=== PATIENT | female | born 1950 | race Caucasian/White ===

== ENCOUNTER 2016-05-07 14:15 | Outpatient (RCR) | payer MEDICARE, OTHER | END 2016-08-05 | disposition home or self-care (01) | LOC: ONC 14:15 | PROVIDERS: ATTEND Internal Medicine Hematology & Oncology | DX: D05.12 Intraductal carcinoma in situ of left breast (principal); C82.91 Follicular lymphoma, unspecified, lymph nodes of head, face, and neck; Z85.41 Personal history of malignant neoplasm of cervix uteri; E11.65 Type 2 diabetes mellitus with hyperglycemia; E78.5 Hyperlipidemia, unspecified; Z90.79 Acquired absence of other genital organ(s); Z79.899 Other long term (current) drug therapy; Z79.82 Long term (current) use of aspirin; Z92.3 Personal history of irradiation | CPT/HCPCS: 99213 ==

== ENCOUNTER 2017-05-02 14:53 | Outpatient (RCR) | payer MEDICARE, OTHER | END 2017-07-31 | disposition home or self-care (01) | LOC: ONC 14:53 | PROVIDERS: ATTEND Internal Medicine Hematology & Oncology | DX: D05.12 Intraductal carcinoma in situ of left breast (principal); C82.91 Follicular lymphoma, unspecified, lymph nodes of head, face, and neck; Z85.41 Personal history of malignant neoplasm of cervix uteri; E11.65 Type 2 diabetes mellitus with hyperglycemia; E78.5 Hyperlipidemia, unspecified; Z90.79 Acquired absence of other genital organ(s); Z79.899 Other long term (current) drug therapy; Z79.82 Long term (current) use of aspirin; Z92.3 Personal history of irradiation | CPT/HCPCS: 99213 ==

== ENCOUNTER → 2017-05-24 | Outpatient (CLI) | payer MEDICARE, OTHER | LOC: RAD 15:48 | PROVIDERS: ATTEND Internal Medicine Hematology & Oncology | DX: Z12.31 Encounter for screening mammogram for malignant neoplasm of breast (principal); Z86.000 Personal history of in-situ neoplasm of breast | CPT/HCPCS: 77067 ==

== ENCOUNTER 2018-05-26 10:35 | Outpatient (RCR) | payer MEDICARE, OTHER | END 2018-08-24 | disposition home or self-care (01) | LOC: ONC 10:35 | PROVIDERS: ATTEND Internal Medicine Hematology & Oncology | DX: D05.12 Intraductal carcinoma in situ of left breast (principal); C82.10 Follicular lymphoma grade II, unspecified site; Z85.41 Personal history of malignant neoplasm of cervix uteri; E11.9 Type 2 diabetes mellitus without complications; I10 Essential (primary) hypertension; E66.9 Obesity, unspecified; Z68.38 Body mass index [BMI] 38.0-38.9, adult; Z90.79 Acquired absence of other genital organ(s); Z79.84 Long term (current) use of oral hypoglycemic drugs; Z79.899 Other long term (current) drug therapy; Z92.3 Personal history of irradiation | CPT/HCPCS: 99213 ==

== ENCOUNTER → 2018-05-29 | Outpatient (CLI) | payer MEDICARE, OTHER ==
--- NOTE | 2018-05-29 21:33 | Diagnostic Imaging Report ---
EXAM: Digital mammogram, bilateral screening with 3-D tomosynthesis and CAD. FINDINGS: This study was compared to the prior exams of 05/24/2017, 05/20/2016 and 05/12/2015. The patient has undergone a lumpectomy for carcinoma in 2011. At this time, there are no complaints. FINDINGS: The postsurgical changes involving the left breast seen previously are again evident and no different. There is no sign of recurrent malignancy in this area. There are scattered fibroglandular densities in both breasts which could obscure a lesion. Overall, there does not appear to have been any significant change. There is no primary or secondary sign of malignancy noted. IMPRESSION: There is no evidence for malignancy. ACR BI-RADS Category 1: Negative. Result letter will be mailed to the patient. Note: At least 10% of breast cancer is not imaged by mammography. Dictated by: Dictated on workstation # [id number]
== END ==
LOC: RAD 07:25
PROVIDERS: ATTEND Nurse Practitioner
DX: Z12.31 Encounter for screening mammogram for malignant neoplasm of breast (principal); Z85.3 Personal history of malignant neoplasm of breast
CPT/HCPCS: 77067

== ENCOUNTER 2019-05-31 10:36 | Outpatient (RCR) | payer MEDICARE, OTHER ==
[2019-05-31 10:51] LABS: BASOPHILS % (AUTO) 0 % (0-10); EOSINOPHILS % (AUTO) 0 % (0-10); HEMATOCRIT 39 % (35-52); HEMOGLOBIN 12.9 G/DL (11.5-16.0); LYMPHOCYTES # (AUTO) 1.8 X 10^3 (1.0-4.0); LYMPHOCYTES % (AUTO) 26 % (12-44); MEAN CORPUSCULAR HEMOGLOBIN 29 PG (25-34); MEAN CORPUSCULAR HGB CONC 33 G/DL (32-36); MEAN CORPUSCULAR VOLUME 89 FL (80-99); MEAN PLATELET VOLUME 11.1 FL (7.4-10.4); MONOCYTES # (AUTO) 0.5 X 10^3 (0.0-1.0); MONOCYTES % (AUTO) 7 % (0-12); NEUTROPHILS # (AUTO) 4.6 X 10^3 (1.8-7.8); NEUTROPHILS % (AUTO) 67 % (42-75); PLATELET COUNT 282 10^3/uL (130-400); RED CELL DISTRIBUTION WIDTH 12.5 % (10.0-14.5)
[2019-05-31 11:10] LABS: ALANINE AMINOTRANSFERASE 12 U/L (0-55); ALBUMIN 4.4 GM/DL (3.2-4.5); ALKALINE PHOSPHATASE 97 U/L (40-136); BUN/CREATININE RATIO 19; CALCIUM 9.8 MG/DL (8.5-10.1); CARBON DIOXIDE 24 MMOL/L (21-32); CHLORIDE 101 MMOL/L (98-107); CREATININE SERUM 0.86 MG/DL (0.60-1.30); GFR ESTIMATED > 60; GLUCOSE 190 MG/DL (70-105); POTASSIUM 3.6 MMOL/L (3.6-5.0); SODIUM 140 MMOL/L (135-145); TOTAL PROTEIN 8.2 GM/DL (6.4-8.2)
[2019-05-31 12:00] LABS: BILIRUBIN,TOTAL < 0.5 MG/DL (0.1-1.0)
== END 2019-06-17 | disposition home or self-care (01) ==
LOC: ONC 10:36
PROVIDERS: ATTEND Internal Medicine Hematology & Oncology
DX: D05.12 Intraductal carcinoma in situ of left breast (principal); C82.10 Follicular lymphoma grade II, unspecified site; Z85.41 Personal history of malignant neoplasm of cervix uteri; E11.9 Type 2 diabetes mellitus without complications; I10 Essential (primary) hypertension; E66.9 Obesity, unspecified; Z68.38 Body mass index [BMI] 38.0-38.9, adult; Z90.79 Acquired absence of other genital organ(s); Z79.84 Long term (current) use of oral hypoglycemic drugs; Z79.899 Other long term (current) drug therapy; Z92.3 Personal history of irradiation
CPT/HCPCS: 80053; 83615; 85025; 99213

== ENCOUNTER → 2019-06-08 | Outpatient (CLI) | payer MEDICARE, OTHER ==
--- NOTE | 2019-06-08 11:41 | Diagnostic Imaging Report ---
INDICATION: Routine screening. Comparison is made with prior mammograms from 05/29/2018 and 05/24/2017. 2-D and 3-D bilateral screening mammography was performed. The current study was also evaluated with a Computer Aided Detection (CAD) system. 3-D tomosynthesis was also performed and reviewed. FINDINGS: Scattered fibroglandular densities are identified bilaterally. Postsurgical changes of lumpectomy in the upper left breast appear stable. No definite recurrence is seen. There are benign parenchymal and vascular calcifications bilaterally. The axillae are unremarkable. IMPRESSION: No mammographic features suspicious for malignancy are identified. ACR BI-RADS Category 2: Benign findings. Result letter will be mailed to the patient. Note: At least 10% of breast cancer is not imaged by mammography. Dictated by: Dictated on workstation # [id number]
== END ==
LOC: RAD 08:05
PROVIDERS: ATTEND Internal Medicine Hematology & Oncology
DX: Z12.31 Encounter for screening mammogram for malignant neoplasm of breast (principal); D05.12 Intraductal carcinoma in situ of left breast
CPT/HCPCS: 77067

== ENCOUNTER → 2020-06-03 | Outpatient (CLI) | payer MEDICARE, OTHER ==
[2020-06-03 09:46] LABS: BASOPHILS % (AUTO) 1 % (0-10); EOSINOPHILS % (AUTO) 1 % (0-10); HEMATOCRIT 38 % (35-52); HEMOGLOBIN 12.4 g/dL (11.5-16.0); LYMPHOCYTES # (AUTO) 1.8 10^3/uL (1.0-4.0); LYMPHOCYTES % (AUTO) 35 % (12-44); MEAN CORPUSCULAR HEMOGLOBIN 30 pg (25-34); MEAN CORPUSCULAR HGB CONC 33 g/dL (32-36); MEAN CORPUSCULAR VOLUME 90 fL (80-99); MEAN PLATELET VOLUME 10.6 fL (9.0-12.2); MONOCYTES # (AUTO) 0.4 10^3/uL (0.0-1.0); MONOCYTES % (AUTO) 8 % (0-12); NEUTROPHILS % (AUTO) 57 % (42-75); PLATELET COUNT 252 10^3/uL (130-400); WHITE BLOOD COUNT 5.2 10^3/uL (4.3-11.0)
[2020-06-03 10:08] LABS: ALANINE AMINOTRANSFERASE 21 U/L (0-55); ALBUMIN 3.9 GM/DL (3.2-4.5); ALKALINE PHOSPHATASE 93 U/L (40-136); BILIRUBIN,TOTAL 0.5 MG/DL (0.1-1.0); BUN/CREATININE RATIO 20; CALCIUM 9.2 MG/DL (8.5-10.1); CARBON DIOXIDE 24 MMOL/L (21-32); CHLORIDE 104 MMOL/L (98-107); CREATININE SERUM 0.81 MG/DL (0.60-1.30); GFR ESTIMATED > 60; GLUCOSE 181 MG/DL (70-105); POTASSIUM 3.6 MMOL/L (3.6-5.0); SODIUM 140 MMOL/L (135-145); TOTAL PROTEIN 7.5 GM/DL (6.4-8.2)
== END ==
LOC: EDSTATUS 06-18 16:05 → ONC 09:12
PROVIDERS: ATTEND Internal Medicine Hematology & Oncology
DX: D05.12 Intraductal carcinoma in situ of left breast (principal); Z85.72 Personal history of non-Hodgkin lymphomas; Z85.830 Personal history of malignant neoplasm of bone
CPT/HCPCS: 80053; 83615; 85025; G0463; 99213

== ENCOUNTER → 2020-06-10 | Outpatient (CLI) | payer MEDICARE, OTHER ==
--- NOTE | 2020-06-10 13:03 | Diagnostic Imaging Report ---
INDICATION: Routine screening. COMPARISON: 06/08/2019 and 05/29/2018. TECHNIQUE: 2D and 3D bilateral screening mammography was performed with CAD. FINDINGS: Scattered fibroglandular densities are identified bilaterally. Post-lumpectomy changes in the upper posterior left breast are again noted. There are benign calcifications. No new mass or malignant appearing microcalcifications are seen. The axillae are unremarkable. IMPRESSION: No mammographic features suspicious for malignancy are identified. ACR BI-RADS Category 2: Benign findings. Result letter will be mailed to the patient. Note: At least 10% of breast cancer is not imaged by mammography. Dictated by: Dictated on workstation # [id number]
== END ==
LOC: RAD 10:00
PROVIDERS: ATTEND Internal Medicine Hematology & Oncology
DX: Z12.31 Encounter for screening mammogram for malignant neoplasm of breast (principal); D05.12 Intraductal carcinoma in situ of left breast; Z98.890 Other specified postprocedural states
CPT/HCPCS: 77063; 77067

== ENCOUNTER → 2021-06-02 | Outpatient (CLI) | payer MEDICARE, OTHER ==
[2021-06-02 10:02] LABS: BASOPHILS # (AUTO) 0.1 10^3/uL (0.0-0.1); BASOPHILS % (AUTO) 1 % (0-10); EOSINOPHILS % (AUTO) 1 % (0-10); HEMATOCRIT 40 % (35-52); HEMOGLOBIN 13.5 g/dL (11.5-16.0); LYMPHOCYTES # (AUTO) 2.1 10^3/uL (1.0-4.0); LYMPHOCYTES % (AUTO) 35 % (12-44); MEAN CORPUSCULAR HEMOGLOBIN 30 pg (25-34); MEAN CORPUSCULAR HGB CONC 34 g/dL (32-36); MEAN CORPUSCULAR VOLUME 89 fL (80-99); MEAN PLATELET VOLUME 11.4 fL (9.0-12.2); MONOCYTES # (AUTO) 0.4 10^3/uL (0.0-1.0); MONOCYTES % (AUTO) 7 % (0-12); NEUTROPHILS # (AUTO) 3.3 10^3/uL (1.8-7.8); NEUTROPHILS % (AUTO) 56 % (42-75); PLATELET COUNT 222 10^3/uL (130-400); WHITE BLOOD COUNT 5.9 10^3/uL (4.3-11.0)
[2021-06-02 10:22] LABS: BILIRUBIN,TOTAL 0.6 MG/DL (0.1-1.0); CALCIUM 9.9 MG/DL (8.5-10.1); CREATININE SERUM 1.12 MG/DL (0.60-1.30); POTASSIUM 3.7 MMOL/L (3.6-5.0)
== END ==
LOC: ONC 09:52
PROVIDERS: ATTEND Internal Medicine Hematology & Oncology
DX: D05.12 Intraductal carcinoma in situ of left breast (principal); C82.90 Follicular lymphoma, unspecified, unspecified site; I10 Essential (primary) hypertension; E66.9 Obesity, unspecified; Z90.12 Acquired absence of left breast and nipple; Z92.3 Personal history of irradiation; Z85.41 Personal history of malignant neoplasm of cervix uteri; Z92.21 Personal history of antineoplastic chemotherapy
CPT/HCPCS: 80053; 83615; 85025; G0463; 99213

== ENCOUNTER → 2021-06-08 | Outpatient (CLI) | payer MEDICARE ==
--- NOTE | 2021-06-08 12:50 | Diagnostic Imaging Report ---
INDICATION: Left breast carcinoma. COMPARISON: 06/10/2020 and 06/08/2019. TECHNIQUE: 2D and 3D bilateral diagnostic mammography was performed with CAD. FINDINGS: Scattered fibroglandular densities are identified bilaterally. Lumpectomy changes in the upper left breast at posterior depth appear stable. No new mass is identified. No malignant-appearing microcalcifications are seen. There are benign calcifications bilaterally. The axillae are unremarkable. IMPRESSION: No mammographic features suspicious for malignancy are identified. ACR BI-RADS Category 2: Benign findings. Result letter will be mailed to the patient. Note: At least 10% of breast cancer is not imaged by mammography. Dictated by: Dictated on workstation # [id number]
== END ==
LOC: RAD 12:45
PROVIDERS: ATTEND Nurse Practitioner Adult Health
DX: D05.12 Intraductal carcinoma in situ of left breast (principal)
CPT/HCPCS: 77066; G0279; 77062

== ENCOUNTER 2021-10-11 12:09 | Inpatient (IN) | payer MEDICARE ==
[~2021-10-11] VITALS: Ht 167.7 cm; Wt 96.7 kg
[2021-10-11] VITALS (9 sets, daily range): BP systolic 120–188; BP diastolic 61–122
[2021-10-11 12:27] LABS: BASOPHILS % (AUTO) 1 % (0-10); EOSINOPHILS % (AUTO) 0 % (0-10); HEMATOCRIT 41 % (35-52); HEMOGLOBIN 13.7 g/dL (11.5-16.0); LYMPHOCYTES # (AUTO) 1.8 10^3/uL (1.0-4.0); LYMPHOCYTES % (AUTO) 21 % (12-44); MEAN CORPUSCULAR HEMOGLOBIN 30 pg (25-34); MEAN CORPUSCULAR HGB CONC 34 g/dL (32-36); MEAN CORPUSCULAR VOLUME 89 fL (80-99); MEAN PLATELET VOLUME 11.3 fL (9.0-12.2); MONOCYTES # (AUTO) 0.4 10^3/uL (0.0-1.0); MONOCYTES % (AUTO) 5 % (0-12); NEUTROPHILS # (AUTO) 6.1 10^3/uL (1.8-7.8); NEUTROPHILS % (AUTO) 73 % (42-75); PLATELET COUNT 213 10^3/uL (130-400); WHITE BLOOD COUNT 8.4 10^3/uL (4.3-11.0)
[2021-10-11] MEDS ORDERED: ONDANSETRON 4 MG/2 ML (SDV) Z0FRAN IVP ONE (12:30)
[2021-10-11 12:38] LABS: ALBUMIN 4.3 GM/DL (3.2-4.5); CHLORIDE 99 MMOL/L (98-107); POTASSIUM 3.4 MMOL/L (3.6-5.0); SODIUM 139 MMOL/L (135-145)
[2021-10-11 12:39] LABS: CALCIUM 9.6 MG/DL (8.5-10.1)
[2021-10-11 12:40] LABS: FIBRIN DEGRADATION PRODUCTS 0.78 UG/ML (0.00-0.49); GLUCOSE 368 MG/DL (70-105); INR 0.9 (0.8-1.4); PROTHROMBIN TIME PATIENT 12.6 SEC (12.2-14.7); TOTAL PROTEIN 8.4 GM/DL (6.4-8.2)
[2021-10-11 12:41] LABS: CARBON DIOXIDE 23 MMOL/L (21-32)
[2021-10-11 12:42] LABS: BILIRUBIN,TOTAL 0.6 MG/DL (0.1-1.0)
[2021-10-11 12:44] LABS: ALKALINE PHOSPHATASE 122 U/L (40-136); CREATININE SERUM 0.94 MG/DL (0.60-1.30); GFR ESTIMATED 65
[2021-10-11 12:45] LABS: BUN/CREATININE RATIO 12
[2021-10-11] MEDS ORDERED: CATHETER FLUSH 10 ML SYR IV PRN (12:45)
[2021-10-11] MEDS ORDERED: IOHEXOL 350 MG/ML 100 ML (OMNIPAQUE 350) VIAL IV ONE (12:45)
[2021-10-11] MEDS ORDERED: HOLD METFORMIN - RECEIVED CONTRAST 20 ML VIAL IV SCH (12:45)
[2021-10-11] MEDS ORDERED: NS 100 ML (IVPB) BAG IV ONE (12:45)
--- NOTE | 2021-10-11 12:45 | Diagnostic Imaging Report ---
PROCEDURE: CT head wo r/o stroke. TECHNIQUE: Multiple contiguous axial images were obtained through the brain without the use of intravenous contrast. Auto Exposure Controls were utilized during the CT exam to meet ALARA standards for radiation dose reduction. INDICATION: Left-sided weakness. FINDINGS: Noncontrasted head CT performed. I have no priors for comparison. There is moderate cerebrocortical atrophy. There is substantial periventricular white matter disease, relatively symmetric and while nonspecific, most often associated with the sequelae of chronic small vessel disease. There was no sulcal effacement. No cortical edema. There is a lacunar infarct in the right thalamus, favored to be old. There is no hemorrhage. No findings of elevation of the intracerebral pressures. There are ossifications along the falx and dura, chronic and incidental. No abnormal extra-axial fluid collection. There are intracranial carotid atherosclerotic vascular calcifications. No suspicious asymmetric intraluminal arterial hyperdensities are found. There is no loss of the normal insular ribbon. IMPRESSION: No hemorrhage or edema. Likely old lacunar infarct. Right thalamus atrophy, ventriculomegaly, and likely chronic symmetrical periventricular white matter small vessel disease with no acute-appearing abnormality apparent. Dictated by: Dictated on workstation # [id number]
[2021-10-11 12:47] LABS: ALANINE AMINOTRANSFERASE 25 U/L (0-55)
--- NOTE | 2021-10-11 12:49 | Diagnostic Imaging Report ---
PROCEDURE: CT cervical spine without contrast. TECHNIQUE: Multiple contiguous axial images were obtained through the cervical spine without the use of intravenous contrast. Sagittal and coronal reformations were then performed. Auto Exposure Controls were utilized during the CT exam to meet ALARA standards for radiation dose reduction. INDICATION: Fall and left-sided weakness. FINDINGS: There is straightening of the normal cervical lordotic curvature. There is minimal anterolisthesis of C4 on C5. Multilevel degenerative disc disease is noted with variable disc space narrowing and marginal spurring. There is multilevel facet arthropathy. No fractures are identified. Prevertebral tissues are within normal limits. Odontoid is intact. There does appear to be a probable large mass arising from the left lobe of the thyroid. IMPRESSION: 1. Cervical spondylosis. No acute bony abnormality is detected. 2. Left lobe thyroid mass. Dedicated thyroid ultrasound on a nonemergent basis could be performed for better characterization. Dictated by: Dictated on workstation # [id number]
[2021-10-11 12:54] LABS: BILIRUBIN,URINE NEGATIVE (NEGATIVE); CLARITY,URINE CLEAR; COLOR,URINE YELLOW; GLUCOSE, URINE (UA) 3+ (NEGATIVE); KETONES,URINE TRACE (NEGATIVE); LEUKOCYTE ESTERASE ,URINE NEGATIVE (NEGATIVE); NITRITE,URINE NEGATIVE (NEGATIVE); PROTEIN,URINE 1+ (NEGATIVE)
--- NOTE | 2021-10-11 12:57 | Diagnostic Imaging Report ---
INDICATION: Altered mental status FINDINGS: No priors The heart size is within normal limits. There is however prominence of the central vascularity. There is thickening of the central airways and perihilar bronchial cuffing. No haider edema or focal consolidating pneumonia. No pleural fluid. IMPRESSION: There is some perihilar vascular prominence as well as thickening of the central airways suggestive of bronchitis. No focal pneumonia or pleural pathology. Dictated by: Dictated on workstation # [id number]
[2021-10-11 13:00] LABS: BACTERIA,URINE NEGATIVE /HPF
--- NOTE | 2021-10-11 13:09 | Diagnostic Imaging Report ---
PROCEDURE: CT angiography of the head and CT angiography of the neck with and without contrast. TECHNIQUE: Contiguous noncontrast images were obtained from the skull base through the vertex. After intravenous contrast administration, helical CT angiography of the neck was performed. Source data was reformatted into 3D MIP projections. Delayed post contrast acquisition was also obtained. Auto Exposure Controls were utilized during the CT exam to meet ALARA standards for radiation dose reduction. INDICATION: Altered mental status. COMPARISON: Exam correlated with head CT of earlier this same date. No prior angiographic studies. FINDINGS: Delayed post contrast-enhanced head CT revealed no abnormal parenchymal or meningeal enhancement. There is enhancement of the major dural venous sinuses. CT ANGIO NECK: Aortic arch and branching pattern of the great vessels is normal. There are bilateral mixed solid and cystic thyroid masses with some peripheral coarse calcifications, likely adenomatous disease but nonemergent outpatient dedicated thyroid ultrasound recommended at some point. The right vertebral artery is dominant and widely patent. The left vertebral is small but not pathologic. This is a congenital finding, as evidenced by the small left-sided cervical transverse foramen. No acute vertebral arterial pathology is found. There are mild calcified plaques at the carotid bifurcations extending into the proximal ICAs without significant stenosis, this is greater left than right. No carotid intimal injury or dissection. No hemodynamically significant stenosis. No pseudoaneurysm. CT ANGIO HEAD: The dominant intrathecal right vertebral artery is widely patent through the basilar. Small-caliber left vertebral terminates as the PICA as a variant. The basilar is patent. 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 Intracranial ICAs showed no hemodynamically significant degree of stenosis. The A1 segments, the ACOM, and the ulr-er-ogouoc anterior cerebral arteries are normal. The bilateral middle cerebral arterial segments and their primary branches are patent. No asymmetric cortical perfusion and opacification of vascularity. No thrombus. No aneurysm. IMPRESSION: 1. No hemodynamically significant cervical or intracranial arterial stenosis. No large vessel occlusion, thrombus, dissection, or acute arterial pathology. 2. Likely goiterous thyroid but nonemergent outpatient sonographic correlation recommended. 3. Chronic atrophy, white matter disease, and an old-appearing right thalamic lacunar infarct. Dictated by: Dictated on workstation # [id number]
[2021-10-11 14:31] LABS: AMPHETAMINE SCREEN, URINE NEGATIVE (NEGATIVE); BARBITURATE SCREEN URINE NEGATIVE (NEGATIVE); BENZODIAZEPINES SCREEN URINE NEGATIVE (NEGATIVE); CANNABINOID SCREEN, URINE NEGATIVE (NEGATIVE); COCAINE SCREEN URINE NEGATIVE (NEGATIVE); METHADONE STAT NEGATIVE (NEGATIVE); OPIATE SCREEN URINE NEGATIVE (NEGATIVE); OXYCODONE STAT NEGATIVE (NEGATIVE); PROPOXYPHENE STAT NEGATIVE (NEGATIVE); TRICYCLIC ANTIDEPRESSANTS SCRE NEGATIVE (NEGATIVE)
[2021-10-11 14:45] LABS: FREE T4 (FREE THYROXINE) 1.05 NG/DL (0.70-1.48)
[2021-10-11] MEDS ORDERED: SCOPOLAMINE 1.5 MG (TRANSDERM-SCOP) PATCH TD ONE (16:00)
[2021-10-11] MEDS: niCARdipine IV 50 MG in NS (IVPB) 230 ML IV SCH ×3 (16:00→21:14)
--- NOTE | 2021-10-11 16:15 | ED Neurological Problem ---
General Chief Complaint: Neurological Problems Stated Complaint: AMS/POSS STROKE Nursing Triage Note: PT TO ROOM 03 [facility]IA [facility] WITH C/O CONFUSION AND WEAKNESS. PER EMS, STATED THAT PT WAS "FINE WHEN SHE WENT TO BED LAST NIGHT". Source: patient Exam Limitations: no limitations History of Present Illness Date Seen by Provider: Oct 11, 2021 Time Seen by Provider: 12:10 Initial Comments This is 70-year-old woman presents to the emergency room via EMS with primary complaint of altered mental status and general weakness. Her significant other notes that her last known well time was somewhere between 0530 and 0700. She seemed to be normal this morning when she woke up. However, when her significant other (Kwaku Conroy, ) came back into the house around 0700, he noted that she was not verbally as responsive as she had been earlier. When she got up to walk, he noted that she was unsteady on her feet. These symptoms seem to worsen to the extent he wanted to bring her to the emergency room. She was not able to make it to the car and slumped down to the ground. Kwaku thought she could not see well around this time. There was no trauma associated with this. By the time she arrives to the hospital she is not answering questions and appears nonverbal. At 1 point there was report of right-sided weakness but this was not observed by ER staff nor the significant other. In fact, in CT scan she was noted to reach up with purposeful movement and scratch her nose with her right hand. Stroke activation was paged and patient was taken promptly to CT. EMS noted she was significantly hypertensive with systolic blood pressures as high as the 220s. Patient does have a known history of hypertension and it is unknown when she last took her medications. The significant other has no suspicion of overdose, although he does note she takes numerous herbal supplements of which he disapproves. Patient was also vomiting prior to arrival. A meaningful NIH stroke score was not obtained as patient was not following instructions during attempt to perform the NIH tests. Patient's power of employment attorney is her niece, Laura Romo, . Allergies and Home Medications Allergies Coded Allergies: No Known Drug Allergies (Verified , 05/02/07) Patient Home Medication List Home Medication List Reviewed: Yes Review of Systems Review of Systems Constitutional: see HPI, weakness Eyes: See HPI Ears, Nose, Mouth, Throat: no symptoms reported Respiratory: no symptoms reported Cardiovascular: see HPI Gastrointestinal: see HPI Genitourinary: no symptoms reported : No Musculoskeletal: no symptoms reported Skin: no symptoms reported Psychiatric/Neurological: No Symptoms Reported Endocrine: No Symptoms Reported Past Fzjfmew-Kgrqdb-Dczkro Hx Patient Social History Smoking Status: Unknown if Ever Smoked Smokeless Tobacco Frequency: Unknown if Ever Used Use of E-Cig and/or Vaping dev: Unable to obtain Use of E-Cig and/or Vaping Parveen: Unknown if Ever Used Substance use?: Unable to obtain Alcohol Use?: Unable to obtain Pt feels they are or have been: Unable to obtain Past Medical History Surgeries: Yes Breast (For treatment of breast cancer) Cardiac: Yes Hypertension Neurological: No : No Reproductive Disorders: No Genitourinary: No Gastrointestinal: No Musculoskeletal: No Endocrine: Yes Diabetes, Non-Insulin dep HEENT: No Cancer: Yes Breast, Lymphoma Did You Recieve Any Treatments: Yes What Type of Treatment Did You: Surgical Intervention Psychosocial: No Physical Exam Vital Signs Vital Signs - First Documented 10/11/21 12:09 Temp 36.5 Pulse 105 Resp 16 B/P (MAP) 231/107 (148) Pulse Ox 94 O2 Delivery Nasal Cannula O2 Flow Rate 2.00 Capillary Refill : Less Than 3 Seconds Height, Weight, BMI Height: '" Weight: lbs. oz. kg; 29.00 BMI Method: General Appearance: WD/WN, no apparent distress HEENT: PERRL/EOMI, normal ENT inspection Neck: normal inspection Respiratory: lungs clear, normal breath sounds, no respiratory distress Cardiovascular: regular rate, rhythm, no edema, no murmur Gastrointestinal: non tender, soft; No distended Extremities: normal inspection, no pedal edema Neurologic/Psychiatric: other (Basically unresponsive to voice and not following commands. Moves all 4 extremities equally and demonstrates purposeful movement with actions such as scratching her nose or pulling up the covers.) Crainal Nerves: PERRL Motor/Sensory: no motor deficit Skin: normal color, warm/dry Progress/Results/Core Measures Results/Orders Lab Results Laboratory Tests Test 10/11/21 12:18 10/11/21 12:45 Range/Units White Blood Count 8.4 4.3-11.0 10^3/uL Red Blood Count 4.56 3.80-5.11 10^6/uL Hemoglobin 13.7 11.5-16.0 g/dL Hematocrit 41 35-52 % Mean Corpuscular Volume 89 80-99 fL Mean Corpuscular Hemoglobin 30 25-34 pg Mean Corpuscular Hemoglobin Concent 34 32-36 g/dL Red Cell Distribution Width 12.0 10.0-14.5 % Platelet Count 213 130-400 10^3/uL Mean Platelet Volume 11.3 9.0-12.2 fL Immature Granulocyte % (Auto) 0 % Neutrophils (%) (Auto) 73 42-75 % Lymphocytes (%) (Auto) 21 12-44 % Monocytes (%) (Auto) 5 0-12 % Eosinophils (%) (Auto) 0 0-10 % Basophils (%) (Auto) 1 0-10 % Neutrophils # (Auto) 6.1 1.8-7.8 10^3/uL Lymphocytes # (Auto) 1.8 1.0-4.0 10^3/uL Monocytes # (Auto) 0.4 0.0-1.0 10^3/uL Eosinophils # (Auto) 0.0 0.0-0.3 10^3/uL Basophils # (Auto) 0.0 0.0-0.1 10^3/uL Immature Granulocyte # (Auto) 0.0 0.0-0.1 10^3/uL Neutrophils % (Manual) 68 % Lymphocytes % (Manual) 24 % Monocytes % (Manual) 5 % Basophils % (Manual) 1 % Band Neutrophils 2 % Blood Morphology Comment NORMAL Prothrombin Time 12.6 12.2-14.7 SEC INR Comment 0.9 0.8-1.4 Activated Partial Thromboplast Time 24 24-35 SEC D-Dimer 0.78 H 0.00-0.49 UG/ML Sodium Level 139 135-145 MMOL/L Potassium Level 3.4 L 3.6-5.0 MMOL/L Chloride Level 99 98-107 MMOL/L Carbon Dioxide Level 23 21-32 MMOL/L Anion Gap 17 H 5-14 MMOL/L Blood Urea Nitrogen 11 7-18 MG/DL Creatinine 0.94 0.60-1.30 MG/DL Estimat Glomerular Filtration Rate 65 BUN/Creatinine Ratio 12 Glucose Level 368 H 70-105 MG/DL Calcium Level 9.6 8.5-10.1 MG/DL Corrected Calcium 9.4 8.5-10.1 MG/DL Total Bilirubin 0.6 0.1-1.0 MG/DL Aspartate Amino Transf (AST/SGOT) 18 5-34 U/L Alanine Aminotransferase (ALT/SGPT) 25 0-55 U/L Alkaline Phosphatase 122 40-136 U/L Troponin I < 0.028 <0.028 NG/ML C-Reactive Protein High Sensitivity 0.36 0.00-0.50 MG/DL Total Protein 8.4 H 6.4-8.2 GM/DL Albumin 4.3 3.2-4.5 GM/DL Procalcitonin 0.05 <0.10 NG/ML Thyroid Stimulating Hormone (TSH) 0.01 L 0.35-4.94 UIU/ML Free Thyroxine 1.05 0.70-1.48 NG/DL Serum Alcohol < 10 <10 MG/DL Urine Color YELLOW Urine Clarity CLEAR Urine pH 7.0 5-9 Urine Specific [place] 1.010 L 1.016-1.022 Urine Protein 1+ H NEGATIVE Urine Glucose (UA) 3+ H NEGATIVE Urine Ketones TRACE H NEGATIVE Urine Nitrite NEGATIVE NEGATIVE Urine Bilirubin NEGATIVE NEGATIVE Urine Urobilinogen 0.2 < = 1.0 MG/DL Urine Leukocyte Esterase NEGATIVE NEGATIVE Urine RBC (Auto) 1+ H NEGATIVE Urine RBC 5-10 H /HPF Urine WBC NONE /HPF Urine Crystals NONE /LPF Urine Bacteria NEGATIVE /HPF Urine Casts NONE /LPF Urine Mucus NEGATIVE /LPF Urine Culture Indicated NO Urine Opiates Screen NEGATIVE NEGATIVE Urine Oxycodone Screen NEGATIVE NEGATIVE Urine Methadone Screen NEGATIVE NEGATIVE Urine Propoxyphene Screen NEGATIVE NEGATIVE Urine Barbiturates Screen NEGATIVE NEGATIVE Ur Tricyclic Antidepressants Screen NEGATIVE NEGATIVE Urine Phencyclidine Screen NEGATIVE NEGATIVE Urine Amphetamines Screen NEGATIVE NEGATIVE Urine Methamphetamines Screen NEGATIVE NEGATIVE Urine Benzodiazepines Screen NEGATIVE NEGATIVE Urine Cocaine Screen NEGATIVE NEGATIVE Urine Cannabinoids Screen NEGATIVE NEGATIVE My Orders Orders - OLEGARIO VILLASENOR MD Ondansetron Injection (Zofran Injectio (10/11/21 12:30) Cbc With Automated Diff (10/11/21 12:18) Protime With Inr (10/11/21 12:18) Partial Thromboplastin Time (10/11/21 12:18) Comprehensive Metabolic Panel (10/11/21 12:18) Fibrin Degradation Products (10/11/21 12:18) Troponin I [place] (10/11/21 12:18) Ua Culture If Indicated (10/11/21 12:18) Chest 1 View, Ap/Pa Only (10/11/21 12:18) Catheter(Urinary) Insert & Ass 03,15 (10/11/21 12:18) Ekg Tracing (10/11/21 12:18) Nothing By Mouth (10/11/21 Lunch) Accucheck Stat ONCE (10/11/21 12:18) Ed Iv/Invasive Line Start (10/11/21 12:18) Ed Iv/Invasive Line Start (10/11/21 12:18) Vital Signs Stroke Patient Q15M (10/11/21 12:18) Ct Head Wo-R/O Stroke (10/11/21 12:18) O2 (10/11/21 12:18) Intake & Output 06,14,22 (10/11/21 12:18) Monitor-Rhythm Ecg Trace Only (10/11/21 12:18) Dysphagia Screening Tool Q10MX1 (10/11/21 12:18) Post Thrombolytic Adminstratio (10/11/21 12:18) Lipid Panel (10/12/21 06:00) Ct Cervical Spine Wo (10/11/21 12:21) Ct Angio Head/Neck (10/11/21 12:29) Iohexol Injection (Omnipaque 350 Mg/Ml 1 (10/11/21 12:45) Received Contrast (Hold Metformin- Contr (10/11/21 12:45) Ns (Ivpb) (Sodium Chloride 0.9% Ivpb Bag (10/11/21 12:45) Sodium Chloride Flush (Catheter Flush Sy (10/11/21 12:45) Free T4 (Free Thyroxine) (10/11/21 14:02) Thyroid Stimulating Hormone (10/11/21 14:02) Alcohol (10/11/21 14:12) Drug Screen Stat (Urine) (10/11/21 14:12) Ns (Ivpb) (Sodium C... W/Nicardipine Iv (10/11/21 14:15) Medications Given in ED Current Medications Medications Dose Ordered Sig/Anthony Route Start Time Stop Time Status Last Admin Dose Admin Iohexol 100 ml ONCE ONCE IV 10/11/21 12:45 10/11/21 12:46 DC 10/11/21 12:42 75 ML Ondansetron HCl 8 mg ONCE ONCE IVP 10/11/21 12:30 10/11/21 12:31 DC 10/11/21 12:30 8 MG Sodium Chloride 10 ml NEEDED PRN IV 10/11/21 12:45 10/11/21 12:42 10 ML Sodium Chloride 100 ml ONCE ONCE IV 10/11/21 12:45 10/11/21 12:46 DC 10/11/21 12:42 100 ML Vital Signs/I&O 10/11/21 12:09 Temp 36.5 Pulse 105 Resp 16 B/P (MAP) 231/107 (148) Pulse Ox 94 O2 Delivery Nasal Cannula O2 Flow Rate 2.00 Blood Pressure Mean: 135 Progress Progress Note #1: Time: 16:13 Progress Note Stroke activation was paged and patient was taken promptly to CT. No acute findings were seen on CT or CT angiogram of the head and neck. Patient remained hypertensive and she was eventually started on a Cardene drip at the recommendation of Dr. Harry, stroke neurologist at [facility]. Case was reviewed with her at 13:40. Based on presentation, it seems unlikely this is an acute ischemic stroke event. There is potential for hypertensive encephalopathy. For this reason she recommended a very gentle reduction in blood pressure to a target of 180 systolic for the time being. Case was reviewed with Dr. Jacobs who recommended testing for influenza and COVID as the vomiting may be related to infectious illness. These tests were added and are pending at this time. [facility]. Progress Note #2: Time: 17:19 Progress Note Patient was admitted with a working diagnosis of hypertensive encephalopathy as a cause for her altered mental status. I was discussing the case with the patient's family when we noticed she was starting to heave. A dose of Zofran 4 mg was administered and it was noted at that time that she felt warm and had increasing tachycardia. Her temperature was measured at 102.1 at that time. She was previously afebrile and there were no indications of infectious etiology in her work-up. Flu and COVID results were reviewed and were negative. In light of the new development of fever and tachycardia, investigation for possible meningitis was deemed necessary. I discussed the situation with Dr. Jacobs who agreed. Arrangements were being made to obtain a lumbar puncture and start Rocephin 2 g IV. Orders had already been written for admission and while I was making these arrangements the patient was taken to the ICU. I communicated new orders including the septic work-up with blood cultures and lactic acid, pain management with fentanyl, the Rocephin dose, and need for LP to the ICU nurse. I arranged for the LP to be obtained by the nurse bit grinder on-call. eICU is being updated as well. CRP and procalcitonin were also added to the labs. Initial ECG Impression Date: Oct 11, 2021 Initial ECG Impression Time: 12:46 Initial ECG Rate: 101 Initial ECG Rhythm: S.Tach Comment Sinus tachycardia with no STEMI. Borderline ST changes are nondiagnostic. No abnormal intervals or axis deviation. Diagnostic Imaging Diagonstic Imaging: Xray Plain Films/CT/US/NM/MRI: chest Comments NAME: TOR GOODMAN MED REC#: [id number] PT STATUS: REG ER : 1950 PHYSICIAN: OLEGARIO VILLASENOR MD ADMIT DATE: 10/11/21/ER Signed Date of Exam:10/11/21 CHEST 1 VIEW, AP/PA ONLY INDICATION: Altered mental status FINDINGS: No priors The heart size is within normal limits. There is however prominence of the central vascularity. There is thickening of the central airways and perihilar bronchial cuffing. No haider edema or focal consolidating pneumonia. No pleural fluid. IMPRESSION: There is some perihilar vascular prominence as well as thickening of the central airways suggestive of bronchitis. No focal pneumonia or pleural pathology. Dictated by: Dictated on workstation # [id number] Dict: 10/11/21 1247 Trans: 10/11/21 1427 [facility] [id number] Interpreted by: JUAN MIGUEL VALADEZ Electronically signed by: JUAN MIGUEL VALADEZ 10/11/211426 Reviewed: Reviewed by Me Diagonstic Imaging: CT Plain Films/CT/US/NM/MRI: head Comments CT head viewed by me and report reviewed. See report below: NAME: TOR GOODMAN MED REC#: [id number] PT STATUS: REG ER : 1950 PHYSICIAN: OLEGARIO VILLASENOR MD ADMIT DATE: 10/11/21/ER Signed Date of Exam:10/11/21 CT HEAD WO-R/O STROKE PROCEDURE: CT head wo r/o stroke. TECHNIQUE: Multiple contiguous axial images were obtained through the brain without the use of intravenous contrast. Auto Exposure Controls were utilized during the CT exam to meet ALARA standards for radiation dose reduction. INDICATION: Left-sided weakness. FINDINGS: Noncontrasted head CT performed. I have no priors for comparison. There is moderate cerebrocortical atrophy. There is substantial periventricular white matter disease, relatively symmetric and while nonspecific, most often associated with the sequelae of chronic small vessel disease. There was no sulcal effacement. No cortical edema. There is a lacunar infarct in the right thalamus, favored to be old. There is no hemorrhage. No findings of elevation of the intracerebral pressures. There are ossifications along the falx and dura, chronic and incidental. No abnormal extra-axial fluid collection. There are intracranial carotid atherosclerotic vascular calcifications. No suspicious asymmetric intraluminal arterial hyperdensities are found. There is no loss of the normal insular ribbon. IMPRESSION: No hemorrhage or edema. Likely old lacunar infarct. Right thalamus atrophy, ventriculomegaly, and likely chronic symmetrical periventricular white matter small vessel disease with no acute-appearing abnormality apparent. Dictated by: Dictated on workstation # [id number] Dict: 10/11/21 1232 Trans: 10/11/21 1428 [facility] [id number] Interpreted by: JUAN MIGUEL VALADEZ Electronically signed by: JUAN MIGUEL VALADEZ 10/11/21 1428 Diagonstic Imaging: CT Plain Films/CT/US/NM/MRI: other (Angiogram head and neck) Comments NAME: TOR GOODMAN [facility] REC#: [id number] PT STATUS: REG ER : 1950 PHYSICIAN: OLEGARIO VILLASENOR MD ADMIT DATE: 10/11/21/ER Signed Date of Exam:10/11/21 CT ANGIO HEAD/NECK PROCEDURE: CT angiography of the head and CT angiography of the neck with and without contrast. TECHNIQUE: Contiguous noncontrast images were obtained from the skull base through the vertex. After intravenous contrast administration, helical CT angiography of the neck was performed. Source data was reformatted into 3D MIP projections. Delayed post contrast acquisition was also obtained. Auto Exposure Controls were utilized during the CT exam to meet ALARA standards for radiation dose reduction. INDICATION: Altered mental status. COMPARISON: Exam correlated with head CT of earlier this same date. No prior angiographic studies. FINDINGS: Delayed post contrast-enhanced head CT revealed no abnormal parenchymal or meningeal enhancement. There is enhancement of the major dural venous sinuses. CT ANGIO NECK: Aortic arch and branching pattern of the great vessels is normal. There are bilateral mixed solid and cystic thyroid masses with some peripheral coarse calcifications, likely adenomatous disease but nonemergent outpatient dedicated thyroid ultrasound recommended at some point. The right vertebral artery is dominant and widely patent. The left vertebral is small but not pathologic. This is a congenital finding, as evidenced by the small left-sided cervical transverse foramen. No acute vertebral arterial pathology is found. There are mild calcified plaques at the carotid bifurcations extending into the proximal ICAs without significant stenosis, this is greater left than right. No carotid intimal injury or dissection. No hemodynamically significant stenosis. No pseudoaneurysm. CT ANGIO HEAD: The dominant intrathecal right vertebral artery is widely patent through the basilar. Small-caliber left vertebral terminates as the PICA as a variant. The basilar is patent. The bilateral [employer] segments are widely patent. Intracranial ICAs showed no hemodynamically significant degree of stenosis. The A1 segments, the ACOM, and the [id number]-[id number] anterior cerebral arteries are normal. The bilateral middle cerebral arterial segments and their primary branches are patent. No asymmetric cortical perfusion and opacification of vascularity. No thrombus. No aneurysm. IMPRESSION: 1. No hemodynamically significant cervical or intracranial arterial stenosis. No large vessel occlusion, thrombus, dissection, or acute arterial pathology. 2. Likely goiterous thyroid but nonemergent outpatient sonographic correlation recommended. 3. Chronic atrophy, white matter disease, and an old-appearing right thalamic lacunar infarct. Dictated by: Dictated on workstation # [id number] Dict: 10/11/21 1243 Trans: 10/11/21 1428 AS6 [id number] Interpreted by: JUAN MIGUEL VALADEZ Electronically signed by: JUAN MIGUEL VALADEZ 10/11/21 1428 Reviewed: Reviewed by Nv Diagonstic Imaging: CT Plain Films/CT/US/NM/MRI: c-spine Comments CT C-spine viewed by me and report reviewed. See report below: NAME: TOR GOODMAN [facility] REC#: [id number] PT STATUS: REG ER : 1950 PHYSICIAN: OLEGARIO VILLASENOR MD ADMIT DATE: 10/11/21/ER Signed Date of Exam:10/11/21 CT CERVICAL SPINE WO PROCEDURE: CT cervical spine without contrast. TECHNIQUE: Multiple contiguous axial images were obtained through the cervical spine without the use of intravenous contrast. Sagittal and coronal reformations were then performed. Auto Exposure Controls were utilized during the CT exam to meet ALARA standards for radiation dose reduction. INDICATION: Fall and left-sided weakness. FINDINGS: There is straightening of the normal cervical lordotic curvature. There is minimal anterolisthesis of C4 on C5. Multilevel degenerative disc disease is noted with variable disc space narrowing and marginal spurring. There is multilevel facet arthropathy. No fractures are identified. Prevertebral tissues are within normal limits. Odontoid is intact. There does appear to be a probable large mass arising from the left lobe of the thyroid. IMPRESSION: 1. Cervical spondylosis. No acute bony abnormality is detected. 2. Left lobe thyroid mass. Dedicated thyroid ultrasound on a nonemergent basis could be performed for better characterization. Dictated by: Dictated on workstation # [id number] Dict: 10/11/21 1233 Trans: 10/11/21 1527 AS6 [id number] Interpreted by: VANCE ART MD Electronically signed by: VANCE ART MD 10/11/21 1527 Departure Communication (Admissions) Time/Spoke to Admitting Phy: 15:11 Dr. Jacobs Impression Primary Impression: Altered mental status Qualified Codes: R41.82 - Altered mental status, unspecified Additional Impressions: Nausea and vomiting Qualified Codes: R11.2 - Nausea with vomiting, unspecified Hypertensive emergency Fever Qualified Codes: R50.9 - Fever, unspecified Thyroid mass Disposition: ADMITTED INPATIENT Condition: Stable Admissions Decision to Admit Reason: Admit from ER (General) Decision to Admit/Date: Oct 11, 2021 Time/Decision to Admit Time: 14:50 Departure-Patient Inst. Referrals: [facility] (PCP) Primary Care Physician GRETCHEN RASHID (Family) Primary Care Physician Copy Copies To 1: TOR BENJAMIN JOSHUA T MD Oct 11, 2021 16:15
[2021-10-11] MEDS ORDERED: LACTATED RINGERS 1,000 ML IV ONE (16:30)
[2021-10-11] MEDS ORDERED: ONDANSETRON 4 MG/2 ML (SDV) Z0FRAN ONE (16:37)
[2021-10-11] MEDS ORDERED: ACETAMINOPHEN 650 MG SUPP (TYLENOL) PR ONE (16:45)
--- NOTE | 2021-10-11 16:45 | Tele-ICU Consult ---
Progress Note 70 y/o brought to ED for AMS. Question of CVA, but negative head CT and low liklihood so no TNK administered. Found to be in hypertensive crises with systolic in 220 range and cardene drip started Admitted to ICU for BP control and neuro checks Laboratory Tests 10/11/21 12:18 Labs Labs Laboratory Tests 10/11/21 12:18: White Blood Count 8.4, Red Blood Count 4.56, Hemoglobin 13.7, Hematocrit 41, Mean Corpuscular Volume 89, Mean Corpuscular Hemoglobin 30, Mean Corpuscular Hemoglobin Concent 34, Red Cell Distribution Width 12.0, Platelet Count 213, Mean Platelet Volume 11.3, Immature Granulocyte % (Auto) 0, Neutrophils (%) (Auto) 73, Lymphocytes (%) (Auto) 21, Monocytes (%) (Auto) 5, Eosinophils (%) (Auto) 0, Basophils (%) (Auto) 1, Neutrophils # (Auto) 6.1, Lymphocytes # (Auto) 1.8, Monocytes # (Auto) 0.4, Eosinophils # (Auto) 0.0, Basophils # (Auto) 0.0, Immature Granulocyte # (Auto) 0.0, Prothrombin Time 12.6, INR Comment 0.9, Activated Partial Thromboplast Time 24, D-Dimer 0.78H, Sodium Level 139, Potassium Level 3.4L, Chloride Level 99, Carbon Dioxide Level 23, Anion Gap 17H, Blood Urea Nitrogen 11, Creatinine 0.94, Estimat Glomerular Filtration Rate 65, BUN/Creatinine Ratio 12, Glucose Level 368H, Calcium Level 9.6, Corrected Calcium 9.4, Total Bilirubin 0.6, Aspartate Amino Transf (AST/SGOT) 18, Alanine Aminotransferase (ALT/SGPT) 25, Alkaline Phosphatase 122, Troponin I < 0.028, Total Protein 8.4H, Albumin 4.3, Thyroid Stimulating Hormone (TSH) 0.01L, Free Thyroxine 1.05, Serum Alcohol < 10 10/11/21 12:45: Urine Color YELLOW, Urine Clarity CLEAR, Urine pH 7.0, Urine Specific [place] 1.010L, Urine Protein 1+H, Urine Glucose (UA) 3+H, Urine Ketones TRACEH, Urine Nitrite NEGATIVE, Urine Bilirubin NEGATIVE, Urine Urobilinogen 0.2, Urine Leukocyte Esterase NEGATIVE, Urine RBC (Auto) 1+H, Urine RBC 5-10H, Urine WBC NONE, Urine Crystals NONE, Urine Bacteria NEGATIVE, Urine Casts NONE, Urine Mucus NEGATIVE, Urine Culture Indicated NO, Urine Opiates Screen NEGATIVE, Urine Oxycodone Screen NEGATIVE, Urine Methadone Screen NEGATIVE, Urine Propoxyphene Screen NEGATIVE, Urine Barbiturates Screen NEGATIVE, Ur Tricyclic Antidepressants Screen NEGATIVE, Urine Phencyclidine Screen NEGATIVE, Urine Amphetamines Screen NEGATIVE, Urine Methamphetamines Screen NEGATIVE, Urine Benzodiazepines Screen NEGATIVE, Urine Cocaine Screen NEGATIVE, Urine Cannabinoids Screen NEGATIVE 10/11/21 15:40: Influenza Type A (RT-PCR) Not Detected, Influenza Type B (RT-PCR) Not Detected, SARS-CoV-2 RNA (RT-PCR) Not Detected Focused Exam Height, Weight, BMI Height: '" Weight: lbs. oz. kg; 29.00 BMI Method: DANNIE HELLER MD Oct 11, 2021 16:45
[2021-10-11] MEDS ORDERED: cefTRIAXone 2,000 MG in NS (IVPB) 50 ML IV ONE (17:00)
[2021-10-11] MEDS ORDERED: fentaNYL INJ 100 MCG/2 ML AMP IVP ONE (17:15)
[2021-10-11 17:29] LABS: BAND NEUTROPHILS 2 %; BASOPHILS % (MANUAL) 1 %; LYMPHOCYTES % (MANUAL) 24 %; MONOCYTES % (MANUAL) 5 %; NEUTROPHILS % (MANUAL) 68 %; RBC MORPH NORMAL
[2021-10-11] MEDS ORDERED: METOCLOPRAMIDE INJ 10 MG/2 ML (REGLAN) IVP ONE (17:45)
[2021-10-11] MEDS ORDERED: PROPOFOL DRIP (ICU) 100 ML IV ONE ×2 (18:28→20:38)
[2021-10-11] MEDS: PROPOFOL DRIP (ICU) 100 ML IV SCH ×2 (18:32→20:40)
--- NOTE | 2021-10-11 18:42 | Anesthesia-Procedure Note ---
Procedures/Interventions Procedure Start/Stop/Diagnosis Date of Procedure: Oct 11, 2021 Start Time: 18:15 Referring Physician: Carmelina Preprocedural Diagnosis: altered mental status/ febrile Brief History Called by ER physician to perform lumbar puncture. Chart reviewed. On arrival, patient unresponsive to verbal stimulus, also not purposeful in any way. Not following commands, or withdrawing from pain. Nursing staff reports patient has been intermittently vomiting, and they have her in lateral position. Currently she is spontaneous breathing, with supplemental oxygen via NC. Family outside room, lumbar puncture explained and prior consent obtained from Dr. Cosme. Lumbar puncture performed without event. During procedure patient actively heaving at times, suctioned by nursing staff. EICU notified of my concern that patient doesn't seem to be able to protect airway reflexes and decision to intubate was made. Patient's POA on phone with family member, and situation explained. She wishes to proceed with intubation. Intubation completed with ease. Patient stable and report given to nursing staff. CSF specimen labeled and delivered to lab by [employer] Sorter, Steff. Stop Time: 18:30 Intubation Reason Intubation/Diagnosis: impaired airway reflexes/AMS/vomiting RSI: Yes 100% pre-Ox, [id number]: Yes Intubation Method: orotracheal (7.5) Videoscope used: Yes (glidescope 3) Grade View: 1 Medications: Propofol (70mg after intubation. ), Succinylcholine (60mg) Mask Ventilation: positive Positive End Tide CO2: Yes Breath Sounds after Intubation: bilateral-equal ETT Securred @ (cm): 21 Intubated with ease: Yes Intubation Complications: no complications Post Intubation Xray-done: Yes Lumbar Puncture Discussed Risk,Benefits: Yes (with family ) Patient Consents: Yes Position: Lying (left lateral), L4-5 Sterile Technique: Yes (betadine swabs x 3 ) Opening Pressure: 15 Fluid Color: clear Spinal Needle Used: Other (22 pencan 3.5in x 1 attempt ) Procedure Notes No response from patient with skin localization (Lido 1% PF 2mL) 2mL of CSF x 4 vials, sent to lab. BRIAN ABDI CRNA Oct 11, 2021 18:42
[2021-10-11 18:52] LABS: CSF GLUCOSE 165 MG/DL (50-80)
[2021-10-11 18:58] LABS: CSF TOTAL PROTEIN 58 MG/DL (15-40)
[2021-10-11 19:02] LABS: APPEARANCE,CSF CLEAR; COLOR,CSF COLORLESS
[2021-10-11 19:04] LABS: CSF TUBE NUMBER 4
[2021-10-11 19:07] LABS: RED BLOOD CELL,CSF 4.44 CELLS (0-0); WHITE BLOOD CELL,CSF 2.25 CELLS (0-5)
--- NOTE | 2021-10-11 19:08 | Diagnostic Imaging Report ---
EXAMINATION: Chest radiograph, portable AP view. DATE: 10/11/2021 6:56 PM INDICATION: 70-year-old female, tube and line placement. COMPARISON: October 11, 2021 at 1232 hours. FINDINGS: There is an endotracheal tube which is approximately 0.4 cm above the tracy. The nasogastric tube tip is at the level of the very proximal stomach. Consider advancement. Heart size and mediastinal contours are grossly unchanged. There is no identified pneumothorax. There is no large pleural effusion. There is no identified focal airspace consolidation. IMPRESSION: 1. Support lines and tubes as above. 2. No identified acute cardiopulmonary normality. Dictated by: Dictated on workstation # [id number]
[2021-10-11] MEDS ORDERED: fentaNYL DRIP PRE-MIX 250 ML IV ONE (19:52)
[2021-10-11] MEDS: fentaNYL DRIP PRE-MIX 250 ML IV SCH (19:58)
--- NOTE | 2021-10-11 20:57 | Tele-ICU Progress Note ---
Progress Note Restraints ordered for pulling of lines and tubes. Focused Exam Lactate Level 10/11/21 17:35: Lactic Acid Level 2.25*H 10/11/21 19:46: Lactic Acid Level 2.40*H Height, Weight, BMI Height: '" Weight: lbs. oz. kg; 34.09 BMI Method: Lactic Acid Level Laboratory Tests Test 10/11/21 17:35 10/11/21 19:46 Lactic Acid Level 2.25 MMOL/L (0.50-2.00) *H 2.40 MMOL/L (0.50-2.00) *H DESTINEY JIMENEZ MD Oct 11, 2021 20:57
[2021-10-11] MEDS ORDERED: ONDANSETRON 4 MG/2 ML (SDV) Z0FRAN IV PRN (21:15)
[2021-10-11] MEDS: LACTATED RINGERS 1,000 ML IV SCH (21:26)
[2021-10-11] MEDS: FAMOTIDINE 20MG/2ML IV (PEPCID) IVP SCH (21:26)
[2021-10-11 21:33] LABS: ABG BASE EXCESS 2.3 MMOL/L (-2.5-2.5); ABG PCO2 37 MMHG (35-45); ABG PH 7.46 (7.37-7.43); ABG PO2 243 MMHG (79-93); ABG TCO2 26.7 MMOL/L (21.0-31.0)
[2021-10-11 21:35] LABS: ALLENS TEST POSITIVE; INSPIRED O2 80; PATIENT TEMP 38.4; VENTILATOR YES
[2021-10-11] MEDS: inSUlin ASPART (NovoLOG) 1 UNIT/0.01 ML (CHARGE PER UNIT) SC SCH (23:45)
[2021-10-12] VITALS (30 sets, daily range): BP systolic 130–217; BP diastolic 67–108
[2021-10-12] MEDS ORDERED: ACETAMINOPHEN 325 MG TABLET PO ONE (00:30)
--- NOTE | 2021-10-12 00:32 | Tele-ICU Progress Note ---
Progress Note Tylenol ordered for Fever. Blood cultures done earlier. Focused Exam Lactate Level 10/11/21 17:35: Lactic Acid Level 2.25*H 10/11/21 19:46: Lactic Acid Level 2.40*H 10/11/21 21:49: Lactic Acid Level 1.89 Height, Weight, BMI Height: '" Weight: lbs. oz. kg; 34.09 BMI Method: Lactic Acid Level Laboratory Tests Test 10/11/21 21:49 Lactic Acid Level 1.89 MMOL/L (0.50-2.00) DESTINEY JIMENEZ MD Oct 12, 2021 00:32
[2021-10-12] MEDS: PROPOFOL DRIP (ICU) 100 ML IV SCH ×4 (01:03→20:37)
[2021-10-12] MEDS: LACTATED RINGERS 1,000 ML IV SCH ×4 (03:57→20:37)
[2021-10-12] MEDS: inSUlin ASPART (NovoLOG) 1 UNIT/0.01 ML (CHARGE PER UNIT) SC SCH ×4 (05:42→23:30)
[2021-10-12 06:07] LABS: ABG BASE EXCESS 3.3 MMOL/L (-2.5-2.5); ABG OXYGEN SATURATION 98 % (94-100); ABG PCO2 39 MMHG (35-45); ABG PH 7.45 (7.37-7.43); ABG PO2 85 MMHG (79-93); ABG TCO2 28.3 MMOL/L (21.0-31.0)
[2021-10-12 06:09] LABS: ALLENS TEST YES-POS; PATIENT TEMP 37; VENTILATOR YES
[2021-10-12 06:10] LABS: INSPIRED O2 30%
[2021-10-12 06:19] LABS: BASOPHILS # (AUTO) 0.1 10^3/uL (0.0-0.1); BASOPHILS % (AUTO) 0 % (0-10); EOSINOPHILS % (AUTO) 0 % (0-10); HEMATOCRIT 39 % (35-52); HEMOGLOBIN 13.4 g/dL (11.5-16.0); LYMPHOCYTES # (AUTO) 2.5 10^3/uL (1.0-4.0); LYMPHOCYTES % (AUTO) 21 % (12-44); MEAN CORPUSCULAR HEMOGLOBIN 31 pg (25-34); MEAN CORPUSCULAR HGB CONC 34 g/dL (32-36); MEAN CORPUSCULAR VOLUME 90 fL (80-99); MEAN PLATELET VOLUME 11.6 fL (9.0-12.2); MONOCYTES # (AUTO) 1.4 10^3/uL (0.0-1.0); MONOCYTES % (AUTO) 12 % (0-12); NEUTROPHILS # (AUTO) 8.1 10^3/uL (1.8-7.8); NEUTROPHILS % (AUTO) 67 % (42-75); PLATELET COUNT 206 10^3/uL (130-400)
[2021-10-12 06:28] LABS: PHOSPHORUS 3.4 MG/DL (2.3-4.7)
[2021-10-12 06:44] LABS: CREATININE SERUM 1.11 MG/DL (0.60-1.30); MAGNESIUM 1.8 MG/DL (1.6-2.4); POTASSIUM 3.5 MMOL/L (3.6-5.0)
[2021-10-12] MEDS: MAGNESIUM 1 GM/100 ML IVPB 100 ML IV SCH (06:46)
[2021-10-12] MEDS: KCL 20 MEQ TAB (K-DUR) PO SCH (06:46)
[2021-10-12] MEDS: POTASSIUM CL 10MEQ/50ML IVPB 50 ML IV SCH ×3 (06:46→08:07)
[2021-10-12] MEDS: FAMOTIDINE 20MG/2ML IV (PEPCID) IVP SCH ×2 (08:07→20:37)
[2021-10-12] MEDS ORDERED: SUCCINYLCHOLINE INJ 100 MG/5 ML SYR/VIAL INJ ONE (09:27)
--- NOTE | 2021-10-12 09:34 | Tele-ICU Progress Note ---
Subjective Date Seen by a Provider: Oct 12, 2021 Time Seen by a Provider: 09:33 Subjective/Events-last exam (Tele-ICU Physician , Progress Note ) Available chart/ vitals / labs / Images reviewed Video assessment done using teleICU camera, rest of exam as per RN Discussed with RN , EXAM PER RN Events overnight : Afebrile FiO2 - 25 I/O = Drips: Pressors: , hemodynamically stable Sedation gtt: propofol fentananyl ( RASS -2 ) VENT SETTINGS and ABG reviewed candidate for SBT today REVIEWED Cardiovascular Stability / Sedation Score / FI02/PEEP / ABG / CXR Consultants: Hospital course: (10/11) 70F admitted for HTN urgency with encephalopathy. CVA workup negative. S/P Lumbar puncture and was Intubated to protect her airway at around (18:30 A/P Acute resp failure - intubated for airway protection - will decrease sedation , hope to extubate if mental status appropriate [facility] 10/11 neg -suspected HTN crisis - s/p LP HTN crisis - BP controlled ( of cardene gtt - follow DM _ISS Lines : periph (Central Line Necessity Reviewed) Roberto: + OG: Nutrition: npo- START TF TODAY if not extubated Analgesia: Anxiety/ delirium VTE Prophylaxis: SCD , consider lovenox if not extubated Stress Ulcer Prophylaxis: h2bl Plans in collaboration with bedside consultants and IM MDs. Discussed with RN to reach out if any questions or concerns A total of minutes of critical care time was devoted to this patient today, required to treat and/or prevent further deterioration of critical care condition ( as above) . Sepsis Event Evaluation Height, Weight, BMI Height: '" Weight: lbs. oz. kg; 34.09 BMI Method: Focused Exam Lactate Level 10/11/21 17:35: Lactic Acid Level 2.25*H 10/11/21 19:46: Lactic Acid Level 2.40*H 10/11/21 21:49: Lactic Acid Level 1.89 Exam Exam Patient acknowledged, consented, and participated in this virtual visit which was conducted using real time audio/video Vital Signs Date Time Temp Pulse Resp B/P (MAP) Pulse Ox O2 Delivery O2 Flow Rate FiO2 10/12/21 09:00 91 20 142/73 (96) 99 Mechanical Ventilator 30.00 10/12/21 08:07 97 Mechanical Ventilator 25 10/12/21 08:00 37.3 10/12/21 08:00 90 20 130/69 (89) 100 Mechanical Ventilator 30.00 10/12/21 07:58 91 10/12/21 07:28 93 20 97 30 10/12/21 07:00 90 19 151/73 (99) 100 Mechanical Ventilator 30.00 10/12/21 06:00 90 20 131/68 (89) 100 Mechanical Ventilator 30.00 10/12/21 05:41 92 147/81 10/12/21 05:00 90 20 139/79 (99) 100 Mechanical Ventilator 30.00 10/12/21 04:30 Mechanical Ventilator 30.00 10/12/21 04:00 92 19 135/75 (95) 100 Mechanical Ventilator 40.00 10/12/21 04:00 Mechanical Ventilator 30 10/12/21 03:48 30 10/12/21 03:41 92 20 100 40 10/12/21 03:17 37.2 Mechanical Ventilator 40.00 10/12/21 03:00 98 27 141/76 (97) 100 Mechanical Ventilator 40.00 10/12/21 02:00 96 20 135/76 (95) 100 Mechanical Ventilator 40.00 10/12/21 01:35 37.2 10/12/21 01:03 38.3 10/12/21 01:03 98 155/81 10/12/21 01:00 101 16 147/96 (113) 100 Mechanical Ventilator 40.00 10/12/21 01:00 102 10/12/21 00:10 38.1 Mechanical Ventilator 40.00 10/12/21 00:09 Mechanical Ventilator 40 10/12/21 00:00 98 20 141/74 (96) 99 Mechanical Ventilator 40.00 10/11/21 23:14 Mechanical Ventilator 40.00 10/11/21 23:00 98 19 155/81 (105) 100 Mechanical Ventilator 50.00 10/11/21 22:58 98 20 100 50 10/11/21 22:26 37.6 Mechanical Ventilator 50.00 10/11/21 22:00 98 19 175/89 (117) 100 Mechanical Ventilator 80.00 10/11/21 21:15 161/83 10/11/21 21:14 161/83 10/11/21 21:09 38.4 10/11/21 21:00 101 20 161/83 (109) 100 Mechanical Ventilator 80.00 10/11/21 20:40 120 166/122 10/11/21 20:00 Mechanical Ventilator 80 10/11/21 20:00 38.8 10/11/21 20:00 112 22 188/96 (126) 100 Mechanical Ventilator 80.00 10/11/21 19:02 120 22 100 80 10/11/21 19:00 118 10/11/21 19:00 Mechanical Ventilator 80.00 10/11/21 19:00 115 20 188/101 (130) 100 Mechanical Ventilator 80.00 10/11/21 18:32 126 119/43 10/11/21 18:27 126 22 100 80 10/11/21 18:15 37.7 10/11/21 18:15 37.7 10/11/21 18:00 122 16 131/61 (84) 96 Room Air 2.00 10/11/21 17:45 38.7 10/11/21 17:30 38.6 10/11/21 17:22 129 26 120/63 (82) 97 Room Air 2.00 10/11/21 17:12 127 10/11/21 16:59 Room Air 10/11/21 16:45 122 17 215/96 94 Nasal Cannula 2.00 10/11/21 16:00 215/96 10/11/21 12:09 36.5 105 16 231/107 (148) 94 Nasal Cannula 2.00 I & O 10/12/21 07:00 Intake Total 1300 ml Output Total 2250 ml Balance -950 ml Height & Weight Height: '" Weight: lbs. oz. kg; 34.09 BMI Method: General Appearance: No Apparent Distress Capillary Refill: Less Than 3 Seconds Gastrointestinal: non tender, soft; No distended Results Lab Laboratory Tests 10/11/21 12:18 10/12/21 05:28 Assessment/Plan Assessment/Plan DESIRAE ROSEN MD Oct 12, 2021 09:34
[2021-10-12] MEDS ORDERED: LISI1TAB48 PO (10:33)
[2021-10-12] MEDS ORDERED: METF-399 PO (10:33)
[2021-10-12] MEDS: fentaNYL DRIP PRE-MIX 250 ML IV SCH (12:17)
--- NOTE | 2021-10-12 15:17 | History & Physical ---
HPI History of Present Illness: 70 yo F that presented to ER with confusion and altered mental status. Unable to get HPI from patient as she is intubated. Spoke with ESTELLE of patient and he said that she was complaining of dizziness and shortness of breath around 4PM and then he said that she needed to go to the ER. She was able to get to the car but was not feeling well and he called EMS. He denied any complaints from her about chest or abdominal pain. Spoke with Viral of patient and she states that the patient has been taking her medications but that she also goes to an herbal store and takes alot of supplements. Source: family, RN/MD Exam Limitations: clinical condition Date seen by provider: Oct 12, 2021 Time Seen by Provider: 11:30 Attending Physician Last Jacobs MD [facility] [place] Consult Date of Admission Oct 11, 2021 at 15:11 Home Medications Home Medications Reviewed patient Home Medication Reconciliation performed by pharmacy medication reconciliations hydraulic controls technician and/or nursing. Patients Allergies have been reviewed. Allergies Coded Allergies: No Known Drug Allergies (Verified , 05/02/07) [id number] Hx Patient Social History Smoking Status: Unknown if Ever Smoked Alcohol Use?: Unable to obtain Have you traveled recently?: No Past Medical History HTN NIDDM Review of Systems ([facility]) Constitutional: other (Unable to asscess due to intubation and sedation) Reviewed Test Results Reviewed Test Results Lab Laboratory Tests Test 10/11/21 15:40 10/11/21 17:35 10/11/21 18:15 10/11/21 18:37 Range/Units Influenza Type A (RT-PCR) Not Detected Not Detecte Influenza Type B (RT-PCR) Not Detected Not Detecte SARS-CoV-2 RNA (RT-PCR) Not Detected Not Detecte Lactic Acid Level 2.25 *H 0.50-2.00 MMOL/L CSF Tube Number 4 CSF Appearance CLEAR CSF Color COLORLESS CSF WBC 2.25 0-5 CELLS CSF RBC 4.44 H 0-0 CELLS CSF Lymphocytes % CSF Mononuclear WBCs % CSF Polynuclear WBCs % CSF Glucose 165 H 50-80 MG/DL CSF Total Protein 58 H 15-40 MG/DL Glucometer 283 H 70-110 MG/DL Test 10/11/21 19:46 10/11/21 21:24 10/11/21 21:49 10/11/21 23:40 Range/Units Lactic Acid Level 2.40 *H 1.89 0.50-2.00 MMOL/L Blood Gas Puncture Site LEFT RADIAL Blood Gas Patient Temperature 38.4 Arterial Blood pH 7.46 H 7.37-7.43 Arterial Blood Partial Pressure CO2 37 35-45 MMHG Arterial Blood Partial Pressure O2 243 H 79-93 MMHG Arterial Blood HCO3 26 23-27 MMOL/L Arterial Blood Total CO2 26.7 21.0-31.0 MMOL/L Arterial Blood Oxygen Saturation 94-100 % Arterial Blood Base Excess 2.3 -2.5-2.5 MMOL/L Karl Test POSITIVE Blood Gas Ventilator Setting YES Blood Gas Inspired Oxygen 80 Glucometer 345 H 70-110 MG/DL Test 10/12/21 05:28 10/12/21 05:35 10/12/21 05:50 10/12/21 06:00 Range/Units White Blood Count 12.0 H 4.3-11.0 10^3/uL Red Blood Count 4.40 3.80-5.11 10^6/uL Hemoglobin 13.4 11.5-16.0 g/dL Hematocrit 39 35-52 % Mean Corpuscular Volume 90 80-99 fL Mean Corpuscular Hemoglobin 31 25-34 pg Mean Corpuscular Hemoglobin Concent 34 32-36 g/dL Red Cell Distribution Width 12.5 10.0-14.5 % Platelet Count 206 130-400 10^3/uL Mean Platelet Volume 11.6 9.0-12.2 fL Immature Granulocyte % (Auto) 0 % Neutrophils (%) (Auto) 67 42-75 % Lymphocytes (%) (Auto) 21 12-44 % Monocytes (%) (Auto) 12 0-12 % Eosinophils (%) (Auto) 0 0-10 % Basophils (%) (Auto) 0 0-10 % Neutrophils # (Auto) 8.1 H 1.8-7.8 10^3/uL Lymphocytes # (Auto) 2.5 1.0-4.0 10^3/uL Monocytes # (Auto) 1.4 H 0.0-1.0 10^3/uL Eosinophils # (Auto) 0.0 0.0-0.3 10^3/uL Basophils # (Auto) 0.1 0.0-0.1 10^3/uL Immature Granulocyte # (Auto) 0.0 0.0-0.1 10^3/uL Sodium Level 142 135-145 MMOL/L Potassium Level 3.5 L 3.6-5.0 MMOL/L Chloride Level 100 98-107 MMOL/L Carbon Dioxide Level 23 21-32 MMOL/L Anion Gap 19 H 5-14 MMOL/L Blood Urea Nitrogen 16 7-18 MG/DL Creatinine 1.11 0.60-1.30 MG/DL Estimat Glomerular Filtration Rate 53 BUN/Creatinine Ratio 14 Glucose Level 241 H 70-105 MG/DL Calcium Level 9.0 8.5-10.1 MG/DL Magnesium Level 1.8 1.6-2.4 MG/DL Glucometer 254 H 70-110 MG/DL Phosphorus Level 3.4 2.3-4.7 MG/DL Triglycerides Level 208 H <150 MG/DL Cholesterol Level 286 H < 200 MG/DL LDL Cholesterol Direct 196 H 1-129 MG/DL VLDL Cholesterol 42 H 5-40 MG/DL HDL Cholesterol 60 40-60 MG/DL Blood Gas Puncture Site RT RADIAL Blood Gas Patient Temperature 37 Arterial Blood pH 7.45 H 7.37-7.43 Arterial Blood Partial Pressure CO2 39 35-45 MMHG Arterial Blood Partial Pressure O2 85 79-93 MMHG Arterial Blood HCO3 27 23-27 MMOL/L Arterial Blood Total CO2 28.3 21.0-31.0 MMOL/L Arterial Blood Oxygen Saturation 98 94-100 % Arterial Blood Base Excess 3.3 H -2.5-2.5 MMOL/L Karl Test YES-POS Blood Gas Ventilator Setting YES Blood Gas Inspired Oxygen 30% Test 10/12/21 11:38 Range/Units Glucometer 199 H 70-110 MG/DL Physical Exam-(CHC) Physical Exam Vital Signs VS - Last 72 Hours, by Label 10/11/21 10/11/21 10/11/21 10/11/21 12:09 16:00 16:45 16:59 Temp 36.5 Pulse 105 122 Resp 16 17 B/P (MAP) 231/107 (148) 215/96 215/96 Pulse Ox 94 94 O2 Delivery Nasal Cannula Nasal Cannula Room Air O2 Flow Rate 2.00 2.00 10/11/21 10/11/21 10/11/21 10/11/21 17:12 17:22 17:30 17:45 Temp 38.6 38.7 Pulse 127 129 Resp 26 B/P (MAP) 120/63 (82) Pulse Ox 97 O2 Delivery Room Air O2 Flow Rate 2.00 10/11/21 10/11/21 10/11/21 10/11/21 18:00 18:15 18:15 18:27 Temp 37.7 37.7 Pulse 122 126 Resp B/P (MAP) 131/61 (84) Pulse Ox 96 100 O2 Delivery Room Air O2 Flow Rate 2.00 FiO2 80 10/11/21 10/11/21 10/11/21 10/11/21 18:32 19:00 19:00 19:00 Pulse 126 115 118 Resp 20 B/P (MAP) 119/43 188/101 (130) Pulse Ox 100 O2 Delivery Mechanical Ventilator Mechanical Ventilator O2 Flow Rate 80.00 80.00 10/11/21 10/11/21 10/11/21 10/11/21 19:02 20:00 20:00 20:00 Temp 38.8 Pulse 120 112 Resp B/P (MAP) 188/96 (126) Pulse Ox 100 100 O2 Delivery Mechanical Ventilator Mechanical Ventilator O2 Flow Rate 80.00 FiO2 80 80 10/11/21 10/11/21 10/11/21 10/11/21 20:40 21:00 21:09 21:14 Temp 38.4 Pulse 120 101 Resp 20 B/P (MAP) 166/122 161/83 (109) 161/83 Pulse Ox 100 O2 Delivery Mechanical Ventilator O2 Flow Rate 80.00 10/11/21 10/11/21 10/11/21 10/11/21 21:15 22:00 22:26 22:58 Temp 37.6 Pulse 98 98 Resp 20 B/P (MAP) 161/83 175/89 (117) Pulse Ox 100 100 O2 Delivery Mechanical Ventilator Mechanical Ventilator O2 Flow Rate 80.00 50.00 FiO2 50 10/11/21 10/11/21 10/12/21 10/12/21 23:00 23:14 00:00 00:09 Pulse 98 98 Resp 19 20 B/P (MAP) 155/81 (105) 141/74 (96) Pulse Ox 100 99 O2 Delivery Mechanical Ventilator Mechanical Ventilator Mechanical Ventilator Mechanical Ventilator O2 Flow Rate 50.00 40.00 40.00 FiO2 40 10/12/21 10/12/21 10/12/21 10/12/21 00:10 01:00 01:00 01:03 Temp 38.1 Pulse 102 101 98 Resp 16 B/P (MAP) 147/96 (113) 155/81 Pulse Ox 100 O2 Delivery Mechanical Ventilator Mechanical Ventilator O2 Flow Rate 40.00 40.00 10/12/21 10/12/21 10/12/21 10/12/21 01:03 01:35 02:00 03:00 Temp 38.3 37.2 Pulse 96 98 Resp 20 27 B/P (MAP) 135/76 (95) 141/76 (97) Pulse Ox 100 100 O2 Delivery Mechanical Ventilator Mechanical Ventilator O2 Flow Rate 40.00 40.00 10/12/21 10/12/21 10/12/21 10/12/21 03:17 03:41 03:48 04:00 Temp 37.2 Pulse 92 Resp 20 B/P (MAP) Pulse Ox 100 O2 Delivery Mechanical Ventilator Mechanical Ventilator O2 Flow Rate 40.00 FiO2 40 30 30 10/12/21 10/12/21 10/12/21 10/12/21 04:00 04:30 05:00 05:41 Pulse 92 90 92 Resp 19 20 B/P (MAP) 135/75 (95) 139/79 (99) 147/81 Pulse Ox 100 100 O2 Delivery Mechanical Ventilator Mechanical Ventilator Mechanical Ventilator O2 Flow Rate 40.00 30.00 30.00 10/12/21 10/12/21 10/12/21 10/12/21 06:00 07:00 07:28 07:58 Pulse 90 90 93 91 Resp 20 19 20 B/P (MAP) 131/68 (89) 151/73 (99) Pulse Ox 100 100 97 O2 Delivery Mechanical Ventilator Mechanical Ventilator O2 Flow Rate 30.00 30.00 FiO2 30 10/12/21 10/12/21 10/12/21 10/12/21 08:00 08:00 08:07 09:00 Temp 37.3 Pulse 90 91 Resp 20 20 B/P (MAP) 130/69 (89) 142/73 (96) Pulse Ox 100 97 99 O2 Delivery Mechanical Ventilator Mechanical Ventilator Mechanical Ventilator O2 Flow Rate 30.00 30.00 FiO2 25 10/12/21 10/12/21 10/12/21 10/12/21 10:00 10:50 10:52 10:57 Pulse 90 91 90 Resp 19 20 B/P (MAP) 161/80 (107) 161/80 Pulse Ox 99 99 O2 Delivery Mechanical Ventilator Mechanical Ventilator O2 Flow Rate 30.00 21.00 FiO2 10/12/21 10/12/21 10/12/21 10/12/21 11:00 11:13 12:00 12:00 Temp 37.7 Pulse 90 91 Resp 19 19 B/P (MAP) 169/79 (109) 177/83 (114) Pulse Ox 96 97 95 O2 Delivery Mechanical Ventilator Mechanical Ventilator Mechanical Ventilator O2 Flow Rate 21.00 21.00 FiO2 10/12/21 10/12/21 10/12/21 10/12/21 12:56 13:00 14:00 14:15 Pulse 93 92 86 105 Resp 28 20 20 B/P (MAP) 172/81 (111) 180/81 (114) Pulse Ox 95 95 95 O2 Delivery Mechanical Ventilator Mechanical Ventilator O2 Flow Rate 21.00 21.00 FiO2 21 10/12/21 10/12/21 10/12/21 10/12/21 15:00 15:20 16:00 16:20 Temp 37.8 Pulse 87 90 Resp 25 16 B/P (MAP) 206/90 (128) 170/83 (112) Pulse Ox 94 94 95 O2 Delivery Mechanical Ventilator Mechanical Ventilator Mechanical Ventilator O2 Flow Rate 21.00 21.00 FiO2 10/12/21 10/12/21 10/12/21 10/12/21 17:00 17:23 18:00 18:20 Temp 38.3 38.2 Pulse 112 104 Resp 26 19 B/P (MAP) 193/88 (123) 179/82 (114) Pulse Ox 93 93 O2 Delivery Mechanical Ventilator Mechanical Ventilator O2 Flow Rate 21.00 21.00 10/12/21 10/12/21 10/12/21 18:34 20:11 20:37 Temp 36.4 Pulse 104 104 Resp 25 B/P (MAP) 177/95 Pulse Ox 94 FiO2 21 Capillary Refill : Less Than 3 Seconds General Appearance: other (Patient intubated and sedated) Respiratory: lungs clear, normal breath sounds, no respiratory distress Cardiovascular: normal peripheral pulses, regular rate, rhythm, no murmur Gastrointestinal: normal bowel sounds, soft Extremities: no pedal edema, no calf tenderness, normal capillary refill Skin: normal color, warm/dry Assessment/Plan Assessment/Plan Admission Status: Inpatient Order (span 2 midnights) Reason for Inpatient Admission: Patient intubated and requiring critical care (1) Altered mental status Status: Acute Assessment & Plan: - Patient had 1 episode of fever, no source of infection found, Normal LP, CT normal: no acute findings, consider MRI if patient does not start to wake up when blood pressure is controlled Qualifiers: Qualified Codes: R41.82 - Altered mental status, unspecified (2) Hypertensive emergency Status: Acute Assessment & Plan: - Cardene drip, permissive HTN and will titrate blood pressure down slowly (3) Fever Status: Acute Assessment & Plan: - No source of infection Qualifiers: Qualified Codes: R50.9 - Fever, unspecified (4) Lactic acidosis Status: Acute (5) Low TSH level Status: Acute Assessment & Plan: - T3 pending, normal T4 (6) Hypokalemia Status: Acute Assessment & Plan: - ICU protocol, replace and repeat CMP (7) DVT prophylaxis Status: Acute Assessment & Plan: - Lovenox (8) Discharge planning issues Assessment & Plan: 10/12: Spoke with QUINN Das today at 1400, she was discussing the possiblility of transfer to hospital with neurology. Discussed that at this point they would not likely be doing anything different that we can not do here, she was agreeable to work on getting patient extubated and continuing to titrate blood pressure. Will update QUINN in the AM. ERNEE EAST MD Oct 12, 2021 15:17
[2021-10-12] MEDS ORDERED: lisINopril 40 MG (PRINIVIL) TABLET PO ONE (17:00)
[2021-10-12] MEDS ORDERED: lisINopril 20 MG (PRINIVIL) TABLET PO NR (17:00)
[2021-10-12] MEDS ORDERED: ACETAMINOPHEN 325 MG TABLET PO NR (17:15)
[2021-10-12] MEDS ORDERED: ACETAMINOPHEN 325 MG TABLET ONE (17:18)
[2021-10-13] VITALS (30 sets, daily range): BP systolic 118–181; BP diastolic 64–95
[2021-10-13] MEDS: LACTATED RINGERS 1,000 ML IV SCH ×3 (01:54→17:14)
[2021-10-13 04:18] LABS: ABG BASE EXCESS 1.9 MMOL/L (-2.5-2.5); ABG OXYGEN SATURATION 92 % (94-100); ABG PCO2 41 MMHG (35-45); ABG PH 7.42 (7.37-7.43); ABG PO2 60 MMHG (79-93); ABG TCO2 27.3 MMOL/L (21.0-31.0)
[2021-10-13 04:19] LABS: ALLENS TEST POSITIVE; INSPIRED O2 21; PATIENT TEMP 36.9; VENTILATOR YES
[2021-10-13 04:59] LABS: BASOPHILS % (AUTO) 0 % (0-10); EOSINOPHILS % (AUTO) 0 % (0-10); HEMATOCRIT 35 % (35-52); HEMOGLOBIN 11.7 g/dL (11.5-16.0); LYMPHOCYTES % (AUTO) 26 % (12-44); MEAN CORPUSCULAR HEMOGLOBIN 30 pg (25-34); MEAN CORPUSCULAR HGB CONC 33 g/dL (32-36); MEAN CORPUSCULAR VOLUME 90 fL (80-99); MEAN PLATELET VOLUME 11.3 fL (9.0-12.2); MONOCYTES # (AUTO) 1.1 10^3/uL (0.0-1.0); MONOCYTES % (AUTO) 9 % (0-12); NEUTROPHILS # (AUTO) 7.5 10^3/uL (1.8-7.8); NEUTROPHILS % (AUTO) 64 % (42-75); PLATELET COUNT 163 10^3/uL (130-400); WHITE BLOOD COUNT 11.6 10^3/uL (4.3-11.0)
[2021-10-13 05:02] LABS: POTASSIUM 3.1 MMOL/L (3.6-5.0)
[2021-10-13 05:03] LABS: CALCIUM 8.7 MG/DL (8.5-10.1)
[2021-10-13 05:08] LABS: CREATININE SERUM 0.86 MG/DL (0.60-1.30); PHOSPHORUS 3.9 MG/DL (2.3-4.7)
[2021-10-13 05:10] LABS: MAGNESIUM 1.5 MG/DL (1.6-2.4)
[2021-10-13] MEDS: POTASSIUM CL 10MEQ/50ML IVPB 50 ML IV SCH ×5 (05:30→07:52)
[2021-10-13] MEDS: MAGNESIUM 1 GM/100 ML IVPB 100 ML IV SCH ×3 (05:30→05:41)
[2021-10-13] MEDS: KCL 20 MEQ TAB (K-DUR) PO SCH (05:30)
[2021-10-13] MEDS: inSUlin ASPART (NovoLOG) 1 UNIT/0.01 ML (CHARGE PER UNIT) SC SCH ×3 (05:40→18:35)
[2021-10-13] MEDS: niCARdipine IV 50 MG in NS (IVPB) 230 ML IV SCH (05:54)
[2021-10-13] MEDS: PROPOFOL DRIP (ICU) 100 ML IV SCH (06:49)
[2021-10-13] MEDS: lisINopril 20 MG (PRINIVIL) TABLET PO SCH (07:52)
[2021-10-13] MEDS: FAMOTIDINE 20MG/2ML IV (PEPCID) IVP SCH ×2 (07:52→20:57)
[2021-10-13] MEDS ORDERED: lisINopril 40 MG (PRINIVIL) TABLET PO SCH (09:00)
[2021-10-13] MEDS ORDERED: ACETAMINOPHEN 500 MG TAB (TYLENOL) PO ONE (09:45)
[2021-10-13] MEDS: DexMEDEtomidine 250 ML DRIP 250 ML IV SCH (10:15)
--- NOTE | 2021-10-13 10:22 | Tele-ICU Progress Note ---
Subjective Date Seen by a Provider: Oct 13, 2021 Time Seen by a Provider: 10:21 Subjective/Events-last exam (Tele-ICU Physician , Progress Note ) Available chart/ vitals / labs / Images reviewed Video assessment done using teleICU camera, rest of exam as per RN Discussed with RN , EXAM PER RN Events overnight : re sedated again Afebrile FiO2 - 25 I/O = Drips: Pressors: , hemodynamically stable Sedation gtt: propofol fentananyl ( RASS -2 ) VENT SETTINGS and ABG reviewed candidate for SBT today REVIEWED Cardiovascular Stability / Sedation Score / FI02/PEEP / ABG / CXR Consultants: Hospital course: (10/11) 70F admitted for HTN urgency with encephalopathy. CVA workup negative. S/P Lumbar puncture and was Intubated to protect her airway at around (18:30 A/P Acute resp failure - intubated for airway protection - will decrease sedation again , hope to extubate today if mental status appropriate [facility] - [place] 10/11 neg -suspected HTN crisis - s/p LP HTN crisis - BP controlled ( of cardene gtt - started on home meds - follow DM _ISS Lines : periph (Central Line Necessity Reviewed) Roberto: + OG: Nutrition: npo- START TF TODAY if not extubated Analgesia: Anxiety/ delirium VTE Prophylaxis: SCD , consider lovenox if not extubated Stress Ulcer Prophylaxis: h2bl Plans in collaboration with bedside consultants and IM MDs. Discussed with RN to reach out if any questions or concerns A total of minutes of critical care time was devoted to this patient today, required to treat and/or prevent further deterioration of critical care co ndition ( as above) . Sepsis Event Evaluation Height, Weight, BMI Height: '" Weight: lbs. oz. kg; 34.09 BMI Method: Focused Exam Lactate Level 10/11/21 17:35: Lactic Acid Level 2.25*H 10/11/21 19:46: Lactic Acid Level 2.40*H 10/11/21 21:49: Lactic Acid Level 1.89 Exam Exam Patient acknowledged, consented, and participated in this virtual visit which was conducted using real time audio/video Vital Signs Date Time Temp Pulse Resp B/P (MAP) Pulse Ox O2 Delivery O2 Flow Rate FiO2 10/13/21 10:15 71 141/70 10/13/21 10:00 64 16 118/65 (82) 96 Mechanical Ventilator 21.00 10/13/21 09:00 71 15 141/70 (93) 97 Mechanical Ventilator 21.00 10/13/21 08:00 72 16 134/66 (88) 95 Mechanical Ventilator 21.00 10/13/21 08:00 36.7 10/13/21 07:36 96 Mechanical Ventilator 21 10/13/21 07:21 76 16 94 21 10/13/21 07:00 74 10/13/21 07:00 79 15 151/75 (100) 95 Mechanical Ventilator 21.00 10/13/21 06:49 76 148/80 10/13/21 06:00 76 15 148/80 (102) 94 Mechanical Ventilator 21.00 10/13/21 05:54 132/70 10/13/21 05:00 77 15 147/70 (95) 93 Mechanical Ventilator 21.00 10/13/21 04:06 96 Mechanical Ventilator 21 10/13/21 04:00 71 16 161/77 (105) 99 Mechanical Ventilator 21.00 10/13/21 03:00 71 15 136/66 (89) 99 Mechanical Ventilator 21.00 10/13/21 03:00 36.9 Mechanical Ventilator 21.00 10/13/21 02:08 76 16 96 21 10/13/21 02:00 75 15 127/67 (87) 96 Mechanical Ventilator 21.00 10/13/21 01:19 78 10/13/21 01:00 80 15 136/69 (91) 98 Mechanical Ventilator 21.00 10/13/21 00:00 82 15 134/69 (90) 89 Mechanical Ventilator 21.00 10/12/21 23:52 98 Mechanical Ventilator 21 10/12/21 23:26 36.9 Mechanical Ventilator 21.00 10/12/21 23:00 85 15 180/79 (112) 95 Mechanical Ventilator 21.00 10/12/21 22:00 84 15 169/77 (107) 95 Mechanical Ventilator 21.00 10/12/21 21:33 87 22 95 21 10/12/21 21:00 90 22 154/69 (97) 94 Mechanical Ventilator 21.00 10/12/21 20:37 104 177/95 10/12/21 20:11 36.4 10/12/21 20:00 92 16 163/72 (102) 94 Mechanical Ventilator 21.00 10/12/21 20:00 96 Mechanical Ventilator 21 10/12/21 19:00 37.7 Mechanical Ventilator 21.00 10/12/21 19:00 101 10/12/21 19:00 101 25 163/72 (102) 95 Mechanical Ventilator 21.00 10/12/21 18:34 104 25 94 21 10/12/21 18:20 38.2 10/12/21 18:00 104 19 179/82 (114) 93 Mechanical Ventilator 21.00 10/12/21 17:23 38.3 10/12/21 17:00 112 26 193/88 (123) 93 Mechanical Ventilator 21.00 10/12/21 16:20 95 Mechanical Ventilator 21 10/12/21 16:00 90 16 170/83 (112) 94 Mechanical Ventilator 21.00 10/12/21 15:20 37.8 10/12/21 15:00 87 25 206/90 (128) 94 Mechanical Ventilator 21.00 10/12/21 14:15 105 20 95 21 10/12/21 14:00 86 20 180/81 (114) 95 Mechanical Ventilator 21.00 10/12/21 13:00 92 28 172/81 (111) 95 Mechanical Ventilator 21.00 10/12/21 12:56 93 10/12/21 12:00 91 19 177/83 (114) 95 Mechanical Ventilator 21.00 10/12/21 12:00 37.7 10/12/21 11:13 97 Mechanical Ventilator 25 10/12/21 11:00 90 19 169/79 (109) 96 Mechanical Ventilator 21.00 10/12/21 10:57 Mechanical Ventilator 21.00 10/12/21 10:52 90 161/80 10/12/21 10:50 91 20 99 25 I & O 10/13/21 07:00 Intake Total 2300 ml Output Total 1025 ml Balance 1275 ml Height & Weight Height: '" Weight: lbs. oz. kg; 34.09 BMI Method: General Appearance: No Apparent Distress Capillary Refill: Less Than 3 Seconds Gastrointestinal: normal bowel sounds, soft Results Lab Laboratory Tests 10/11/21 12:18 10/12/21 05:28 10/13/21 04:45 Assessment/Plan Assessment/Plan ` DESIRAE SHETH MD Oct 13, 2021 10:22
[2021-10-13] MEDS: LABETALOL HCL 20 MG/4 ML VIAL IV PRN ×2 (12:06→16:52)
[2021-10-13] MEDS: fentaNYL DRIP PRE-MIX 250 ML IV SCH (18:35)
[2021-10-13 20:52] LABS: ABG BASE EXCESS 2.5 MMOL/L (-2.5-2.5); ABG OXYGEN SATURATION 96 % (94-100); ABG PCO2 42 MMHG (35-45); ABG PH 7.42 (7.37-7.43); ABG PO2 69 MMHG (79-93); ABG TCO2 28.2 MMOL/L (21.0-31.0)
[2021-10-13 20:53] LABS: INSPIRED O2 21%; PATIENT TEMP 36; VENTILATOR YES
[2021-10-13] MEDS: MICONAZOLE 2% POWDER (DESENEX AF) 90 GM TOP SCH (21:20)
--- NOTE | 2021-10-13 23:13 | Progress Note ---
Subjective Subjective/Events-last exam Patient intubated and sedated. No new ON events per nursing Review of Systems Unable to access due to intubation and sedation Focused Exam Lactate Level 10/11/21 17:35: Lactic Acid Level 2.25*H 10/11/21 19:46: Lactic Acid Level 2.40*H 10/11/21 21:49: Lactic Acid Level 1.89 Objective Exam Last Set of Vital Signs Vital Signs Date Time Temp Pulse Resp B/P (MAP) Pulse Ox O2 Delivery O2 Flow Rate FiO2 10/13/21 22:02 74 16 96 21 10/13/21 20:00 Mechanical Ventilator 10/13/21 19:58 36.1 10/13/21 18:00 177/95 (122) 21.00 Capillary Refill : Less Than 3 Seconds I&O Intake and Output 10/12/21 23:59 Intake Total 2400 ml Output Total 1150 ml Balance 1250 ml Intake Oral 0 ml IV Total 2400 ml Output Urine Total 1000 ml Gastric Drainage Total 150 ml General: Other (intubated and sedated) Lungs: Clear to Auscultation Heart: Regular Rate, No Murmurs Abdomen: Normal Bowel Sounds, Soft Extremities: No Edema, No Tenderness/Swelling Results/Procedures Lab Laboratory Tests 10/12/21 23:26: Glucometer 199H 10/13/21 04:07: Blood Gas Puncture Site RIGHT RADIAL, Blood Gas Patient Temperature 36.9, Arterial Blood pH 7.42, Arterial Blood Partial Pressure CO2 41, Arterial Blood Partial Pressure O2 60L, Arterial Blood HCO3 26, Arterial Blood Total CO2 27.3, Arterial Blood Oxygen Saturation 92L, Arterial Blood Base Excess 1.9, Karl Test POSITIVE, Blood Gas Ventilator Setting YES, Blood Gas Inspired Oxygen 21 10/13/21 04:45: White Blood Count 11.6H, Red Blood Count 3.91, Hemoglobin 11.7, Hematocrit 35, Mean Corpuscular Volume 90, Mean Corpuscular Hemoglobin 30, Mean Corpuscular Hemoglobin Concent 33, Red Cell Distribution Width 12.8, Platelet Count 163, Mean Platelet Volume 11.3, Immature Granulocyte % (Auto) 0, Neutrophils (%) (Auto) 64, Lymphocytes (%) (Auto) 26, Monocytes (%) (Auto) 9, Eosinophils (%) (Auto) 0, Basophils (%) (Auto) 0, Neutrophils # (Auto) 7.5, Lymphocytes # (Auto) 3.0, Monocytes # (Auto) 1.1H, Eosinophils # (Auto) 0.0, Basophils # (Auto) 0.0, Immature Granulocyte # (Auto) 0.0, Sodium Level 138, Potassium Level 3.1L, Chloride Level 102, Carbon Dioxide Level 19L, Anion Gap 17H, Blood Urea Nitrogen 21H, Creatinine 0.86, Estimat Glomerular Filtration Rate 73, BUN/Creatinine Ratio 24, Glucose Level 199H, Calcium Level 8.7, Phosphorus Level 3.9, Magnesium Level 1.5L 10/13/21 11:52: Glucometer 225H 10/13/21 17:44: Glucometer 229H 10/13/21 20:45: Blood Gas Puncture Site UNKNOWN, Blood Gas Patient Temperature 36, Arterial Blood pH 7.42, Arterial Blood Partial Pressure CO2 42, Arterial Blood Partial Pressure O2 69L, Arterial Blood HCO3 27, Arterial Blood Total CO2 28.2, Arterial Blood Oxygen Saturation 96, Arterial Blood Base Excess 2.5, Karl Test UNKNOWN, Blood Gas Ventilator Setting YES, Blood Gas Inspired Oxygen 21% Microbiology 10/11/21 MRSA Screen - Final, Complete MRSA not isolated 10/11/21 Gram Stain - Final, Resulted 10/11/21 CSF Culture - Preliminary, Resulted No growth 10/11/21 Blood Culture - Preliminary, Resulted No growth Assessment/Plan Assessment/Plan (1) Altered mental status Status: Acute Assessment & Plan: - Patient had 1 episode of fever, no source of infection found, Normal LP, CT normal: no acute findings, consider MRI if patient does not start to wake up when blood pressure is controlled 10/13: No change in mental status, will try and decrease opiates, consider repeat CT scan in AM if still intubated, no signs of infection, likely encephalopathy 2/2 hypertensive crisis Qualifiers: Qualified Codes: R41.82 - Altered mental status, unspecified (2) Hypertensive emergency Status: Acute Assessment & Plan: - Cardene drip, permissive HTN and will titrate blood pressure down slowly (3) Fever Status: Acute Assessment & Plan: - No source of infection Qualifiers: Qualified Codes: R50.9 - Fever, unspecified (4) Lactic acidosis Status: Acute (5) Low TSH level Status: Acute Assessment & Plan: - T3 pending, normal T4 (6) Hypokalemia Status: Acute Assessment & Plan: - ICU protocol, replace and repeat CMP (7) DVT prophylaxis Status: Acute Assessment & Plan: - Lovenox (8) Discharge planning issues Assessment & Plan: 10/12: Spoke with QUINN Das today at 1400, she was discuss ing the possiblility of transfer to hospital with neurology. Discussed that at this point they would not likely be doing anything different that we can not do here, she was agreeable to work on getting patient extubated and continuing to titrate blood pressure. Will update QUINN in the AM. RENEE EAST MD Oct 13, 2021 23:13
[2021-10-14] VITALS (26 sets, daily range): BP systolic 88–177; BP diastolic 46–97
[2021-10-14] MEDS: inSUlin ASPART (NovoLOG) 1 UNIT/0.01 ML (CHARGE PER UNIT) SC SCH ×4 (00:34→17:39)
[2021-10-14] MEDS: DexMEDEtomidine 250 ML DRIP 250 ML IV SCH ×2 (01:21→20:25)
[2021-10-14] MEDS ORDERED: NS (IVPB) 250 ML ONE (03:33)
[2021-10-14] MEDS ORDERED: niCARdipine IV FOR DRIP 50 MG KIT ONE (03:33)
[2021-10-14] MEDS: niCARdipine IV 50 MG in NS (IVPB) 230 ML IV SCH ×3 (03:45→12:32)
[2021-10-14] MEDS: LACTATED RINGERS 1,000 ML IV SCH (04:10)
[2021-10-14 04:47] LABS: BASOPHILS % (AUTO) 0 % (0-10); HEMOGLOBIN 11.8 g/dL (11.5-16.0); LYMPHOCYTES # (AUTO) 1.3 10^3/uL (1.0-4.0); MEAN PLATELET VOLUME 11.6 fL (9.0-12.2); MONOCYTES % (AUTO) 7 % (0-12)
[2021-10-14 04:49] LABS: EOSINOPHILS % (AUTO) 0 % (0-10); HEMATOCRIT 35 % (35-52); LYMPHOCYTES % (AUTO) 14 % (12-44); MEAN CORPUSCULAR HEMOGLOBIN 30 pg (25-34); MEAN CORPUSCULAR HGB CONC 34 g/dL (32-36); MEAN CORPUSCULAR VOLUME 89 fL (80-99); MONOCYTES # (AUTO) 0.7 10^3/uL (0.0-1.0); NEUTROPHILS # (AUTO) 7.7 10^3/uL (1.8-7.8); NEUTROPHILS % (AUTO) 79 % (42-75); PLATELET COUNT 128 10^3/uL (130-400); WHITE BLOOD COUNT 9.8 10^3/uL (4.3-11.0)
[2021-10-14 04:55] LABS: POTASSIUM 3.4 MMOL/L (3.6-5.0)
[2021-10-14 04:56] LABS: CALCIUM 8.5 MG/DL (8.5-10.1)
[2021-10-14 05:00] LABS: PHOSPHORUS 3.5 MG/DL (2.3-4.7)
[2021-10-14 05:01] LABS: CREATININE SERUM 0.69 MG/DL (0.60-1.30)
[2021-10-14 05:03] LABS: MAGNESIUM 1.6 MG/DL (1.6-2.4)
[2021-10-14] MEDS ORDERED: KCL 20 MEQ TAB (K-DUR) PO ONE (05:30)
[2021-10-14] MEDS: POTASSIUM CL 10MEQ/50ML IVPB 50 ML IV SCH ×3 (05:42→07:56)
[2021-10-14] MEDS: KCL 20 MEQ TAB (K-DUR) PO SCH (05:43)
[2021-10-14] MEDS: MAGNESIUM 1 GM/100 ML IVPB 100 ML IV SCH ×3 (05:43→08:50)
[2021-10-14] MEDS: PROPOFOL DRIP (ICU) 100 ML IV SCH ×2 (08:04→17:41)
--- NOTE | 2021-10-14 08:32 | Tele-ICU Progress Note ---
Progress Note TeleICU Nursing and RT at bedside requesting permission to extubate- pt is awake, following commands, saturating well on FiO2 of 21%. successful extubation done. The current working diagnosis for her presenting complaint of confusion and altered mental status is that of hypertensive crisis, now controlled.. LP, neuro workup to date has been negative. Review of labs today shows that platelet count has been dropping daily Admit 213,000-->206,000-->163,000-->128,000 today Admit Hgb 13.7-->11.8 today She is not on lovenox or heparin, is on SCDs for DVT prophylaxis. Pt to have further neuro eval when sedation is worn off, however will request a heme-onc consult today to assess the thrombocytopenia with neuro changes. (r/o TTP). Ordered manual differential, LDH, Bili-total and direct. D/W nursing. DAYDAY HICKEY DO Oct 14, 2021 08:32
[2021-10-14] MEDS: FAMOTIDINE 20MG/2ML IV (PEPCID) IVP SCH ×2 (08:49→20:25)
[2021-10-14] MEDS: MICONAZOLE 2% POWDER (DESENEX AF) 90 GM TOP SCH ×2 (09:53→20:25)
[2021-10-14] MEDS: lisINopril 20 MG (PRINIVIL) TABLET PO SCH (09:53)
[2021-10-14 10:06] LABS: BASOPHILS # (AUTO) 0.1 10^3/uL (0.0-0.1); BASOPHILS % (AUTO) 1 % (0-10); EOSINOPHILS % (AUTO) 0 % (0-10); HEMATOCRIT 39 % (35-52); HEMOGLOBIN 13.2 g/dL (11.5-16.0); LYMPHOCYTES # (AUTO) 1.7 10^3/uL (1.0-4.0); LYMPHOCYTES % (AUTO) 16 % (12-44); MEAN CORPUSCULAR HEMOGLOBIN 30 pg (25-34); MEAN CORPUSCULAR HGB CONC 34 g/dL (32-36); MEAN CORPUSCULAR VOLUME 89 fL (80-99); MEAN PLATELET VOLUME 11.2 fL (9.0-12.2); MONOCYTES # (AUTO) 0.7 10^3/uL (0.0-1.0); MONOCYTES % (AUTO) 7 % (0-12); NEUTROPHILS # (AUTO) 7.9 10^3/uL (1.8-7.8); NEUTROPHILS % (AUTO) 76 % (42-75); PLATELET COUNT 145 10^3/uL (130-400); WHITE BLOOD COUNT 10.4 10^3/uL (4.3-11.0)
[2021-10-14 10:20] LABS: BILIRUBIN,DIRECT 0.3 MG/DL (0.0-0.3); BILIRUBIN,INDIRECT 0.5 MG/DL; BILIRUBIN,TOTAL 0.8 MG/DL (0.1-1.0)
[2021-10-14 11:04] LABS: BAND NEUTROPHILS 0 %; BASOPHILS % (MANUAL) 0 %; EOSINOPHILS % (MANUAL) 1 %; LYMPHOCYTES % (MANUAL) 22 %; MONOCYTES % (MANUAL) 4 %; NEUTROPHILS % (MANUAL) 73 %
[2021-10-14 11:05] LABS: RBC MORPH NORMAL
--- NOTE | 2021-10-14 12:08 | Occupational Therapy Eval ---
OT Evaluation-General/PLF Medical Diagnosis Admission Date Oct 11, 2021 at 15:11 Medical Diagnosis: HTN Encephalopathy Onset Date: Oct 11, 2021 Therapy Diagnosis Therapy Diagnosis: reduced adl status, cognition, safety Precautions Precautions/Isolations: Fall Prevention, Standard Precautions Referral Physician: Stephen Referral Reason: Evaluation/Treatment Medical History Pertinent Medical History: HTN Current History Pt presented to ER with increased confusion and AMS. EMS noted she was significantly hypertensive with systolic blood pressures as high as the 220s. Patient does have a known history of hypertension and it is unknown when she last took her medications. During lumbar puncture procedure, pt began heaving and appeared to be unable to protect airway reflexes. Pt ultimately intubated. She was extubated 10/14/21. Pt still confused, poor historian, oriented to self only. Nephew in room, able to provide PLOF. Per family, pt was indep with adls and iadls, she was not using any AD and was still driving. She lives in her home with her S.O. Laundry is located in the basement. Reviewed History: Yes Social History Home: Single Level Current Living Status: Significant Other Steps Into Home: 5 ADL-Prior Level of Function SCALE: Activities may be completed with or without assistive devices. 6-Tytxrfhkas-vtjwexi completes the activity by him/herself with no assistance from a helper. 5-Set-up or Clean-up Assistance-helper sets up or cleans up; patient completes activity. [place] assists only prior to or following the activity. 4-Supervision or Touching Assistance-helper provides verbal cues and/or touching/steadying and/or contact guard assistance as patient completes activity. Assistance may be provided throughout the activity or intermittently. 3-Partial/Moderate Assistance-helper does LESS THAN HALF the effort. [place] lifts, holds or supports trunk or limbs, but provides less than half the effort. 2-Substantial/Maximal Assistance-helper does MORE THAN HALF the effort. [place] lifts or holds trunk or limbs and provides more than half the effort. 3-Dttvfzvsh-pshhsq does ALL the effort. Patient does none of the effort to complete the activity. Or, the assistance of 2 or more helpers is required for the patient to complete the activity. If activity was not attempted, code reason: 7-Patient Refused. 9-Not Applicable-not attempted and the patient did not perform the activity before the current illness, exacerbation or injury. 10-Not Attempted due to Environmental Limitations-(lack of equipment, weather restraints, etc.). 88-Not Attempted due to Medical Conditions or Safety Concerns. Self Care: Independent Functional Cognition: Independent Drive Self: Yes OT Current Status Subjective Pt confused, unable to answer simple yes/no questions or verbalize if she was experiencing any pain. Appearance Pt left supine in bed, nephew in room, RN notified. Mental Status/Objective Patient Orientation: Confused Current Upper Extremity ROM Difficulty following directions, resistant at times. With time, pt able to complete ~3/4 shoulder AROM bilateral elbows appear WFL Impaired dexterity/finger opposition. ADL-Treatment Toileting Hygiene (QC): 1 (cool catheter) Pt supine in bed at OT arrival. She was recently extubated earlier this morning. Difficulty following simple 1 step commands. Oriented to self only. Cues to turn head to R in order to identify family member in the room. Pt unable to recall family's name or relation. Delayed visual pursuits, yet unsure if due to poor ability to follow commands or visual deficit. Max a to initiate rolling R/L. No OOB/EOB activities performed this date due to inability to follow simple commands. Education OT Patient Education: Correct positioning, Purpose of tx/functional activities, Rehab process, Safety issues, Transfer techniques Teaching Recipient: Patient, Family Teaching Methods: Demonstration, Discussion Response to Teaching: Unable to Return Demonstration, Unable to Comprehend, Reinforcement Needed OT Experiential Therapist Goals [facility] Goals Time Frame: November 04, 2021 Eating (QC): 4 Oral Hygiene (QC): 4 Toileting Hygiene (QC): 4 Shower/Bathe Self (QC): 4 Upper Body Dressing (QC): 4 Lower Body Dressing (QC): 4 On/Off Footwear (QC): 4 1=Demonstrate adherence to instructed precautions during ADL tasks. 2=Patient will verbalize/demonstrate understanding of assistive devices/modifications for ADL. 3=Patient will improve strength/tolerance for activity to enable patient to perform ADL's. OT Education/Plan Problem List/Assessment Assessment: Decreased Activ Tolerance, Decreased Safety Aware, Decreased UE Strength, Dependent Transfers, Impaired Bed Mobility, Impaired Cognition, Impaired Coordination, Impaired Funct Balance, Impaired I ADL's, Impaired Self- Care Skills, Restricted Funct UE ROM Discharge Recommendations Plan/Recommendations: Continue POC Therapy Discharge Recommendati: Post Acute OT Treatment Plan/Plan of Care Patient would benefit from OT for education, treatment and training to promote independence in ADL's, mobility, safety and/or upper extremity function for ADL' s. Plan of Care: ADL Retraining, Cognitive Retraining, Functional Mobility, Group Exercise/Act as Ind, UE Funct Exercise/Act Treatment Duration: November 04, 2021 Frequency: 3 times per week (3-5x/week) Estimated Hrs Per Day: .25 hour per day Rehab Potential: Guarded Time/GCodes Start Time: 11:46 Stop Time: 11:57 Total Time Billed (hr/min): 11 Billed Treatment Time 1 visit Therese Garcia OT Oct 14, 2021 12:08
--- NOTE | 2021-10-14 12:22 | Progress Note ---
Subjective Subjective/Events-last exam Patient states that she is doing better this AM. She was able to be extubated early this AM. States that she is feeling alittle slower this AM. She is wanting to try and eat today. Discussed that we will have to wait and do a swallow study. Review of Systems General: Fatigue Pulmonary: Cough Cardiovascular: No: Chest Pain, Palpitations Gastrointestinal: No: Nausea, Vomiting, Diarrhea, Constipation Neurological: Weakness, Incoordination, Confusion Focused Exam Lactate Level 10/11/21 17:35: Lactic Acid Level 2.25*H 10/11/21 19:46: Lactic Acid Level 2.40*H 10/11/21 21:49: Lactic Acid Level 1.89 Objective Exam Last Set of Vital Signs Vital Signs Date Time Temp Pulse Resp B/P (MAP) Pulse Ox O2 Delivery O2 Flow Rate FiO2 10/14/21 11:19 94 Nasal Cannula 2.00 10/14/21 11:00 79 35 145/79 (101) 10/14/21 08:00 36.1 10/14/21 07:55 21 Capillary Refill : Less Than 3 Seconds I&O Intake and Output 10/14/21 00:00 Intake Total 1100 ml Output Total 2500 ml Balance -1400 ml Intake Oral 0 ml IV Total 1100 ml Output Urine Total 2375 ml Gastric Drainage Total 125 ml General: Alert, Oriented X3, No Acute Distress Lungs: Clear to Auscultation, Normal Air Movement Heart: Regular Rate, No Murmurs Abdomen: Soft, No Tenderness Extremities: Other (1+ pitting edema bilaterally) Neuro: Normal Speech (but slowed) Results/Procedures Lab Laboratory Tests 10/13/21 17:44: Glucometer 229H 10/13/21 20:45: Blood Gas Puncture Site UNKNOWN, Blood Gas Patient Temperature 36, Arterial Blood pH 7.42, Arterial Blood Partial Pressure CO2 42, Arterial Blood Partial Pressure O2 69L, Arterial Blood HCO3 27, Arterial Blood Total CO2 28.2, Arterial Blood Oxygen Saturation 96, Arterial Blood Base Excess 2.5, Karl Test UNKNOWN, Blood Gas Ventilator Setting YES, Blood Gas Inspired Oxygen 21% 10/14/21 00:29: Glucometer 184H 10/14/21 04:27: White Blood Count 9.8, Red Blood Count 3.93, Hemoglobin 11.8, Hematocrit 35, Mean Corpuscular Volume 89, Mean Corpuscular Hemoglobin 30, Mean Corpuscular Hemoglobin Concent 34, Red Cell Distribution Width 11.9, Platelet Count 128L, Mean Platelet Volume 11.6, Immature Granulocyte % (Auto) 0, Neutrophils (%) (Auto) 79H, Lymphocytes (%) (Auto) 14, Monocytes (%) (Auto) 7, Eosinophils (%) (Auto) 0, Basophils (%) (Auto) 0, Neutrophils # (Auto) 7.7, Lymphocytes # (Auto) 1.3, Monocytes # (Auto) 0.7, Eosinophils # (Auto) 0.0, Basophils # (Auto) 0.0, Immature Granulocyte # (Auto) 0.0, Percent Immature Platelet Fraction 7.0, Sodium Level 139, Potassium Level 3.4L, Chloride Level 103, Carbon Dioxide Level 20L, Anion Gap 16H, Blood Urea Nitrogen 19H, Creatinine 0.69, Estimat Glomerular Filtration Rate 93, BUN/Creatinine Ratio 28, Glucose Level 202H, Calcium Level 8.5, Phosphorus Level 3.5, Magnesium Level 1.6, Triglycerides Level 109 10/14/21 09:45: White Blood Count 10.4, Red Blood Count 4.34, Hemoglobin 13.2, Hematocrit 39, Mean Corpuscular Volume 89, Mean Corpuscular Hemoglobin 30, Mean Corpuscular Hemoglobin Concent 34, Red Cell Distribution Width 11.7, Platelet Count 145, Mean Platelet Volume 11.2, Immature Granulocyte % (Auto) 0, Neutrophils (%) (Auto) 76H, Lymphocytes (%) (Auto) 16, Monocytes (%) (Auto) 7, Eosinophils (%) (Auto) 0, Basophils (%) (Auto) 1, Neutrophils # (Auto) 7.9H, Lymphocytes # (Auto) 1.7, Monocytes # (Auto) 0.7, Eosinophils # (Auto) 0.0, Basophils # (Auto) 0.1, Immature Granulocyte # (Auto) 0.0, Neutrophils % (Manual) 73, Lymphocytes % (Manual) 22, Monocytes % (Manual) 4, Eosinophils % (Manual) 1, Basophils % (Manual) 0, Band Neutrophils 0, Blood Morphology Comment NORMAL, Total Bilirubin 0.8, Direct Bilirubin 0.3, Indirect Bilirubin 0.5, Lactate Dehydrogenase 169 10/14/21 11:48: Glucometer 199H Microbiology 10/11/21 MRSA Screen - Final, Complete MRSA not isolated 10/11/21 Gram Stain - Final, Complete 10/11/21 CSF Culture - Final, Complete No growth 10/11/21 Blood Culture - Preliminary, Resulted No growth Assessment/Plan Assessment/Plan (1) Altered mental status Status: Acute Assessment & Plan: - Patient had 1 episode of fever, no source of infection found, Normal LP, CT normal: no acute findings, consider MRI if patient does not start to wake up when blood pressure is controlled 10/13: No change in mental status, will try and decrease opiates, consider repeat CT scan in AM if still intubated, no signs of infection, likely encephalopathy / hypertensive crisis 10/14: Patient extubated this AM, She is AOx3 with slowed mentation Qualifiers: Qualified Codes: R41.82 - Altered mental status, unspecified (2) Hypertensive emergency Status: Acute Assessment & Plan: - Cardene drip, permissive HTN and will titrate blood pressure down slowly 10/14: Will start PO meds when she passes the swallow study and titrate cardene down (3) Fever Status: Resolved Assessment & Plan: - No source of infection Qualifiers: Qualified Codes: R50.9 - Fever, unspecified (4) Lactic acidosis Status: Resolved (5) Low TSH level Status: Acute Assessment & Plan: - T3 pending, normal T4 (6) Hypokalemia Status: Acute Assessment & Plan: - ICU protocol, replace and repeat CMP (7) DVT prophylaxis Status: Acute Assessment & Plan: - Lovenox (8) Discharge planning issues Assessment & Plan: 10/12: Spoke with QUINN Das today at 1400, she was discussing the possiblility of transfer to hospital with neurology. Discussed that at this point they would not likely be doing anything different that we can not do here, she was agreeable to work on getting patient extubated and continuing to titrate blood pressure. Will update QUINN in the AM. RENEE EAST MD Oct 14, 2021 12:22
--- NOTE | 2021-10-14 14:15 | Physical Therapy Progress Note ---
Therapy Progress Note Attempted to see patient for PT initial evaluation. CHRISTIANO Humphreys request hold till am as patient is confused, disoriented and won't follow any directions. He requests PT evaluation be done tomorrow. Will attempt again and progress patient per tolerance. TRAN DAVEY PT Oct 14, 2021 14:15
[2021-10-14] MEDS: fentaNYL DRIP PRE-MIX 250 ML IV SCH (17:42)
[2021-10-15] VITALS (16 sets, daily range): BP systolic 119–165; BP diastolic 61–91
[2021-10-15] MEDS: niCARdipine IV 50 MG in NS (IVPB) 230 ML IV SCH (02:18)
[2021-10-15] MEDS: DexMEDEtomidine 250 ML DRIP 250 ML IV SCH (03:31)
[2021-10-15 04:28] LABS: BASOPHILS % (AUTO) 1 % (0-10); EOSINOPHILS # (AUTO) 0.1 10^3/uL (0.0-0.3); EOSINOPHILS % (AUTO) 1 % (0-10); HEMATOCRIT 37 % (35-52); HEMOGLOBIN 12.6 g/dL (11.5-16.0); LYMPHOCYTES # (AUTO) 1.7 10^3/uL (1.0-4.0); LYMPHOCYTES % (AUTO) 20 % (12-44); MEAN CORPUSCULAR HEMOGLOBIN 30 pg (25-34); MEAN CORPUSCULAR HGB CONC 34 g/dL (32-36); MEAN CORPUSCULAR VOLUME 88 fL (80-99); MEAN PLATELET VOLUME 11.7 fL (9.0-12.2); MONOCYTES # (AUTO) 0.6 10^3/uL (0.0-1.0); MONOCYTES % (AUTO) 7 % (0-12); NEUTROPHILS % (AUTO) 71 % (42-75); PLATELET COUNT 146 10^3/uL (130-400); WHITE BLOOD COUNT 8.5 10^3/uL (4.3-11.0)
[2021-10-15] MEDS: PROPOFOL DRIP (ICU) 100 ML IV SCH (04:40)
[2021-10-15 04:55] LABS: CALCIUM 8.6 MG/DL (8.5-10.1); CREATININE SERUM 0.68 MG/DL (0.60-1.30); MAGNESIUM 1.5 MG/DL (1.6-2.4); PHOSPHORUS 2.7 MG/DL (2.3-4.7); POTASSIUM 3.1 MMOL/L (3.6-5.0)
[2021-10-15] MEDS ORDERED: niCARdipine IV FOR DRIP 50 MG KIT ONE (05:13)
[2021-10-15] MEDS ORDERED: NS (IVPB) 250 ML ONE (05:14)
[2021-10-15] MEDS: LACTATED RINGERS 1,000 ML IV SCH ×2 (05:20→16:58)
[2021-10-15] MEDS: MAGNESIUM 1 GM/100 ML IVPB 100 ML IV SCH ×3 (05:22→06:22)
[2021-10-15] MEDS: POTASSIUM CL 10MEQ/50ML IVPB 50 ML IV SCH ×5 (05:28→08:05)
[2021-10-15] MEDS: inSUlin ASPART (NovoLOG) 1 UNIT/0.01 ML (CHARGE PER UNIT) SC SCH ×5 (05:29→23:55)
[2021-10-15] MEDS: KCL 20 MEQ TAB (K-DUR) PO SCH (05:29)
[2021-10-15] MEDS: lisINopril 20 MG (PRINIVIL) TABLET PO SCH (08:21)
[2021-10-15] MEDS: FAMOTIDINE 20MG/2ML IV (PEPCID) IVP SCH ×2 (08:54→20:05)
[2021-10-15] MEDS: MICONAZOLE 2% POWDER (DESENEX AF) 90 GM TOP SCH ×2 (08:55→20:06)
--- NOTE | 2021-10-15 09:50 | Tele-ICU Progress Note ---
Subjective Date Seen by a Provider: Oct 15, 2021 Time Seen by a Provider: 09:10 Subjective/Events-last exam This virtual visit was conducted using real time audio/video. Thank you for asking us to see this patient for htnsive urgency/enceph. Recent events: Cardene and prec stopped. PE: VSS. 130/67 O2 sat 92% on RA. HEENT: No obvious masses, adenopathy or JVD. Chest: clear to auscultation. CV: RRR S1 S2 No murmur or added sounds. Abd: Non-tender. Bowel sounds Y. : Unremarkable. Roberto Y. DIRECTOR EPIDEMIOLOGY/psychiatric: Grossly intact. No obvious focal findings. Extremities: No edema. Capillary refill < 3 seconds. Skin: unremarkable. Results: Elevated Na 146, BUN 21, BG 200. Decreased K 3.1, PO4 1.5. . Available chart/ vitals / labs / images reviewed. Video assessment done using teleICU camera, rest of exam as per RN. A/P: Critical Care: critically ill patient. Cont.SCDs, SSI, pepcid, HCTZ, Lisin. Replace K, PO4. Discussed with RN Wilfrid. Asked RN to reach out to eICU if any questions or concerns later. Time spent with patient/coordination of care with other health professionals (mins): 15 Sepsis Event Evaluation Height, Weight, BMI Height: '" Weight: lbs. oz. kg; 34.09 BMI Method: Exam Exam Patient acknowledged, consented, and participated in this virtual visit which was conducted using real time audio/video Vital Signs Date Time Temp Pulse Resp B/P (MAP) Pulse Ox O2 Delivery O2 Flow Rate FiO2 10/15/21 08:09 36.0 64 14 132/73 (92) 93 Room Air 10/15/21 08:00 93 Room Air 10/15/21 07:36 35.4 10/15/21 07:00 61 10/15/21 06:00 62 14 134/64 (87) 92 OxyMask 5.00 10/15/21 05:00 63 17 121/65 (83) 92 OxyMask 5.00 10/15/21 04:00 61 15 119/67 (84) 92 OxyMask 5.00 10/15/21 04:00 92 Room Air 10/15/21 03:31 64 123/61 10/15/21 03:00 61 16 126/62 (83) 94 OxyMask 5.00 10/15/21 02:48 130/66 10/15/21 02:18 153/74 10/15/21 02:00 61 15 120/61 (80) 94 Room Air 10/15/21 01:51 36.0 10/15/21 01:00 62 17 153/74 (100) 92 Room Air 10/15/21 01:00 62 10/15/21 00:00 36.0 67 21 147/72 (97) 92 Room Air 10/15/21 00:00 92 Room Air 10/14/21 23:00 62 15 135/67 (89) 92 Room Air 10/14/21 22:00 60 15 131/65 (87) 92 Room Air 10/14/21 21:00 63 24 141/71 (94) 92 Room Air 10/14/21 20:25 76 124/64 10/14/21 20:00 92 Room Air 10/14/21 20:00 70 22 124/63 (83) 91 Room Air 10/14/21 19:26 36.0 10/14/21 19:00 74 10/14/21 19:00 74 12 148/77 (100) 90 Room Air 10/14/21 18:00 68 12 121/65 (83) 91 Nasal Cannula 2.00 10/14/21 18:00 68 12 121/65 (83) 91 Nasal Cannula 2.00 10/14/21 17:00 68 16 116/46 (69) 91 Nasal Cannula 2.00 10/14/21 16:00 71 18 95/53 (67) 89 Nasal Cannula 2.00 10/14/21 15:34 36.1 10/14/21 15:05 94 Nasal Cannula 2.00 10/14/21 15:00 76 22 120/65 (83) 90 Nasal Cannula 2.00 10/14/21 14:00 91 22 122/63 (82) 90 Nasal Cannula 2.00 10/14/21 13:02 141/67 10/14/21 13:00 90 10/14/21 13:00 89 9 177/97 (123) 91 Nasal Cannula 2.00 10/14/21 12:32 141/67 10/14/21 12:00 91 20 141/67 (91) 96 Nasal Cannula 2.00 10/14/21 11:19 94 Nasal Cannula 2.00 10/14/21 11:00 79 35 145/79 (101) 95 Nasal Cannula 2.00 10/14/21 10:00 73 20 145/68 (93) 95 Mechanical Ventilator 21.00 I & O 10/15/21 07:00 Intake Total 200 ml Output Total 2060 ml Balance -1860 ml Height & Weight Height: '" Weight: lbs. oz. kg; 34.09 BMI Method: General Appearance: No Apparent Distress Capillary Refill: Less Than 3 Seconds Gastrointestinal: normal bowel sounds, soft Results Lab Laboratory Tests 10/14/21 04:27 10/14/21 09:45 10/15/21 04:15 Assessment/Plan Assessment/Plan See free text. Critical Care: Critically Ill Patient VENKAT BRUNNER MD Oct 15, 2021 09:50
--- NOTE | 2021-10-15 10:19 | Progress Note ---
Subjective Subjective/Events-last exam Patient pleasantly confused but answers question appropriately. Standing and working with PT this AM. Denies any pain. No ON events. Review of Systems Pulmonary: Dyspnea Cardiovascular: No: Chest Pain, Palpitations Neurological: Weakness, Incoordination, Confusion, Other (slowed speech) Objective Exam Last Set of Vital Signs Vital Signs Date Time Temp Pulse Resp B/P (MAP) Pulse Ox O2 Delivery O2 Flow Rate FiO2 10/15/21 09:00 61 121/67 (85) 92 Room Air 10/15/21 08:09 36.0 14 10/15/21 08:00 5.00 10/14/21 07:55 21 Capillary Refill : Less Than 3 Seconds I&O Intake and Output 10/15/21 00:00 Intake Total 200 ml Output Total 1675 ml Balance -1475 ml Intake Oral 0 ml IV Total 200 ml Output Urine Total 1675 ml Results/Procedures Lab Laboratory Tests 10/14/21 11:48: Glucometer 199H 10/14/21 17:28: Glucometer 210H 10/14/21 23:18: Glucometer 162H 10/15/21 04:15: White Blood Count 8.5, Red Blood Count 4.23, Hemoglobin 12.6, Hematocrit 37, Mean Corpuscular Volume 88, Mean Corpuscular Hemoglobin 30, Mean Corpuscular Hemoglobin Concent 34, Red Cell Distribution Width 11.7, Platelet Count 146, Mean Platelet Volume 11.7, Immature Granulocyte % (Auto) 0, Neutrophils (%) (Auto) 71, Lymphocytes (%) (Auto) 20, Monocytes (%) (Auto) 7, Eosinophils (%) (Auto) 1, Basophils (%) (Auto) 1, Neutrophils # (Auto) 6.0, Lymphocytes # (Auto) 1.7, Monocytes # (Auto) 0.6, Eosinophils # (Auto) 0.1, Basophils # (Auto) 0.0, Immature Granulocyte # (Auto) 0.0, Sodium Level 146H, Potassium Level 3.1L, Chloride Level 106, Carbon Dioxide Level 19L, Anion Gap 21H, Blood Urea Nitrogen 16, Creatinine 0.68, Estimat Glomerular Filtration Rate 94, BUN/Creatinine Ratio 24, Glucose Level 200H, Calcium Level 8.6, Phosphorus Level 2.7, Magnesium Level 1.5L Microbiology 10/11/21 MRSA Screen - Final, Complete MRSA not isolated 10/11/21 Gram Stain - Final, Complete 10/11/21 CSF Culture - Final, Complete No growth 10/11/21 Blood Culture - Preliminary, Resulted No growth Assessment/Plan Assessment/Plan (1) Altered mental status Status: Acute Assessment & Plan: - Patient had 1 episode of fever, no source of infection found, Normal LP, CT normal: no acute findings, consider MRI if patient does not start to wake up when blood pressure is controlled 10/13: No change in mental status, will try and decrease opiates, consider repeat CT scan in AM if still intubated, no signs of infection, likely encephalopathy / hypertensive crisis 10/14: Patient extubated this AM, She is AOx3 with slowed mentation Qualifiers: Qualified Codes: R41.82 - Altered mental status, unspecified (2) Hypertensive emergency Status: Acute Assessment & Plan: - Cardene drip, permissive HTN and will titrate blood pressure down slowly 10/14: Will start PO meds when she passes the swallow study and titrate cardene down (3) Fever Status: Resolved Assessment & Plan: - No source of infection Qualifiers: Qualified Codes: R50.9 - Fever, unspecified (4) Lactic acidosis Status: Resolved (5) Low TSH level Status: Acute Assessment & Plan: - T3 pending, normal T4 (6) Hypokalemia Status: Acute Assessment & Plan: - ICU protocol, replace and repeat CMP (7) DVT prophylaxis Status: Acute Assessment & Plan: - Lovenox (8) Discharge planning issues Assessment & Plan: 10/12: Spoke with QUINN Das today at 1400, she was discussing the possiblility of transfer to hospital with neurology. Discussed that at this point they would not likely be doing anything different that we can not do here, she was agreeable to work on getting patient extubated and continuing to titrate blood pressure. Will update QUINN in the AM. RENEE EAST MD Oct 15, 2021 10:19
--- NOTE | 2021-10-15 10:22 | Physical Therapy Evaluation ---
PT Evaluation-General Medical Diagnosis Admission Date Oct 11, 2021 at 15:11 Medical Diagnosis: HTN Encephalopathy Onset Date: Oct 11, 2021 Therapy Diagnosis Therapy Diagnosis: impaired mobility, strength, endurance Precautions Precautions/Isolations: Aspiration, Fall Prevention, Standard Precautions Referral Physician: Stephen Reason for Referral: Evaluation/Treatment Medical History Pertinent Medical History: DM, HTN Reviewed History: Yes Social History Home: Single Level Current Living Status: Significant Other Entry Into Home: Stairs With Railing PT Steps Into Home: 5 Prior Prior Level of Function SCALE: Activities may be completed with or without assistive devices. 0-Vmtiigkzsu-gwecmwz completes the activity by him/herself with no assistance from a helper. 5-Set-up or Clean-up Assistance-helper sets up or cleans up; patient completes activity. [place] assists only prior to or following the activity. 4-Supervision or Touching Assistance-helper provides verbal cues and/or t ouching/steadying and/or contact guard assistance as patient completes activity. Assistance may be provided throughout the activity or intermittently. 3-Partial/Moderate Assistance-helper does LESS THAN HALF the effort. [place] lifts, holds or supports trunk or limbs, but provides less than half the effort. 2-Substantial/Maximal Assistance-helper does MORE THAN HALF the effort. [place] lifts or holds trunk or limbs and provides more than half the effort. 5-Omzsvbsub-nkccjl does ALL the effort. Patient does none of the effort to complete the activity. Or, the assistance of 2 or more helpers is required for the patient to complete the activity. If activity was not attempted, code reason: 7-Patient Refused. 9-Not Applicable-not attempted and the patient did not perform the activity before the current illness, exacerbation or injury. 10-Not Attempted due to Environmental Limitations-(lack of equipment, weather restraints, etc.). 88-Not Attempted due to Medical Conditions or Safety Concerns. Bed Mobility: 6 Transfers (B,C,W/C): 6 Gait: 6 Stairs: 6 Indoor Mobility (Ambulation): Independent Stairs: Independent PT Evaluation-Current Subjective Patient in bed pre tx, agrees to PT, has no complaints of pain. Patient is p retty slow to process, seems very tired/fatigued Pt/Family Goals none stated Objective Patient Orientation: Person, Confused Attachments: SCD's, Roberto Catheter, IV ROM/Strength ROM Lower Extremities WNL Strength Lower Extremities patient cannot follow directions for testing Sensory Hearing: Functional Transfers Roll Left to Right (QC): 1 Sit to Lying (QC): 1 Lying to Sitting/Side of Bed(Q: 1 Sit to Stand (QC): 2 Patient needs assist of 2 for supine to sit, and then stands for a couple of minutes with max assist, she is retropulsive in sitting and standing (severely with standing), she is able to take a couple of side steps to the head of the bed and then sit back down, then assist of 2 to lay down. Assessment/Needs Patient in bed post tx with nurse call, phone, tray, bed alarm on. Patient has impaired mobility, strength, endurance. She needs a lot of assist for mobility and is confused. She doesn't seem weaker on one side compared to the other but also was not able to perform strength testing. 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 Goals Rotary Rock Drilling Machine Operator Goals PT Rotary [employer] Drilling Machine Operator Goals Time Frame: October 22, 2021 Roll Left & Right (QC): 3 Sit to Lying (QC): 3 Lying-Sitting on Side/Bed(QC): 3 Sit to Stand (QC): 3 Chair/Tpe-ya-Ihwrc Xfer(QC): 3 Walk 10 feet (QC): 3 PT Plan Problem List Problem List: Activity Tolerance, Functional Strength, Safety, Balance, Gait, Transfer, Bed Mobility, ROM Treatment/Plan Treatment Plan: Continue Plan of Care Treatment Plan: Bed Mobility, Education, Functional Activity Sangeetha, Functional Strength, Gait, Safety, Therapeutic Exercise, Transfers Treatment Duration: October 22, 2021 Frequency: 6 times per week Estimated Hrs Per Day: .25 hour per day Patient and/or Family Agrees t: Yes Safety Risks/Education Patient Education: Correct Positioning, Safety Issues Teaching Recipient: Patient Teaching Methods: Demonstration, Discussion Response to Teaching: Reinforcement Needed Discharge Recommendations Plan Patient will perform bed mobility and transfer training, balance and endurance training, functional strengthening, stair training, gait training, and education, to improve functional mobility and independence at home. Therapy Discharge Recommendati: 24 Hour Supervision Time/GCodes Time In: 0951 Time Out: 1004 Total Billed Treatment Time: 13 Total Billed Treatment 1 visit TYRELL COOPER PT Oct 15, 2021 10:22
--- NOTE | 2021-10-15 10:28 | Occupational Ther Daily Note ---
OT Current Status-Daily Note Subjective Pt in bed, family at bedside. Pt confused throughout tx, able to follow some simple instructions. She had difficulty staying awake throughout tx, nursing reports pt was sedated over night. Mental Status/Objective Patient Orientation: Person, Confused Attachments: IV ADL-Treatment Therapy Code Descriptions/Definitions Functional Nolan Measure: 0=Not Assessed/NA 4=Minimal Assistance 1=Total Assistance 5=Supervision or Setup 2=Maximal Assistance 6=Modified Nolan 3=Moderate Assistance 7=Complete IndependenceSCALE: Activities may be completed with or without assistive devices. 5-Cvqttgsmpp-utemtcz completes the activity by him/herself with no assistance from a helper. 5-Set-up or Clean-up Assistance-helper sets up or cleans up; patient completes activity. [place] assists only prior to or following the activity. 4-Supervision or Touching Assistance-helper provides verbal cues and/or to uching/steadying and/or contact guard assistance as patient completes activity. Assistance may be provided throughout the activity or intermittently. 3-Partial/Moderate Assistance-helper does LESS THAN HALF the effort. [place] lifts, holds or supports trunk or limbs, but provides less than half the effort. 2-Substantial/Maximal Assistance-helper does MORE THAN HALF the effort. [place] lifts or holds trunk or limbs and provides more than half the effort. 9-Wojdwlsvv-xqstev does ALL the effort. Patient does none of the effort to complete the activity. Or, the assistance of 2 or more helpers is required for the patient to complete the activity. If activity was not attempted, code reason: 7-Patient Refused. 9-Not Applicable-not attempted and the patient did not perform the activity before the current illness, exacerbation or injury. 10-Not Attempted due to Environmental Limitations-(lack of equipment, weather restraints, etc.). 88-Not Attempted due to Medical Conditions or Safety Concerns. Other Treatment Pt in bed, no OOB/EOB activities performed on this date due to pt appearing confused, difficulty following instructions, and difficulty staying awake. AAROM performed in order to increase BUE strength and activity tolerance, 10reps for BUE shoulder flexion, and elbow flex/extension, then x10 reps PROM finger flexion/extension due to pt not following instructions. Post tx, pt in bed, call light in reach and all needs met, family present. Education OT Patient Education: Correct positioning, Modified ADL techniques, Progress toward Goal/Update tx plan, Purpose of tx/functional activities, Rehab process Teaching Recipient: Patient Teaching Methods: Discussion Response to Teaching: Reinforcement Needed OT Pet House Sitter Goals Pet House Sitter Goals Time Frame: November 04, 2021 Eating (QC): 4 Oral Hygiene (QC): 4 Toileting Hygiene (QC): 4 Shower/Bathe Self (QC): 4 Upper Body Dressing (QC): 4 Lower Body Dressing (QC): 4 On/Off Footwear (QC): 4 1=Demonstrate adherence to instructed precautions during ADL tasks. 2=Patient will verbalize/demonstrate understanding of assistive devices/modific ations for ADL. 3=Patient will improve strength/tolerance for activity to enable patient to perform ADL's. OT Education/Plan Problem List/Assessment Assessment: Decreased Activ Tolerance, Decreased Safety Aware, Decreased UE Strength, Impaired Funct Balance, Impaired I ADL's, Impaired Self-Care Skills, Restricted Funct UE ROM Discharge Recommendations Plan/Recommendations: Continue POC Treatment Plan/Plan of Care Patient would benefit from OT for education, treatment and training to promote independence in ADL's, mobility, safety and/or upper extremity function for ADL's. Plan of Care: ADL Retraining, Cognitive Retraining, Functional Mobility, Group Exercise/Act as Ind, UE Funct Exercise/Act Treatment Duration: November 04, 2021 Frequency: 3 times per week (3-5x/week) Estimated Hrs Per Day: .25 hour per day Rehab Potential: Guarded Time/GCodes Start Time: 09:15 Stop Time: 09:25 Total Time Billed (hr/min): 10 Billed Treatment Time 1, EX JAMES CAAL OT Oct 15, 2021 10:28
[2021-10-15] MEDS ORDERED: LORazepam INJ 2 MG/ML (ATIVAN) VIAL IVP NR (11:30)
[2021-10-15] MEDS ORDERED: GADOTERATE 0.5 MMOL/ML (CLARISCAN) 20 ML VIAL IV ONE (11:30)
--- NOTE | 2021-10-15 12:17 | Diagnostic Imaging Report ---
INDICATION: Altered mental status and confusion and hypertension. TECHNIQUE: MRI brain obtained without IV contrast. COMPARISON: There is no prior study for comparison. FINDINGS: Diffusion-weighted images demonstrate no acute ischemic changes. There is diffuse atrophic change. There is fairly extensive signal change in the deep white matter compatible with chronic ischemic change. There is no subdural or epidural collection. Ventricles are normal in size. Portions of the study are limited by motion artifact. IMPRESSION: Diffuse atrophic changes and chronic ischemic changes in the deep white matter. No acute hemorrhage or mass effect or acute ischemic change. Dictated by: Dictated on workstation # [id number]
--- NOTE | 2021-10-15 13:57 | ST Dysphagia Evaluation ---
Speech Evaluation-General Medical Diagnosis HTN Encephalopathy Onset Date: Oct 11, 2021 Therapy Diagnosis Therapy Diagnosis: Intact Oropharyngeal Swallow Precautions Precautions: Fall, Aspiration Precautions/Isolations: Aspiration, Fall Prevention, Standard Precautions Referral Referring Physician: Dr. Subha Mitchell Reason for Referral: Evaluation/Treatment Medical History Pertinent Medical History: DM, HTN Current History The patient is a 70 year old female with a past medical history of HTN and NIDDM, who presented to [facility] on 10/11/2021 with confusion and altered mental status. The patient was found to be in an hypertensive emergency and was intubated. The patient remained intubated until 10/14/2021. 10/15/2021: Brain MRI: IMPRESSION: Diffuse atrophic changes and chronic ischemic changes in the deep white matter. No acute hemorrhage or mass effect or acute ischemic change. 10/11/2021: CXR: 1. Support lines and tubes as above. 2. No identified acute cardiopulmonary normality. Reviewed History: Yes Social History Current Living Status: Significant Other Speech PLF/Current-Dysphagia Prior Level of Function The patient was unable to provide prior level of function information to the clinician due to her current level of confusion. The patient's daughter was present at bedside who stated the patient has not experienced oropharyngeal swallowing challenges or concerns in the past and consumed a regular diet with thin liquids at home. Subjective The patient was seated upright in bed with her eyes opened upon entrance to her room by the clinician. The patient's daughter is at bedside and remains for the evaluation. With assistance, the patient is positioned upright for safe swallowing. The patient remains confused, not responding to simple yes and no questions by the clinician. Cognitive Status Patient Orientation: Confused Oral Motor Skills Dentition: Natural Ability to Follow Directions: Unable Oral Expression Ability: Severe Impairment Voice Voice Phonatory-Based Quality: Normal Voice Pitch: Normal Voice Loudness: Normal Face Facial Symmetry: Symmetrical The patient was unable to follow simple, one-step commands with direct modeling and maximum clinician verbal cueing. Due to this, a formal oral mechanism exam could not be completed. Oral-Facial Assessment Oral-Facial Dentition: Normal Labial Seal Description: Normal Volitional Dry Swallow: No Voluntary Cough: No Can Clear Throat Volitionally: No Productive Cough: Yes Productive Throat Clear: Yes Dysphagia Evaluation Consistencies Presented: Regular, Thin Liquid, Pureed The patient displayed appropriate oral acceptance of the bolus consistency. The clinician was required to guide the straw into the patient's oral cavity as she continued to display coordination issues with motor planning (the patient continued to miss her mouth and place the straw near her nose, chin, or cheek). Adequate mastication and bolus formation was present with solid consistencies tested. A timely pharyngeal swallow response appeared to be triggered appropriately. Laryngeal elevation was present to palpation. The patient did not display s/s of suspected aspiration with any consistency consumed. Consistent redirection to task was required due to the patient's confusion level. Dietary Recommendations: Regular Liquid Recommendations: Thin Recommendations: - Regular consistency diet with thin liquids, as tolerated. - Fully upright and alert for P.O. intake. - 1:1 supervision and meal set-up/feeding assistance, as necessary (The patient continued to display difficulty locating the pieces of cracker, often grabbing prior to or following the piece). - Small bites and sips, only. - Monitor for s/s of suspected aspiration with P.O. intake. If demonstrated, c ontact speech pathology. The results and recommendations were discussed with the patient, the patient's family, and the RN. All verbalized comprehension and denied additional questions for the clinician at this time. Dysphagia Evaluation Summary The patient displayed an intact oropharyngeal swallow function. The patient does display an elevated risk of aspiration with P.O. intake secondary to current level of confusion, therefore, 1:1 supervision and assistance were recommended for P.O. situations. Speech Short Term Goals Short Term Goals Short Term Goals 1. The patient, family, and staff will follow safe swallowing strategies with 90% accuracy, independently. Time Frame-STG: Three Days. Speech Senior Care Goals Painter Ski Edge Goals 1. The patient will tolerate the least restricted diet consistency without s/s of suspected aspiration. Time Frame: One Week. Speech-Plan Treatment Plan Speech Therapy Treatment Plan: Continue Plan of Care Treatment Duration: October 22, 2021 Frequency: 3 times per week Estimated Hrs Per Day: .25 hour per day Rehab Potential: Guarded Pt/Family Agrees to Plan: Yes Safety Risks/Education Teaching Recipient: Patient, Family Teaching Methods: Discussion Response to Teaching: Reinforcement Needed Time Speech Therapy Time In: 13:15 Speech Therapy Time Out: 13:40 Total Billed Time: 25 Billed Treatment Time 1, ZOIE GIVENS [facility] Oct 15, 2021 13:57
--- NOTE | 2021-10-15 18:06 | Progress Note ---
Subjective Subjective/Events-last exam Patient up with PT this AM. She was able to stand for several mins and then sit to the side of the bed. She is still confused. Swallow study today. Denies any pain or shortness of breath. Review of Systems General: Malaise Neurological: Weakness, Incoordination, Confusion Objective Exam Last Set of Vital Signs Vital Signs Date Time Temp Pulse Resp B/P (MAP) Pulse Ox O2 Delivery O2 Flow Rate FiO2 10/15/21 16:35 37.2 10/15/21 16:00 98 161/91 (114) 92 Room Air 10/15/21 11:00 19 10/15/21 08:00 5.00 10/14/21 07:55 21 Capillary Refill : Less Than 3 Seconds I&O Intake and Output 10/15/21 00:00 Intake Total 200 ml Output Total 1675 ml Balance -1475 ml Intake Oral 0 ml IV Total 200 ml Output Urine Total 1675 ml General: Alert (alert to self and place, knows everyone in the room) Lungs: Clear to Auscultation, Normal Air Movement Heart: Regular Rate, No Murmurs Abdomen: Normal Bowel Sounds, Soft Extremities: Other (1+ pitting edema equal bilaterally) Neuro: Other (Slowed speech, LE strength 3/5 bilaterally) Results/Procedures Lab Laboratory Tests 10/14/21 23:18: Glucometer 162H 10/15/21 04:15: White Blood Count 8.5, Red Blood Count 4.23, Hemoglobin 12.6, Hematocrit 37, Mean Corpuscular Volume 88, Mean Corpuscular Hemoglobin 30, Mean Corpuscular Hemoglobin Concent 34, Red Cell Distribution Width 11.7, Platelet Count 146, Mean Platelet Volume 11.7, Immature Granulocyte % (Auto) 0, Neutrophils (%) (Auto) 71, Lymphocytes (%) (Auto) 20, Monocytes (%) (Auto) 7, Eosinophils (%) (Auto) 1, Basophils (%) (Auto) 1, Neutrophils # (Auto) 6.0, Lymphocytes # (Auto) 1.7, Monocytes # (Auto) 0.6, Eosinophils # (Auto) 0.1, Basophils # (Auto) 0.0, Immature Granulocyte # (Auto) 0.0, Sodium Level 146H, Potassium Level 3.1L, Chloride Level 106, Carbon Dioxide Level 19L, Anion Gap 21H, Blood Urea Nitrogen 16, Creatinine 0.68, Estimat Glomerular Filtration Rate 94, BUN/Creatinine Ratio 24, Glucose Level 200H, Calcium Level 8.6, Phosphorus Level 2.7, Magnesium Level 1.5L 10/15/21 10:53: Glucometer 169H 10/15/21 17:41: Glucometer 208H Microbiology 10/11/21 MRSA Screen - Final, Complete MRSA not isolated 10/11/21 Gram Stain - Final, Complete 10/11/21 CSF Culture - Final, Complete No growth 10/11/21 Blood Culture - Preliminary, Resulted No growth Assessment/Plan Assessment/Plan (1) Altered mental status Status: Acute Assessment & Plan: - Patient had 1 episode of fever, no source of infection found, Normal LP, CT normal: no acute findings, consider MRI if patient does not start to wake up when blood pressure is controlled 10/13: No change in mental status, will try and decrease opiates, consider repeat CT scan in AM if still intubated, no signs of infection, likely encephalopathy 07/22 hypertensive crisis 10/14: Patient extubated this AM, She is AOx3 with slowed mentation 10/15: Still having slowed mentation, MRI today which showed chronic m icrovascular changes, no acute ischemia or hemorrhage Qualifiers: Qualified Codes: R41.82 - Altered mental status, unspecified (2) Hypertensive emergency Status: Acute Assessment & Plan: - Cardene drip, permissive HTN and will titrate blood pressure down slowly 10/14: Will start PO meds when she passes the swallow study and titrate cardene down 10/15: Blood pressure better controlled (3) Fever Status: Resolved Assessment & Plan: - No source of infection Qualifiers: Qualified Codes: R50.9 - Fever, unspecified (4) Lactic acidosis Status: Resolved (5) Low TSH level Status: Acute Assessment & Plan: - T3 pending, normal T4 (6) Hypokalemia Status: Acute Assessment & Plan: - ICU protocol, replace and repeat CMP (7) DVT prophylaxis Status: Acute Assessment & Plan: - Lovenox (8) Discharge planning issues Assessment & Plan: 10/12: Spoke with QUINN Das today at 1400, she was discussing the possiblility of transfer to hospital with neurology. Discussed that at this point they would not likely be doing anything different that we can not do here, she was agreeable to work on getting patient extubated and continuing to titrate blood pressure. Will update QUINN in the AM. 10/15: QUINN Das was present today, discussed SNF vs acute rehab RENEE EAST MD Oct 15, 2021 18:06
[2021-10-15] MEDS ORDERED: LORazepam 0.5 MG (ATIVAN) TABLET PO ONE (22:30)
[2021-10-16] MEDS: LACTATED RINGERS 1,000 ML IV SCH (02:44)
[2021-10-16 03:34] VITALS: BP_SYST 150; BP_SYST 162; BP_DIAS 72; BP_DIAS 78
[2021-10-16 05:56] LABS: BASOPHILS % (AUTO) 0 % (0-10); EOSINOPHILS % (AUTO) 0 % (0-10); HEMATOCRIT 37 % (35-52); HEMOGLOBIN 12.6 g/dL (11.5-16.0); LYMPHOCYTES # (AUTO) 1.4 10^3/uL (1.0-4.0); LYMPHOCYTES % (AUTO) 14 % (12-44); MEAN CORPUSCULAR HEMOGLOBIN 30 pg (25-34); MEAN CORPUSCULAR HGB CONC 34 g/dL (32-36); MEAN CORPUSCULAR VOLUME 88 fL (80-99); MEAN PLATELET VOLUME 11.4 fL (9.0-12.2); MONOCYTES # (AUTO) 0.9 10^3/uL (0.0-1.0); MONOCYTES % (AUTO) 10 % (0-12); NEUTROPHILS # (AUTO) 7.3 10^3/uL (1.8-7.8); NEUTROPHILS % (AUTO) 75 % (42-75); PLATELET COUNT 187 10^3/uL (130-400); WHITE BLOOD COUNT 9.7 10^3/uL (4.3-11.0)
[2021-10-16 06:08] LABS: POTASSIUM 2.9 MMOL/L (3.6-5.0)
[2021-10-16 06:10] LABS: CALCIUM 8.5 MG/DL (8.5-10.1)
[2021-10-16 06:14] LABS: CREATININE SERUM 0.69 MG/DL (0.60-1.30); PHOSPHORUS 2.4 MG/DL (2.3-4.7)
[2021-10-16 06:17] LABS: MAGNESIUM 1.3 MG/DL (1.6-2.4)
[2021-10-16] MEDS: inSUlin ASPART (NovoLOG) 1 UNIT/0.01 ML (CHARGE PER UNIT) SC SCH ×4 (06:28→20:06)
[2021-10-16 07:13] VITALS: BP 183/79
[2021-10-16] MEDS: FAMOTIDINE 20MG/2ML IV (PEPCID) IVP SCH (08:18)
[2021-10-16] MEDS: lisINopril 20 MG (PRINIVIL) TABLET PO SCH (08:18)
[2021-10-16] MEDS: MICONAZOLE 2% POWDER (DESENEX AF) 90 GM TOP SCH ×2 (08:19→19:20)
--- NOTE | 2021-10-16 08:49 | Physical Therapy Daily Note ---
PT Daily Note-Current Subjective Patient in bed pre tx, agrees to PT, has no complaints of pain. Appearance Patient in recliner post tx with nurse call, phone, tray, chair alarm on. Mental Status Patient Orientation: Person, Confused Attachments: IV Transfers SCALE: Activities may be completed with or without assistive devices. 0-Pdkfomslmo-vcrswot completes the activity by him/herself with no assistance from a helper. 5-Set-up or Clean-up Assistance-helper sets up or cleans up; patient completes activity. [place] assists only prior to or following the activity. 4-Supervision or Touching Assistance-helper provides verbal cues and/or touching/steadying and/or contact guard assistance as patient completes activity. Assistance may be provided throughout the activity or intermittently. 3-Partial/Moderate Assistance-helper does LESS THAN HALF the effort. [place] lifts, holds or supports trunk or limbs, but provides less than half the effort. 2-Substantial/Maximal Assistance-helper does MORE THAN HALF the effort. [place] lifts or holds trunk or limbs and provides more than half the effort. 2-Nasggktfj-bumxqp does ALL the effort. Patient does none of the effort to complete the activity. Or, the assistance of 2 or more helpers is required for the patient to complete the activity. If activity was not attempted, code reason: 7-Patient Refused. 9-Not Applicable-not attempted and the patient did not perform the activity before the current illness, exacerbation or injury. 10-Not Attempted due to Environmental Limitations-(lack of equipment, weather restraints, etc.). 88-Not Attempted due to Medical Conditions or Safety Concerns. Roll Left & Right (QC): 4 Lying to Sitting/Side of Bed(Q: 3 Sit to Stand (QC): 3 Chair/Zqf-rm-Lvczz Xfer(QC): 3 Mod assist for supine to sit, patient sits on the side of the bed with min assist to maintain sitting balance, she is retropulsive with sitting, she stands with min assist and is still retropulsive and is able to take several steps to a recliner at bedside with min assist, cues for hand placement and safety. Exercises Seated Therapy Exercises: Ankle pumps, Long arc quads Seated Reps: 20 Treatments bed mobility and transfers, LE strengthening Assessment Current Status: Poor Progress Patient is retropulsive with sitting and standing PT Sr Solutions Consultant Goals Sr Solutions Consultant Goals PT Sr Solutions Consultant Goals Time Frame: October 22, 2021 Roll Left & Right (QC): 3 Sit to Lying (QC): 3 Lying-Sitting on Side/Bed(QC): 3 Sit to Stand (QC): 3 Chair/Zrx-qt-Exbck Xfer(QC): 3 Walk 10 feet (QC): 3 PT Plan Problem List Problem List: Activity Tolerance, Functional Strength, Safety, Balance, Gait, Transfer, Bed Mobility, ROM Treatment/Plan Treatment Plan: Continue Plan of Care Treatment Plan: Bed Mobility, Education, Functional Activity Sangeetha, Functional Strength, Gait, Safety, Therapeutic Exercise, Transfers Treatment Duration: October 22, 2021 Frequency: 6 times per week Estimated Hrs Per Day: .25 hour per day Patient and/or Family Agrees t: Yes Safety Risks/Education Patient Education: Gait Training, Transfer Techniques, Correct Positioning, Saf ety Issues Teaching Recipient: Patient Teaching Methods: Demonstration, Discussion Response to Teaching: Reinforcement Needed Time/GCodes Time In: 813 Time Out: 827 Total Billed Treatment Time: 14 Total Billed Treatment 1 visit FA TYRELL ERVIN PT Oct 16, 2021 08:49
--- NOTE | 2021-10-16 08:50 | Occupational Ther Daily Note ---
OT Current Status-Daily Note Subjective Pt in bed, family member present. Pt agreeable to OT Tx Mental Status/Objective Patient Orientation: Person, Confused Attachments: IV ADL-Treatment Therapy Code Descriptions/Definitions Functional [place] Measure: 0=Not Assessed/NA 4=Minimal Assistance 1=Total Assistance 5=Supervision or Setup 2=Maximal Assistance 6=Modified [place] 3=Moderate Assistance 7=Complete IndependenceSCALE: Activities may be completed with or without assistive devices. 7-Mcnphvkqls-pqpjlzz completes the activity by him/herself with no assistance from a helper. 5-Set-up or Clean-up Assistance-helper sets up or cleans up; patient completes activity. [place] assists only prior to or following the activity. 4-Supervision or Touching Assistance-helper provides verbal cues and/or touchin g/steadying and/or contact guard assistance as patient completes activity. Assistance may be provided throughout the activity or intermittently. 3-Partial/Moderate Assistance-helper does LESS THAN HALF the effort. [place] lifts, holds or supports trunk or limbs, but provides less than half the effort. 2-Substantial/Maximal Assistance-helper does MORE THAN HALF the effort. [place] lifts or holds trunk or limbs and provides more than half the effort. 5-Masrdhipm-flzzud does ALL the effort. Patient does none of the effort to complete the activity. Or, the assistance of 2 or more helpers is required for the patient to complete the activity. If activity was not attempted, code reason: 7-Patient Refused. 9-Not Applicable-not attempted and the patient did not perform the activity before the current illness, exacerbation or injury. 10-Not Attempted due to Environmental Limitations-(lack of equipment, weather restraints, etc.). 88-Not Attempted due to Medical Conditions or Safety Concerns. Eating (QC): 3 On/Off Footwear: 1 Other Treatment Pt in bed, agreeable to therapy session. Pt's nurse provided medications, assistance to place pills in mouth then assistance to bring straw to mouth. Pt transferred supine to sit EOB (mod A supine to sit, min A to maintain sitting balance due to retropulsion), then used FWW to transfer to recliner (min A sit to stand, min A to take several steps to recliner, cues for hand placement and safety). OT set up pt's' breakfast, cutting food and opening containers. Pt attempted to use fork but had difficulty with coordination. Pt requires some assistance with bringing food to mouth. Post tx, pt up in recliner, call light in reach and all needs met, chair alarm activated. Education OT Patient Education: Correct positioning, Energy conservation, Modified ADL techniques, Progress toward Goal/Update tx plan, Purpose of tx/functional activities, Rehab process Teaching Recipient: Patient Teaching Methods: Discussion Response to Teaching: Verbalize Understanding OT Status Controller Goals Alf Goals Time Frame: November 04, 2021 Eating (QC): 4 Oral Hygiene (QC): 4 Toileting Hygiene (QC): 4 Shower/Bathe Self (QC): 4 Upper Body Dressing (QC): 4 Lower Body Dressing (QC): 4 On/Off Footwear (QC): 4 1=Demonstrate adherence to instructed precautions during ADL tasks. 2=Patient will verbalize/demonstrate understanding of assistive devices/modifications for ADL. 3=Patient will improve strength/tolerance for activity to enable patient to perform ADL's. OT Education/Plan Problem List/Assessment Assessment: Decreased Activ Tolerance, Decreased UE Strength, Impaired Funct Balance, Impaired I ADL's, Impaired Self-Care Skills Discharge Recommendations Plan/Recommendations: Continue POC Treatment Plan/Plan of Care Patient would benefit from OT for education, treatment and training to promote independence in ADL's, mobility, safety and/or upper extremity function for ADL's. Plan of Care: ADL Retraining, Cognitive Retraining, Functional Mobility, Group Exercise/Act as Ind, UE Funct Exercise/Act Treatment Duration: November 04, 2021 Frequency: 3 times per week (3-5x/week) Estimated Hrs Per Day: .25 hour per day Rehab Potential: Guarded Time/GCodes Start Time: 08:14 Stop Time: 08:29 Total Time Billed (hr/min): 15 Billed Treatment Time 1, FABBY JAMES CAAL OT Oct 16, 2021 08:50
[2021-10-16 11:00] VITALS: BP 185/80
--- NOTE | 2021-10-16 11:21 | Progress Note ---
Subjective Subjective/Events-last exam Patient up sitting in chair this AM. Early this AM patient pulled out her cool catheter. She is still having episodes of confusion. Tolerating PO diet. Review of Systems Pulmonary: Cough Cardiovascular: No: Chest Pain, Edema Neurological: Weakness, Incoordination, Confusion Objective Exam Last Set of Vital Signs Vital Signs Date Time Temp Pulse Resp B/P (MAP) Pulse Ox O2 Delivery O2 Flow Rate FiO2 10/16/21 08:37 Room Air 0.00 10/16/21 08:00 91 10/16/21 07:13 37.9 103 20 183/79 (113) 10/14/21 07:55 21 Capillary Refill : Less Than 3 Seconds I&O Intake and Output 10/16/21 00:00 Intake Total 790 ml Output Total 1985 ml Balance -1195 ml Intake Oral 540 ml IV Total 250 ml Output Urine Total 1985 ml General: Alert, Oriented X3 (but forgetful and requires cues), No Acute Distress Lungs: Clear to Auscultation, Normal Air Movement Heart: Regular Rate, No Murmurs Abdomen: Normal Bowel Sounds, Soft, No Tenderness, No Masses Extremities: Other (1+ pitting edema bilaterally) Neuro: Normal Speech (slow to answer some complex questions) Results/Procedures Lab Laboratory Tests 10/15/21 17:41: Glucometer 208H 10/15/21 23:50: Glucometer 200H 10/16/21 05:40: White Blood Count 9.7, Red Blood Count 4.21, Hemoglobin 12.6, Hematocrit 37, Mean Corpuscular Volume 88, Mean Corpuscular Hemoglobin 30, Mean Corpuscular Hem oglobin Concent 34, Red Cell Distribution Width 12.0, Platelet Count 187, Mean Platelet Volume 11.4, Immature Granulocyte % (Auto) 1, Neutrophils (%) (Auto) 75, Lymphocytes (%) (Auto) 14, Monocytes (%) (Auto) 10, Eosinophils (%) (Auto) 0, Basophils (%) (Auto) 0, Neutrophils # (Auto) 7.3, Lymphocytes # (Auto) 1.4, Monocytes # (Auto) 0.9, Eosinophils # (Auto) 0.0, Basophils # (Auto) 0.0, Immature Granulocyte # (Auto) 0.1, Sodium Level 141, Potassium Level 2.9L, Chloride Level 102, Carbon Dioxide Level 19L, Anion Gap 20H, Blood Urea Nitrogen 8, Creatinine 0.69, Estimat Glomerular Filtration Rate 93, BUN/Creatinine Ratio 12, Glucose Level 188H, Calcium Level 8.5, Phosphorus Level 2.4, Magnesium Level 1.3L, Triglycerides Level 91 10/16/21 11:01: Glucometer 273H Microbiology 10/11/21 MRSA Screen - Final, Complete MRSA not isolated 10/11/21 Gram Stain - Final, Complete 10/11/21 CSF Culture - Final, Complete No growth 10/11/21 Blood Culture - Preliminary, Resulted No growth Assessment/Plan Assessment/Plan (1) Delirium Status: Acute Assessment & Plan: - Will start PO Haldol to help with the delirium, will continue to monitor, discussed normal MRI with family (2) Altered mental status Status: Acute Assessment & Plan: - Patient had 1 episode of fever, no source of infection found, Normal LP, CT normal: no acute findings, consider MRI if patient does not start to wake up when blood pressure is controlled 10/13: No change in mental status, will try and decrease opiates, consider repeat CT scan in AM if still intubated, no signs of infection, likely encephalopathy 07/22 hypertensive crisis 10/14: Patient extubated this AM, She is AOx3 with slowed mentation 10/15: Still having slowed mentation, MRI today which showed chronic microvascular changes, no acute ischemia or hemorrhage Qualifiers: Qualified Codes: R41.82 - Altered mental status, unspecified (3) Hypertensive emergency Status: Acute Assessment & Plan: - Cardene drip, permissive HTN and will titrate blood pressure down slowly 10/14: Will start PO meds when she passes the swallow study and titrate cardene down 10/15: Blood pressure better controlled 10/16: Increased Lisinopril today to 40 mg daily (4) Fever Status: Resolved Assessment & Plan: - No source of infection Qualifiers: Qualified Codes: R50.9 - Fever, unspecified (5) Lactic acidosis Status: Resolved (6) Low TSH level Status: Acute Assessment & Plan: - T3 pending, normal T4 (7) Hypokalemia Status: Acute Assessment & Plan: - ICU protocol, replace and repeat CMP (8) DVT prophylaxis Status: Acute Assessment & Plan: - Lovenox (9) Discharge planning issues Assessment & Plan: 10/12: Spoke with QUINN Das today at 1400, she was discussing the possiblility of transfer to hospital with neurology. Discussed that at this point they would not likely be doing anything different that we can not do here, she was agreeable to work on getting patient extubated and continuing to titrate blood pressure. Will update QUINN in the AM. 10/15: QUINN Das was present today, discussed SNF vs acute rehab RENEE EAST MD Oct 16, 2021 11:21
[2021-10-16] MEDS ORDERED: lisINopril 20 MG (PRINIVIL) TABLET PO ONE (11:30)
[2021-10-16] MEDS: HALOPERIDOL 5 MG (HALDOL) TAB PO PRN ×2 (11:34→19:18)
--- NOTE | 2021-10-16 13:58 | Physician Query Clarification ---
Physician Query-General Query to Physician: The medical record reflects the following clinical scenario: The patient, in the setting of History/Risk factors, Fevers, No Hx of home 02, Clinical Findings Documentation of "intubated for Airway protection" by one physician, 02 sats 94% on 2L on admission, Temps up to 38.8, RR 16-26 prior to intubation, SpO2 89 to 92% on 2L after extubated (P/F 204-221) 02 up to 5L per oxymask after extubation Treatment Intubation and Vent management to the , Supplemental 02 up to 2-5L for 2 days, Cetriaxone IV Question: Do you agree with the impression of Acute Respiratory Failure per Dr. Maria T Bain? 1. Yes; will document Acute Respiratory Failure, present on admission in the Pr ogress Notes 2. Yes; will document Acute Respiratory Failure, not present on admission in the Progress Notes 3. No; will continue current documentation in the Progress Notes 4. Other; will document explanation of clinical findings 5. Clinically undetermined; no explanation for clinical findings Please clarify and document your clinical opinion in the Progress Notes and Discharge Summary including the definitive and/or presumptive diagnosis, (suspected or probable), related to the above clinical findings. Please include clinical findings supporting your diagnosis. In responding to this query, please exercise your independent professional judgment. The purpose of this communication is to more accurately reflect the complexity of your patients condition. The fact that a question is asked does not imply that any particular answer is desired or expected. Please remember a lack of response to the above will prompt a phone page by CDI/coding staff Thank you for timely response to this clarification. Kamini Abdi MSN, RN Clinical Machine Sign Writer [phone] [email or web address] PHYSICIAN RESPONSE: Based on the clinical findings in the record, please respond to the query above on this document as an addendum. Physician Response: Physician Response yes If you have questions please contact: Travel Freight And Passenger Agent: Ext: Thank you for your time and cooperation. Clinical Machine Sign Writer/Travel Freight And Passenger Agent This is a permanent part of the medical record KAMINI ABDI Oct 16, 2021 13:58 RENEE EAST MD October 20, 2021 20:29
[2021-10-16 15:08] VITALS: BP 160/80
[2021-10-16 19:10] VITALS: BP 178/82
[2021-10-16] MEDS: KCL 20 MEQ TAB (K-DUR) PO SCH (19:18)
[2021-10-16] MEDS ORDERED: WATER (STERILE) FOR INJ 10 ML BTL INJ SCH ×2 (20:45)
[2021-10-16] MEDS ORDERED: ZIPRASIDONE 20 MG INJ (GEODON) VIAL IM PRN (20:45)
[2021-10-16] MEDS ORDERED: ZIPRASIDONE 20 MG INJ (GEODON) VIAL IM ONE ×2 (20:45→20:50)
[2021-10-16] MEDS ORDERED: LORazepam INJ 2 MG/ML (ATIVAN) VIAL IVP PRN (20:45)
[2021-10-16] MEDS ORDERED: WATER (STERILE) FOR INJECTION 10 ML ONE (20:49)
[2021-10-16 23:45] VITALS: BP 135/93
[2021-10-17 03:48] VITALS: BP 188/86
[2021-10-17 05:49] LABS: BASOPHILS # (AUTO) 0.1 10^3/uL (0.0-0.1); BASOPHILS % (AUTO) 1 % (0-10); EOSINOPHILS # (AUTO) 0.1 10^3/uL (0.0-0.3); EOSINOPHILS % (AUTO) 1 % (0-10); HEMATOCRIT 37 % (35-52); HEMOGLOBIN 12.7 g/dL (11.5-16.0); LYMPHOCYTES # (AUTO) 1.8 10^3/uL (1.0-4.0); LYMPHOCYTES % (AUTO) 20 % (12-44); MEAN CORPUSCULAR HEMOGLOBIN 30 pg (25-34); MEAN CORPUSCULAR HGB CONC 34 g/dL (32-36); MEAN CORPUSCULAR VOLUME 88 fL (80-99); MEAN PLATELET VOLUME 11.5 fL (9.0-12.2); MONOCYTES # (AUTO) 1.1 10^3/uL (0.0-1.0); MONOCYTES % (AUTO) 12 % (0-12); NEUTROPHILS % (AUTO) 67 % (42-75); PLATELET COUNT 168 10^3/uL (130-400)
[2021-10-17 05:54] LABS: POTASSIUM 2.9 MMOL/L (3.6-5.0)
[2021-10-17 05:55] LABS: CALCIUM 8.7 MG/DL (8.5-10.1)
[2021-10-17 06:00] LABS: CREATININE SERUM 0.69 MG/DL (0.60-1.30)
[2021-10-17 06:02] LABS: MAGNESIUM 1.5 MG/DL (1.6-2.4)
[2021-10-17] MEDS: inSUlin ASPART (NovoLOG) 1 UNIT/0.01 ML (CHARGE PER UNIT) SC SCH ×4 (06:19→20:51)
[2021-10-17 07:48] VITALS: BP 182/78
[2021-10-17] MEDS: KCL 20 MEQ TAB (K-DUR) PO SCH ×2 (08:07→19:20)
[2021-10-17] MEDS: HALOPERIDOL 5 MG (HALDOL) TAB PO PRN (08:07)
[2021-10-17] MEDS: lisINopril 20 MG (PRINIVIL) TABLET PO SCH (08:08)
--- NOTE | 2021-10-17 08:31 | Physical Therapy Daily Note ---
PT Daily Note-Current Subjective States that she is feeling better. Pain Numeric Pain Scale: 0-No Pain Transfers SCALE: Activities may be completed with or without assistive devices. 3-Calhrlhhpz-xcexdhy completes the activity by him/herself with no assistance from a helper. 5-Set-up or Clean-up Assistance-helper sets up or cleans up; patient completes activity. [place] assists only prior to or following the activity. 4-Supervision or Touching Assistance-helper provides verbal cues and/or touching/steadying and/or contact guard assistance as patient completes activity. Assistance may be provided throughout the activity or intermittently. 3-Partial/Moderate Assistance-helper does LESS THAN HALF the effort. [place] lifts, holds or supports trunk or limbs, but provides less than half the effort. 2-Substantial/Maximal Assistance-helper does MORE THAN HALF the effort. [place] lifts or holds trunk or limbs and provides more than half the effort. 3-Qljkhzjoz-aivjoj does ALL the effort. Patient does none of the effort to complete the activity. Or, the assistance of 2 or more helpers is required for the patient to complete the activity. If activity was not attempted, code reason: 7-Patient Refused. 9-Not Applicable-not attempted and the patient did not perform the activity before the current illness, exacerbation or injury. 10-Not Attempted due to Environmental Limitations-(lack of equipment, weather restraints, etc.). 88-Not Attempted due to Medical Conditions or Safety Concerns. Roll Left & Right (QC): 4 Sit to Stand (QC): 5 Chair/Bhs-im-Gsrcb Xfer(QC): 4 Gait Training Distance: 10 Walk 10 feet (QC): 5 Gait Persons Needed: 1 Gait Assistive Device: FWW Exercises Seated Therapy Exercises: LE Protocol Seated Reps: 20 Assessment Current Status: Excellent Progress Patient did well with transfers and gait today. PT Environmental Education Specialist Goals Retirement Goals PT Environmental Education Specialist Goals Time Frame: October 22, 2021 Roll Left & Right (QC): 3 Sit to Lying (QC): 3 Lying-Sitting on Side/Bed(QC): 3 Sit to Stand (QC): 3 Chair/Tns-hb-Ymecs Xfer(QC): 3 Walk 10 feet (QC): 3 PT Plan Treatment/Plan Treatment Plan: Continue Plan of Care Treatment Plan: Bed Mobility, Education, Functional Activity Sangeetha, Functional Strength, Gait, Safety, Therapeutic Exercise, Transfers Treatment Duration: October 22, 2021 Frequency: 6 times per week Estimated Hrs Per Day: .25 hour per day Patient and/or Family Agrees t: Yes Time/GCodes Time In: 814 Time Out: 824 Total Billed Treatment Time: 10 Total Billed Treatment 1, FA x 10' SHIRLEY ESCAMILLA PT Oct 17, 2021 08:31
--- NOTE | 2021-10-17 10:06 | Progress Note - Hospitalist ---
Subjective HPI/CC On Admission Date Seen by Provider: Oct 17, 2021 Time Seen by Provider: 09:30 Subjective/Events-last exam Patient doing a lot better Less confused Blood pressure elevated so added more medications May be a candidate for inpatient rehab Hernándon ordered for delirium Family at the bedside Voiding well Eating and drinking well Review of Systems General: Fatigue, Malaise Neurological: Confusion Objective Exam Vital Signs Vital Signs Date Time Temp Pulse Resp B/P (MAP) Pulse Ox O2 Delivery O2 Flow Rate FiO2 10/17/21 11:00 37.0 95 18 178/70 (106) 99 Nasal Cannula 2.00 10/14/21 07:55 21 Capillary Refill : Less Than 3 Seconds General Appearance: No Apparent Distress, WD/WN, Chronically ill Respiratory: Lungs Clear, Normal Breath Sounds Cardiovascular: Regular Rate, Rhythm Neurologic/Psychiatric: Alert, Oriented x3, No Motor/Sensory Deficits, Normal Mood/Affect Results/Procedures Lab Laboratory Tests 10/17/21 05:35 10/17/21 10:05 Patient resulted labs reviewed. Assessment/Plan Assessment and Plan Assess & Plan/Chief Complaint Assessment: Altered mental status Malignant hypertension Delirium Plan: Lovenox for DVT prophylaxis Have blood pressure meds PT and OT Critical Care Critically Ill Patient RODRIBRIAN ELAM Oct 17, 2021 10:06
[2021-10-17 10:13] LABS: BASOPHILS # (AUTO) 0.1 10^3/uL (0.0-0.1); BASOPHILS % (AUTO) 0 % (0-10); EOSINOPHILS # (AUTO) 0.1 10^3/uL (0.0-0.3); EOSINOPHILS % (AUTO) 1 % (0-10); HEMATOCRIT 38 % (35-52); HEMOGLOBIN 12.9 g/dL (11.5-16.0); LYMPHOCYTES # (AUTO) 1.2 10^3/uL (1.0-4.0); LYMPHOCYTES % (AUTO) 11 % (12-44); MEAN CORPUSCULAR HEMOGLOBIN 31 pg (25-34); MEAN CORPUSCULAR HGB CONC 34 g/dL (32-36); MEAN CORPUSCULAR VOLUME 89 fL (80-99); MEAN PLATELET VOLUME 11.2 fL (9.0-12.2); MONOCYTES % (AUTO) 9 % (0-12); NEUTROPHILS % (AUTO) 79 % (42-75); PLATELET COUNT 205 10^3/uL (130-400); WHITE BLOOD COUNT 11.4 10^3/uL (4.3-11.0)
[2021-10-17 11:00] VITALS: BP 178/70
[2021-10-17] MEDS: amLODIPine 5 MG (NORVASC) TAB PO SCH ×2 (11:17→19:20)
[2021-10-17] MEDS: MICONAZOLE 2% POWDER (DESENEX AF) 90 GM TOP SCH ×2 (11:17→19:20)
[2021-10-17] MEDS: ENOXAPARIN 40 MG/0.4 ML (LOVENOX) SYR SC SCH (13:48)
[2021-10-17 16:02] VITALS: BP 132/68
[2021-10-17 20:08] VITALS: BP 180/81
[2021-10-17] MEDS: cloNIDine 0.1 MG (CATAPRES) TAB PO PRN (23:24)
[2021-10-17 23:50] VITALS: BP 189/92
[2021-10-18 04:13] VITALS: BP 161/89
[2021-10-18] MEDS: inSUlin ASPART (NovoLOG) 1 UNIT/0.01 ML (CHARGE PER UNIT) SC SCH ×4 (06:01→20:41)
--- NOTE | 2021-10-18 06:25 | Progress Note - Hospitalist ---
Subjective HPI/CC On Admission Date Seen by Provider: October 18, 2021 Time Seen by Provider: 11:30 Subjective/Events-last exam Patient doing a lot better Delirium has cleared Moving around a lot better Family at the bedside Denies any pain except for left shoulder Will evaluate performance with therapy tomorrow Likely home health at discharge Review of Systems General: Fatigue, Malaise Objective Exam Vital Signs Vital Signs Date Time Temp Pulse Resp B/P (MAP) Pulse Ox O2 Delivery O2 Flow Rate FiO2 10/19/21 04:00 36.7 96 18 154/80 (104) 93 Nasal Cannula 2.00 10/14/21 07:55 21 Capillary Refill : Less Than 3 Seconds General Appearance: No Apparent Distress, WD/WN, Chronically ill Respiratory: Lungs Clear, Normal Breath Sounds Cardiovascular: Regular Rate, Rhythm Neurologic/Psychiatric: Alert, Oriented x3, Depressed Affect Results/Procedures Lab Laboratory Tests 10/18/21 07:00 Patient resulted labs reviewed. Assessment/Plan Assessment and Plan Assess & Plan/Chief Complaint Assessment: Altered mental status Malignant hypertension Delirium Plan: Lovenox for DVT prophylaxis Have blood pressure meds PT and OT 10/18/2021: Supportive care Blood sugar control Critical Care Critically Ill Patient BRIAN MACE DO October 18, 2021 06:25
[2021-10-18 07:11] LABS: BASOPHILS % (AUTO) 0 % (0-10); EOSINOPHILS # (AUTO) 0.1 10^3/uL (0.0-0.3); EOSINOPHILS % (AUTO) 1 % (0-10); HEMATOCRIT 39 % (35-52); LYMPHOCYTES # (AUTO) 1.9 10^3/uL (1.0-4.0); LYMPHOCYTES % (AUTO) 19 % (12-44); MEAN CORPUSCULAR HEMOGLOBIN 30 pg (25-34); MEAN CORPUSCULAR HGB CONC 34 g/dL (32-36); MEAN CORPUSCULAR VOLUME 89 fL (80-99); MONOCYTES # (AUTO) 0.8 10^3/uL (0.0-1.0); MONOCYTES % (AUTO) 8 % (0-12); NEUTROPHILS # (AUTO) 7.3 10^3/uL (1.8-7.8); NEUTROPHILS % (AUTO) 72 % (42-75); PLATELET COUNT 231 10^3/uL (130-400)
[2021-10-18 07:30] VITALS: BP 137/80
[2021-10-18 07:38] LABS: ALBUMIN 3.6 GM/DL (3.2-4.5); BILIRUBIN,TOTAL 0.8 MG/DL (0.1-1.0); CALCIUM 9.5 MG/DL (8.5-10.1); CREATININE SERUM 0.76 MG/DL (0.60-1.30); POTASSIUM 3.3 MMOL/L (3.6-5.0); TOTAL PROTEIN 7.6 GM/DL (6.4-8.2)
[2021-10-18] MEDS: amLODIPine 5 MG (NORVASC) TAB PO SCH ×2 (08:16→20:05)
[2021-10-18] MEDS: lisINopril 20 MG (PRINIVIL) TABLET PO SCH (08:16)
[2021-10-18] MEDS: MICONAZOLE 2% POWDER (DESENEX AF) 90 GM TOP SCH ×2 (08:18→20:06)
[2021-10-18 11:20] VITALS: BP 162/80
[2021-10-18] MEDS: ENOXAPARIN 40 MG/0.4 ML (LOVENOX) SYR SC SCH (11:40)
[2021-10-18 15:41] VITALS: BP 186/82
[2021-10-18] MEDS: cloNIDine 0.1 MG (CATAPRES) TAB PO PRN (15:50)
[2021-10-18 20:00] VITALS: BP 158/73
[2021-10-19] VITALS: BP 153/78
[2021-10-19 04:00] VITALS: BP 154/80
[2021-10-19] MEDS: inSUlin ASPART (NovoLOG) 1 UNIT/0.01 ML (CHARGE PER UNIT) SC SCH ×2 (05:33→12:04)
[2021-10-19 05:51] LABS: BASOPHILS % (AUTO) 0 % (0-10); EOSINOPHILS # (AUTO) 0.1 10^3/uL (0.0-0.3); EOSINOPHILS % (AUTO) 1 % (0-10); HEMATOCRIT 34 % (35-52); HEMOGLOBIN 11.7 g/dL (11.5-16.0); LYMPHOCYTES % (AUTO) 26 % (12-44); MEAN CORPUSCULAR HEMOGLOBIN 30 pg (25-34); MEAN CORPUSCULAR HGB CONC 34 g/dL (32-36); MEAN CORPUSCULAR VOLUME 89 fL (80-99); MEAN PLATELET VOLUME 11.5 fL (9.0-12.2); MONOCYTES # (AUTO) 0.9 10^3/uL (0.0-1.0); MONOCYTES % (AUTO) 12 % (0-12); NEUTROPHILS # (AUTO) 4.8 10^3/uL (1.8-7.8); NEUTROPHILS % (AUTO) 61 % (42-75); PLATELET COUNT 233 10^3/uL (130-400); WHITE BLOOD COUNT 7.8 10^3/uL (4.3-11.0)
[2021-10-19 05:59] LABS: ALBUMIN 3.3 GM/DL (3.2-4.5); POTASSIUM 3.1 MMOL/L (3.6-5.0)
[2021-10-19 06:02] LABS: TOTAL PROTEIN 7.1 GM/DL (6.4-8.2)
[2021-10-19 06:03] LABS: BILIRUBIN,TOTAL 0.7 MG/DL (0.1-1.0)
[2021-10-19 06:05] LABS: CREATININE SERUM 0.72 MG/DL (0.60-1.30)
--- NOTE | 2021-10-19 06:14 | Progress Note - Hospitalist ---
Subjective HPI/CC On Admission Date Seen by Provider: October 19, 2021 Time Seen by Provider: 09:30 Objective Exam Vital Signs Vital Signs Date Time Temp Pulse Resp B/P (MAP) Pulse Ox O2 Delivery O2 Flow Rate FiO2 10/19/21 13:07 36.9 97 24 153/74 92 Room Air 2.00 10/14/21 07:55 21 Capillary Refill : NONE Results/Procedures Lab Laboratory Tests 10/19/21 05:23 Patient resulted labs reviewed. Assessment/Plan Assessment and Plan Assess & Plan/Chief Complaint Assessment: Altered mental status Malignant hypertension Delirium Plan: Lovenox for DVT prophylaxis Have blood pressure meds PT and OT 10/18/2021: Supportive care Blood sugar control Critical Care Critically Ill Patient BRIAN MACE DO October 19, 2021 06:14
[2021-10-19 07:55] VITALS: BP 168/74
[2021-10-19] MEDS ORDERED: KCL 20 MEQ TAB (K-DUR) PO SCH ×2 (08:00→09:45)
--- NOTE | 2021-10-19 09:42 | Physical Therapy Daily Note ---
PT Daily Note-Current Subjective Patient agrees to PT. Family present. Mental Status Patient Orientation: Person, Time Attachments: Oxygen Transfers SCALE: Activities may be completed with or without assistive devices. 0-Qeswitfcvq-rilioat completes the activity by him/herself with no assistance from a helper. 5-Set-up or Clean-up Assistance-helper sets up or cleans up; patient completes activity. [place] assists only prior to or following the activity. 4-Supervision or Touching Assistance-helper provides verbal cues and/or touching/steadying and/or contact guard assistance as patient completes activity. Assistance may be provided throughout the activity or intermittently. 3-Partial/Moderate Assistance-helper does LESS THAN HALF the effort. [place] li fts, holds or supports trunk or limbs, but provides less than half the effort. 2-Substantial/Maximal Assistance-helper does MORE THAN HALF the effort. [place] lifts or holds trunk or limbs and provides more than half the effort. 9-Owccxoeim-cthgex does ALL the effort. Patient does none of the effort to complete the activity. Or, the assistance of 2 or more helpers is required for the patient to complete the activity. If activity was not attempted, code reason: 7-Patient Refused. 9-Not Applicable-not attempted and the patient did not perform the activity before the current illness, exacerbation or injury. 10-Not Attempted due to Environmental Limitations-(lack of equipment, weather restraints, etc.). 88-Not Attempted due to Medical Conditions or Safety Concerns. Lying to Sitting/Side of Bed(Q: 6 Sit to Stand (QC): 4 Chair/Spy-bh-Ssnqp Xfer(QC): 4 Gait Training Distance: 750' Walk 10 feet (QC): 4 Walk 50 ft with 2 Turns(QC): 4 Walk 150 ft (QC): 4 Gait Assistive Device: FWW safe and functional with no deviation (SBA) Exercises Supine Ex: Ankle pumps, Quad Set, Heel Slides, Straight leg raise Supine Reps: 17 Assessment Patient up in recliner with needs met. Patient much improved with distance and endurance. Continue to address functional strength and mobility. PT Senior Care Goals Clinical Appeals Rn Goals PT Clinical Appeals Rn Goals Time Frame: October 22, 2021 Roll Left & Right (QC): 3 Sit to Lying (QC): 3 Lying-Sitting on Side/Bed(QC): 3 Sit to Stand (QC): 3 Chair/Haa-yc-Kddim Xfer(QC): 3 Walk 10 feet (QC): 3 PT Plan Treatment/Plan Treatment Plan: Continue Plan of Care Treatment Plan: Bed Mobility, Education, Functional Activity Sangeetha, Functional Strength, Gait, Safety, Therapeutic Exercise, Transfers Treatment Duration: October 22, 2021 Frequency: 6 times per week Estimated Hrs Per Day: .25 hour per day Patient and/or Family Agrees t: Yes Time/GCodes Time In: 831 Time Out: 846 Total Billed Treatment Time: 15 Total Billed Treatment 1 visit FA 15 min ALLISON ARENAS PT October 19, 2021 09:42
--- NOTE | 2021-10-19 10:35 | Occupational Ther Daily Note ---
OT Current Status-Daily Note Subjective Pt alert, sitting in recliner. Pt agrees to therapy. No c/o pain. Mental Status/Objective Patient Orientation: Person, Place Attachments: IV ADL-Treatment After set up, pt able to don/doff socks/shoes and upper body clothing. Pt able to don/doff lower body clothing with SBA for safety, no LOB noted when hiking pants over hips, did not use AD to stabilize in standing to hike pants. After therapy, pt sitting in recliner with call light/phone in reach. All needs met in room. Safety measures in place. Family present in room. Therapy Code Descriptions/Definitions Functional [place] Measure: 0=Not Assessed/NA 4=Minimal Assistance 1=Total Assistance 5=Supervision or Setup 2=Maximal Assistance 6=Modified [place] 3=Moderate Assistance 7=Complete IndependenceSCALE: Activities may be completed with or without assistive devices. 5-Ssghucbgyj-ijziued completes the activity by him/herself with no assistance from a helper. 5-Set-up or Clean-up Assistance-helper sets up or cleans up; patient completes activity. [place] assists only prior to or following the activity. 4-Supervision or Touching Assistance-helper provides verbal cues and/or touching/steadying and/or contact guard assistance as patient completes activity. Assistance may be provided throughout the activity or intermittently. 3-Partial/Moderate Assistance-helper does LESS THAN HALF the effort. [place] lifts, holds or supports trunk or limbs, but provides less than half the effort. 2-Substantial/Maximal Assistance-helper does MORE THAN HALF the effort. [place] lifts or holds trunk or limbs and provides more than half the effort. 8-Fudweqonb-fryqyf does ALL the effort. Patient does none of the effort to complete the activity. Or, the assistance of 2 or more helpers is required for the patient to complete the activity. If activity was not attempted, code reason: 7-Patient Refused. 9-Not Applicable-not attempted and the patient did not perform the activity before the current illness, exacerbation or injury. 10-Not Attempted due to Environmental Limitations-(lack of equipment, weather restraints, etc.). 88-Not Attempted due to Medical Conditions or Safety Concerns. Upper Body Dressing (QC): 5 Lower Body Dressing (QC): 4 On/Off Footwear: 5 OT Penitentiary Goals Penitentiary Goals Time Frame: November 04, 2021 Eating (QC): 4 Oral Hygiene (QC): 4 Toileting Hygiene (QC): 4 Shower/Bathe Self (QC): 4 Upper Body Dressing (QC): 4 Lower Body Dressing (QC): 4 On/Off Footwear (QC): 4 1=Demonstrate adherence to instructed precautions during ADL tasks. 2=Patient will verbalize/demonstrate understanding of assistive devices/modifications for ADL. 3=Patient will improve strength/tolerance for activity to enable patient to perform ADL's. OT Education/Plan Problem List/Assessment Assessment: Decreased Activ Tolerance, Decreased UE Strength, Impaired Self- Care Skills Discharge Recommendations Plan/Recommendations: Continue POC Treatment Plan/Plan of Care Patient would benefit from OT for education, treatment and training to promote independence in ADL's, mobility, safety and/or upper extremity function for ADL's. Plan of Care: ADL Retraining, Cognitive Retraining, Functional Mobility, Group Exercise/Act as Ind, UE Funct Exercise/Act Treatment Duration: November 04, 2021 Frequency: 3 times per week (3-5x/week) Estimated Hrs Per Day: .25 hour per day Rehab Potential: Guarded Time/GCodes Start Time: 10:10 Stop Time: 10:33 Total Time Billed (hr/min): 23 Billed Treatment Time 1 visit-ADL 2 (23 min) ITALO ABARCA October 19, 2021 10:35
[2021-10-19] MEDS ORDERED: AMLO-250 PO (10:36)
[2021-10-19] MEDS ORDERED: HYDR25TA4 PO (10:36)
[2021-10-19] MEDS ORDERED: POTA-169 PO (10:36)
[2021-10-19] MEDS ORDERED: GLMP2T PO (10:36)
[2021-10-19] MEDS ORDERED: MICO90PO TOP (10:36)
--- NOTE | 2021-10-19 10:38 | D/C HH Face to Face Order ---
D/C Face to Face Orders Reconcile Patient Problems Problems Reviewed?: Yes Instructions for Patient Via [facility], Patient Instructions/FollowUp: PCP this week Physician to follow Patient: [facility] Discharge Diet for Home: ADA Diet Patient Problems: Delirium Patient Data-Allergies,Ht & Wt Patient Allergies: Coded Allergies: No Known Drug Allergies (Verified , 05/02/07) Home Health Need/Face to Face Date of Face to Face: October 19, 2021 Clinical Findings: Instability, Muscle weakness, Unsteady gait I have seen Pt ripu-pw-xpwt: Yes Discharged To: Home Diagnosis/Conditions: Delirium Patient is Homebound due to: CognItive deficits, Melani fall risk due to instabilty, Muscle weakness Homebound Status Due to the above stated illness, injury or surgical procedure (medical condition or diagnosis) and associated clinical findings, the patient is homebound because of his/her inability to leave home except with aid of a supportive device and/or person AND leaving the home requires a considerable and taxing effort or is medically contraindicated. Pt req the following assistanc: Walker Home Health Nursing Orders Home Health Services Order: Nursing Services, Boiler Reliner-Evaluate & Treat, Physical Therapy-Evaluate & Treat Home Health Infusion Therapy Line Start Date: Oct 11, 2021 Certify Stmt I certify that this patient is under my care and that I, a nurse practitioner or a physician; a bar assistant working with me, had a face to face encounter that - meets the physician face to face encounter requirements with this patient as dated. BRIAN MACE DO October 19, 2021 10:38
[2021-10-19] MEDS ORDERED: CLN.1T PO (10:40)
[2021-10-19] MEDS: amLODIPine 5 MG (NORVASC) TAB PO SCH (10:43)
[2021-10-19] MEDS: MICONAZOLE 2% POWDER (DESENEX AF) 90 GM TOP SCH (10:44)
[2021-10-19] MEDS: lisINopril 20 MG (PRINIVIL) TABLET PO SCH (10:44)
[2021-10-19] MEDS ORDERED: GLIMEPIRIDE 1 MG (AMARYL) TAB PO NR (10:45)
[2021-10-19 11:50] VITALS: BP 153/74
[2021-10-19] MEDS: ENOXAPARIN 40 MG/0.4 ML (LOVENOX) SYR SC SCH (12:07)
[2021-10-19 13:07] VITALS: BP 153/74
--- NOTE | 2021-10-19 19:52 | Discharge Summary ---
Discharge Summary Hospital Course Was the Problem List Reviewed?: Yes Problems/Dx: (1) Hypertensive emergency Status: Acute (2) Delirium Status: Acute (3) Lactic acidosis Status: Resolved Hospital Course Date of Admission: Oct 11, 2021 at 15:11 Admission Diagnosis : Family Physician/Provider: Heather Ivy Date of Discharge: 10/19/21 Discharge Diagnosis: Hypertensive urgency, diabetes udf-iz-oehkqay, delirium, debility Hospital Course: Patient had a lengthy hospital course which started with hypertensive urgency and hyperglycemia. Patient ultimately remained very confused but along with antipsychotics and supportive care that did pass. PT and OT consulted which helped regain function. Multiple blood pressure medications and the addition of oral hypoglycemic agent helped both blood pressure and diabetes respectively. Overall very complicated issues required home health to help regain function. Labs and Pending Lab Test: Laboratory Tests 10/18/21 20:23: Glucometer 365H 10/19/21 05:22: Glucometer 249H 10/19/21 05:23: White Blood Count 7.8, Red Blood Count 3.87, Hemoglobin 11.7, Hematocrit 34L, Mean Corpuscular Volume 89, Mean Corpuscular Hemoglobin 30, Mean Corpuscular Hemoglobin Concent 34, Red Cell Distribution Width 12.1, Platelet Count 233, Mean Platelet Volume 11.5, Immature Granulocyte % (Auto) 0, Neutrophils (%) (Auto) 61, Lymphocytes (%) (Auto) 26, Monocytes (%) (Auto) 12, Eosinophils (%) (Auto) 1, Basophils (%) (Auto) 0, Neutrophils # (Auto) 4.8, Lymphocytes # (Auto) 2.0, Monocytes # (Auto) 0.9, Eosinophils # (Auto) 0.1, Basophils # (Auto) 0.0, Immature Granulocyte # (Auto) 0.0, Sodium Level 136, Potassium Level 3.1L, Chloride Level 95L, Carbon Dioxide Level 25, Anion Gap 16H, Blood Urea Nitrogen 12, Creatinine 0.72, Estimat Glomerular Filtration Rate 90, BUN/Creatinine Ratio 17, Glucose Level 238H, Calcium Level 9.0, Corrected Calcium 9.6, Total Bilirubin 0.7, Aspartate Amino Transf (AST/SGOT) 16, Alanine Aminotransferase (ALT/SGPT) 20, Alkaline Phosphatase 79, Total Protein 7.1, Albumin 3.3 10/19/21 10:53: Glucometer 289H Microbiology 10/11/21 MRSA Screen - Final, Complete MRSA not isolated 10/11/21 Gram Stain - Final, Complete 10/11/21 CSF Culture - Final, Complete No growth 10/11/21 Blood Culture - Final, Complete No growth Home Meds Active Clonidine HCl 0.1 Mg Tablet 0.1 Mg PO TID Amaryl (Glimepiride) 2 Mg Tab 2 Mg PO DAILY Lotrimin AF (Miconazole Nitrate) 2 % Powder 0 Gm TOP BID Hydrochlorothiazide 25 Mg Tablet 25 Mg PO DAILY Klor-Con M20 (Potassium Chloride) 20 Meq Tab.er.prt 20 Meq PO DAILY Amlodipine Besylate 5 Mg Tablet 5 Mg PO BID Reported Metformin HCl 1,000 Mg Tablet 1,000 Mg PO BID LAST FILLED 04-17-2021 #60/30 DAY SUPPLY Lisinopril-Hctz 20-25 mg Tab (Lisinopril/Hydrochlorothiazide) 20 Mg-25 Mg Tablet 1 Ea PO DAILY LAST FILLED 04-04-2021 #90/90 DAY SUPPLY Assessment/Pt Instructions PCP this week Discharge Planning: <30 minutes discharge planning Discharge Instructions Discharge Diet: ADA Diet Discharge Physical Examination Vital Signs Vital Signs Date Time Temp Pulse Resp B/P (MAP) Pulse Ox O2 Delivery O2 Flow Rate FiO2 10/19/21 13:07 36.9 97 24 153/74 92 Room Air 2.00 10/14/21 07:55 21 General Appearance: No Apparent Distress Respiratory: Lungs Clear, Normal Breath Sounds Neurologic/Psychiatric: Alert, Oriented x3, Depressed Affect Allergies: Coded Allergies: No Known Drug Allergies (Verified , 05/02/07) Discharge Summary Date of Admission Oct 11, 2021 at 15:11 Date of Discharge October 19, 2021 at 13:11 Discharge Date: October 19, 2021 Discharge Diagnosis Assessment: Altered mental status Malignant hypertension Delirium Plan: Lovenox for DVT prophylaxis Have blood pressure meds PT and OT 10/18/2021: Supportive care Blood sugar control BRIAN MACE DO October 19, 2021 19:52
== END 2021-10-19 13:11 | disposition home health service (06) | DRG 304 ==
LOC: EDUNIT# 12:09 → ER 12:10 → ICU 15:11 → 4TH 10-15 16:20
PROVIDERS: ADMIT Internal Medicine; ATTEND Internal Medicine
PROC: 009U3ZX Drainage of Spinal Canal, Percutaneous Approach, Diagnostic (ICD-10-PCS; principal; 2021-10-11)
PROC: 5A1945Z Respiratory Ventilation, 24-96 Consecutive Hours (ICD-10-PCS; 2021-10-11)
PROC: 0BH17EZ Insertion of Endotracheal Airway into Trachea, Via Natural or Artificial Opening (ICD-10-PCS; 2021-10-11)
DX: I16.0 Hypertensive urgency (principal); J96.00 Acute respiratory failure, unspecified whether with hypoxia or hypercapnia; I67.4 Hypertensive encephalopathy; E87.2 Acidosis; I10 Essential (primary) hypertension; R41.0 Disorientation, unspecified; E11.9 Type 2 diabetes mellitus without complications; E87.6 Hypokalemia; E07.9 Disorder of thyroid, unspecified; Z20.822 Contact with and (suspected) exposure to COVID-19; Z85.3 Personal history of malignant neoplasm of breast; Z79.84 Long term (current) use of oral hypoglycemic drugs
CPT/HCPCS: 36415; 36600; 70450; 70496; 70498; 70551; 71045; 72125; 80048; 80053; 80061; 80306; 80320; 81000; 82247; 82248; 82805; 82945; 82947; 83605; 83615; 83735; 84100; 84145; 84157; 84439; 84443; 84478; 84481; 84484; 85007; 85025; 85027; 85379; 85610; 85730; 86141; 87040; 87070; 87081; 87205; 87636; 89051; 93005; 93041; 94002; 94003; 94761; 94799

== ENCOUNTER → 2021-11-25 | Outpatient (CLI) | payer MEDICARE ==
[~2021-11-25] VITALS: Ht 170.2 cm; Wt 91.8 kg
[~2021-11-25] MED LIST: AMLO-250 PO; CLN.1T PO; GLMP2T PO; HYDR25TA4 PO; LIDOCAINE 1% INJ 20 ML VIAL INJ ONE; LIDOCAINE 1% INJ 20 ML VIAL ONE; LISI1TAB48 PO; METF-399 PO; MICO90PO TOP; POTA-169 PO
--- NOTE | 2021-11-25 14:13 | Diagnostic Imaging Report ---
INDICATION: Thyroid nodules. Patient presents for ultrasound guided fine-needle aspiration and biopsy. DETAILS OF THE PROCEDURE: The patient was brought to the procedure room and placed on the table in the supine position. Ultrasound imaging of the left neck was performed to evaluate for an appropriate entry site. The left neck was then prepped and draped in normal sterile fashion. A total of four passes was made into the dominant solid mass in the left lobe of the thyroid utilizing 25-gauge needles and fine needle aspiration technique. A single pass was made with a Rotex needle and a Rotex biopsy was performed. Hemostasis was obtained. The patient tolerated the procedure well and left the Department in stable condition. IMPRESSION: Successful ultrasound guided fine needle aspiration and Rotex biopsy of the dominant solid mass in the left lobe of the thyroid. Pathology results are currently pending. Dictated by: Dictated on workstation # [id number]
== END ==
LOC: RAD 13:00
PROVIDERS: ATTEND Pediatrics
DX: E04.2 Nontoxic multinodular goiter (principal); E05.90 Thyrotoxicosis, unspecified without thyrotoxic crisis or storm
CPT/HCPCS: 10005

== ENCOUNTER → 2022-06-15 | Outpatient (CLI) | payer MEDICARE ==
[~2022-06-15] MED LIST changes: -LIDOCAINE 1% INJ 20 ML VIAL INJ ONE; -LIDOCAINE 1% INJ 20 ML VIAL ONE
--- NOTE | 2022-06-15 15:36 | Diagnostic Imaging Report ---
INDICATION: Routine screening. Comparison is made with prior mammogram of 06/08/2021 and 06/10/2020. 2-D and 3-D bilateral screening mammography was performed with CAD. Scattered fibroglandular densities are identified bilaterally. A benign nodule in the outer right breast posterior depth is stable. There are post-therapeutic changes in the left breast, which appear stable. There is a density in the retroareolar slightly upper right breast which appears more prominent than prior exams. This may be in the medial retroareolar right breast on the CC view. Additional views are recommended. No malignant-appearing microcalcifications are seen. Axillae are unremarkable. IMPRESSION: Right breast density. Additional views are recommended for further evaluation. ACR BI-RADS Category 0: Incomplete. (Needs additional imaging evaluation). Result letter will be mailed to the patient. Note: At least 10% of breast cancer is not imaged by mammography. BI-RADS 0 Dictated by: Dictated on workstation # [id number]
== END ==
LOC: RAD 09:50
PROVIDERS: ATTEND Internal Medicine Hematology & Oncology
DX: D05.12 Intraductal carcinoma in situ of left breast (principal); N63.10 Unspecified lump in the right breast, unspecified quadrant
CPT/HCPCS: 77063; 77067

== ENCOUNTER → 2022-06-28 | Outpatient (CLI) | payer MEDICARE ==
--- NOTE | 2022-06-28 12:49 | Diagnostic Imaging Report ---
INDICATION: Right breast density. Patient presents for additional views. TECHNIQUE: Unilateral right 2D and 3D diagnostic mammography was performed. This included spot compression CC and ML views as well as conventional 90 degree lateral views. FINDINGS: There is a slightly irregular density in the upper and slightly inner right breast 2 cm from the nipple. This is indeterminate. There are some calcifications present. No other abnormalities are seen. IMPRESSION: Irregular density in the upper inner right breast 2 cm from the nipple. Further evaluation with ultrasound is recommended and will be performed today. ACR BI-RADS Category 0: Incomplete. (Needs additional imaging evaluation). Result letter will be mailed to the patient. Note: At least 10% of breast cancer is not imaged by mammography. Dictated by: Dictated on workstation # [id number]
--- NOTE | 2022-06-28 13:55 | Diagnostic Imaging Report ---
INDICATION: Abnormal mammogram and right breast density. This study is performed for further evaluation. FINDINGS: Sonographic interrogation of the upper inner right breast 2 cm from the nipple was performed. There is a slightly irregular hypoechoic nodule at the 1 o'clock location measuring 6 mm x 3 mm x 5 mm. This likely accounts for the irregular density noted mammographically. No definite internal vascularity is seen. No other masses are detected. IMPRESSION: Irregular hypoechoic nodule at the 1 o'clock location of the right breast 2 cm from the nipple corresponding with the mammographic density. A small breast neoplasm cannot be entirely excluded. Tissue sampling is recommended. This would be amenable to ultrasound-guided core biopsy. ACR BI-RADS Category 4: Suspicious abnormality. Dictated by: Dictated on workstation # [id number]
== END ==
LOC: RAD 12:13
PROVIDERS: ATTEND Nurse Practitioner Adult Health
DX: N63.12 Unspecified lump in the right breast, upper inner quadrant (principal)
CPT/HCPCS: 76642; 77065; G0279

== ENCOUNTER → 2022-07-05 | Outpatient (CLI) | payer MEDICARE ==
[~2022-07-05] VITALS: Ht 167.6 cm; Wt 96.4 kg
[~2022-07-05] MED LIST changes: +LIDOCAINE 1% INJ 30 ML (XYLOCAINE) VIAL INJ ONE
--- NOTE | 2022-07-05 15:26 | Diagnostic Imaging Report ---
INDICATION: Right breast density. Patient is status post ultrasound-guided right breast biopsy. FINDINGS: Unilateral right 2D CC and ML mammography demonstrates a marker clip in the retroareolar slightly upper medial right breast, status post ultrasound-guided biopsy. IMPRESSION: Marker clip placement, as described. Dictated by: Dictated on workstation # [id number]
--- NOTE | 2022-07-05 15:36 | Diagnostic Imaging Report ---
INDICATION: Right breast nodule. The patient presents for a biopsy with ultrasound. The patient was brought to the sonography suite, placed on table in the supine position. Ultrasound imaging of the right breast was performed to evaluate appropriate entry site. The right breast was then prepped and draped in the usual sterile fashion. A small amount 1% lidocaine was utilized for local anesthesia. A 13-gauge handheld mammotome device was placed with its biopsy chamber just deep to the hypoechoic nodule at the 1:00 location of the right breast. Multiple core biopsies were obtained with a vacuum-assisted device. A marker clip was then deployed. Hemostasis was obtained using manual compression. The patient tolerated the procedure well and was sent for a post procedure mammogram in satisfactory condition. IMPRESSION: Successful ultrasound-guided biopsy of the nodule at the 1:00 location of the right breast, utilizing the 13-gauge hand-held vacuum-assisted mammotome device. Pathology results are currently pending. Dictated by: Dictated on workstation # [id number]
== END ==
LOC: RAD 11:59
PROVIDERS: ATTEND Nurse Practitioner Adult Health
DX: N63.12 Unspecified lump in the right breast, upper inner quadrant (principal)
CPT/HCPCS: 19083; 77065; G0279

== ENCOUNTER → 2022-07-06 | Outpatient (CLI) | payer MEDICARE ==
[~2022-07-06] VITALS: Ht 167 cm; Wt 96.4 kg
[~2022-07-06] MED LIST changes: +ATOR40TA70 PO; +GLIM2TAB4 PO; -LIDOCAINE 1% INJ 30 ML (XYLOCAINE) VIAL INJ ONE; +LINA5TAB PO; +LISI20TA26 PO
== END ==
LOC: PREOP 05:27
PROVIDERS: ATTEND Surgery
DX: Z01.818 Encounter for other preprocedural examination (principal)

== ENCOUNTER 2022-07-13 08:12 | Day surgery (SDC) | payer MEDICARE ==
[~2022-07-13] VITALS: Ht 167 cm; Wt 96.4 kg
[2022-07-13] MEDS ORDERED: LACTATED RINGERS 1,000 ML IV STA (08:21)
[2022-07-13 08:30] VITALS: BP 152/80
[2022-07-13] MEDS ORDERED: PROPOFOL INJECTION 50 ML IV ONE (09:05)
[2022-07-13] MEDS ORDERED: MIDAZOLAM 2 MG/2 ML (VERSED) VIAL ONE (09:06)
--- NOTE | 2022-07-13 09:06 | Progress Note-Pre Operative ---
Pre-Operative Progress Note Date of Available H&P: Jun 23, 2022 Date H&P Reviewed: Jul 13, 2022 Time H&P Reviewed: 09:06 History & Physical: H&P Reviewed, Patient Examed, No changes noted Pre-Operative Diagnosis: Screening colonoscopy ROBIN HAND DO Jul 13, 2022 09:06
--- NOTE | 2022-07-13 10:11 | Discharge Inst-Simple/Standard ---
Discharge Inst-Standard Patient Instructions/Follow Up Plan of Care/Instructions/FU: Shakeel - 2 weeks Activity as Tolerated: Yes Discharge Diet: Regular Diet ROBIN HAND DO Jul 13, 2022 10:11
--- NOTE | 2022-07-13 10:13 | Anesthesia-General Post-Op ---
MAC Patient Condition Mental Status/LOC: Same as Preop Cardiovascular: Satisfactory Nausea/Vomiting: Absent Respiratory: Satisfactory Pain: Controlled Complications: Absent Post Op Complications Complications None Follow Up Care/Instructions Patient Instructions None needed. Anesthesiology Discharge Order Discharge Order Patient is doing well, no complaints, stable vital signs, no apparent adverse anesthesia problems. No complications reported per nursing. DARLENE SCHREIBER CRNA Jul 13, 2022 10:13
[2022-07-13 10:16] VITALS: BP 119/72
[2022-07-13 10:20] VITALS: BP 118/74
--- NOTE | 2022-07-13 16:12 | OPERATIVE REPORT ---
DATE OF SERVICE: 07/13/2022 PREOPERATIVE DIAGNOSES: Screening colonoscopy, history of polyps. PROCEDURE: Colonoscopy with hot biopsy polypectomy x2. SURGEON: Robin Beckford DO ANESTHESIA: Per SCENIC ARTIST. ESTIMATED BLOOD LOSS: None. COMPLICATIONS: None. INDICATIONS: The patient is a 71-year-old female, needing screening colonoscopy. She understands the risks and benefits of procedure and wished to proceed. Consent was signed in chart. DESCRIPTION OF PROCEDURE: The patient was taken to the endoscopy suite, placed in left lateral recumbent position. A timeout was performed. Scope was inserted. Digital rectal exam was performed. No palpable polyps, masses or ulcerations. Scope was inserted into the rectum advanced to cecum with minimal difficulty. Prep was adequate. The scope was slowly retracted back. No polyps, masses or ulcerations in the cecum. In the ascending colon, two polyps were present, which hot biopsy polypectomies were performed. Scope was then continuously retracted back. No polyps, masses or ulcerations in remainder of the ascending, transverse, descending and sigmoid colon. Once in the rectum, scope was retroflexed noting no other pathology. Scope was returned to its normal position, slowly withdrawn until completely removed. The patient tolerated the procedure well without any complications, taken to recovery room in stable condition. RECOMMENDATIONS: The patient will need repeat colonoscopy on likely as needed basis depending on pathology. If wanted to continue would be five years due to history of polyps and current polyps Job ID: [id number] DocumentID: [id number] Dictated Date: 07/13/2022 10:11:53 Certified Energy Manager Date: 07/13/2022 16:10:00 Dictated By: ROBIN BECKFORD DO MTDD
== END 2022-07-13 10:45 | disposition home or self-care (01) ==
LOC: ENDO 08:12
PROVIDERS: ATTEND Surgery
DX: Z12.11 Encounter for screening for malignant neoplasm of colon (principal); K63.5 Polyp of colon; E11.9 Type 2 diabetes mellitus without complications; E66.01 Morbid (severe) obesity due to excess calories; Z68.34 Body mass index [BMI] 34.0-34.9, adult; Z85.41 Personal history of malignant neoplasm of cervix uteri; Z79.84 Long term (current) use of oral hypoglycemic drugs; Z85.3 Personal history of malignant neoplasm of breast
CPT/HCPCS: 88305

== ENCOUNTER 2022-07-19 05:29 | Outpatient (CLI) | payer MEDICARE ==
[~2022-07-19] VITALS: Ht 170.2 cm; Wt 102.6 kg
[~2022-07-19 05:29] MED LIST changes: -MULT-1136 PO
[2022-07-19] MEDS ORDERED: LINA5TAB PO (13:42)
[2022-07-19] MEDS ORDERED: MULT-1136 PO (13:42)
== END 2022-07-19 13:44 | disposition home or self-care (01) ==
LOC: PREOP 05:29
PROVIDERS: ATTEND Surgery
DX: Z01.818 Encounter for other preprocedural examination (principal)

== ENCOUNTER → 2022-07-19 | Outpatient (CLI) | payer MEDICARE ==
[~2022-07-19] MED LIST changes: +MULT-1136 PO
--- NOTE | 2022-07-19 10:47 | Diagnostic Imaging Report ---
INDICATION: Left breast lump. Patient has had prior lumpectomy and radiation therapy to the left breast. COMPARISON: Correlation is made with the recent screening mammogram from 06/15/2022. FINDINGS: Sonographic interrogation of the upper inner aspect of the left breast was performed. There is a partially calcified hypoechoic mass at the 10 o'clock location of the left breast 5 to 6 cm from the nipple measuring 1.5 x 1.0 x 1.6 cm. This correlates to the lumpectomy site on the recent mammogram and is all likely post surgical changes. No discrete fluid collection is identified. IMPRESSION: Post-lumpectomy changes at the area of palpable abnormality in the upper inner left breast. ACR BI-RADS Category 2: Benign findings. Dictated by: Dictated on workstation # [id number]
== END ==
LOC: RAD 09:34
PROVIDERS: ATTEND Surgery
DX: N63.20 Unspecified lump in the left breast, unspecified quadrant (principal); Z98.890 Other specified postprocedural states; Z92.3 Personal history of irradiation
CPT/HCPCS: 76641

== ENCOUNTER 2022-07-22 05:52 | Day surgery (SDC) | payer MEDICARE ==
[2022-07-22] VITALS (11 sets, daily range): BP systolic 134–176; BP diastolic 64–95
[~2022-07-22] VITALS: Ht 170.2 cm; Wt 102.6 kg
[~2022-07-22 05:52] MED LIST changes: +MULT-1136 PO
[2022-07-22] MEDS ORDERED: ceFAZolin INJECTION 2,000 MG in NS (IVPB) 50 ML IV ONE (06:30)
[2022-07-22] MEDS: LACTATED RINGERS 1,000 ML IV PRN ×2 (06:32→10:08)
[2022-07-22] MEDS ORDERED: ONDANSETRON 4 MG/2 ML (SDV) Z0FRAN IVP ONE (06:45)
[2022-07-22] MEDS ORDERED: FAMOTIDINE 20MG/2ML IV (PEPCID) IVP ONE (06:45)
[2022-07-22] MEDS ORDERED: FAMOTIDINE 20MG/2ML IV (PEPCID) ONE (06:50)
[2022-07-22] MEDS ORDERED: ONDANSETRON 4 MG/2 ML (SDV) Z0FRAN ONE ×2 (06:50→08:04)
[2022-07-22] MEDS ORDERED: BUP/EPI 0.5% 1:200,000 (SENSORCAINE) 30 ML VIAL ONE (07:26)
[2022-07-22] MEDS ORDERED: METHYLENE BLUE 0.5% (PROVAYBLUE) 50 mg/10 ml vial IV ONE ×2 (07:26→08:38)
[2022-07-22] MEDS ORDERED: LIDOCAINE PF 2% 5 ML (XYLOCAINE) VIAL ONE (08:04)
[2022-07-22] MEDS ORDERED: proPOfol 200 MG/20 ML (DIPRIVAN) VIAL IV ONE (08:04)
[2022-07-22] MEDS ORDERED: LIDOCAINE 1% INJ 30 ML (XYLOCAINE) VIAL ONE (08:09)
[2022-07-22] MEDS ORDERED: LIDOCAINE 1% INJ 30 ML (XYLOCAINE) VIAL INJ ONE (08:15)
--- NOTE | 2022-07-22 08:55 | Progress Note-Pre Operative ---
Pre-Operative Progress Note Date of Available H&P: Jul 16, 2022 Date H&P Reviewed: Jul 22, 2022 Time H&P Reviewed: 08:55 History & Physical: H&P Reviewed, Patient Examed, No changes noted Pre-Operative Diagnosis: right breast infiltrating ductal carcinoma ROBIN HAND DO Jul 22, 2022 08:55
[2022-07-22] MEDS ORDERED: fentaNYL INJ 100 MCG/2 ML AMP ONE (09:04)
[2022-07-22] MEDS: BUP/EPI 0.5% 1:200,000 (SENSORCAINE) 30 ML VIAL INJ ONE (09:48)
[2022-07-22] MEDS ORDERED: ACHD5005 PO (10:29)
--- NOTE | 2022-07-22 10:31 | Discharge Inst-Simple/Standard ---
Discharge Inst-Standard Discharge Medications New, Converted or Re-Newed RX: Transmitted to Pharmacy Patient Instructions/Follow Up Plan of Care/Instructions/FU: 2 weeks Shakeel Activity as Tolerated: No Discharge Diet: Regular Diet Other Inst to Patient Follow up Appt: Make appointment for 2 week. Instructions: No lifting greater than 10 pounds. No strenuous activity. May shower in 24 hours, no tub bath or soaking. Use incentive spirometer at home as directed. No Smoking Skin/Wound Care: You have special glue over your incision that will fall off on it's own. Wear supportive bra sports bra) till in the office. Change bandage daily and as needed. Don't need one after 24 hours unless for comfort. Symptoms to Report: Appetite Changes, Extremity Discoloration, Numbness/Tingling, Swelling Increased, Bleeding Excessive, Eyesight Changes, Pain Increased, Urine Color Change, Constipation(Persistent), Fever over 101 degree F, Pain/Pressure in chest, Urinating Difficulty, Cough Up/Vomit Blood, Heart Beat Irreg/Pounding, Pain/Pressure in jaw, Vaginal Bleeding Increase, Cramps in feet or legs, Lightheadedness, Pain/Pressure in shoulder, Diarrhea(Persistent), Memory Changes Suddenly, Questions/Concerns, Weight gain consecutive days, Dizziness/Fainting, Nausea/Vomiting, Shortness of Breath, Weight gain over 2 pounds If questions or concerns contact your physician Or seek help at emergency department. ROBIN HAND DO Jul 22, 2022 10:31
[2022-07-22] MEDS ORDERED: KETOROLAC 30 MG/ML VIAL ONE (10:43)
--- NOTE | 2022-07-22 10:50 | Anesthesia-General Post-Op ---
General Patient Condition Mental Status/LOC: Same as Preop Cardiovascular: Satisfactory Nausea/Vomiting: Absent Respiratory: Satisfactory Pain: Controlled Complications: Absent Post Op Complications Complications None Follow Up Care/Instructions Patient Instructions None needed. Anesthesia/Patient Condition Patient Condition Patient is doing well, no complaints, stable vital signs, no apparent adverse anesthesia problems. No complications reported per nursing. TOREY NOBLE CRNA Jul 22, 2022 10:50
[2022-07-22] MEDS ORDERED: morphine INJ 10 MG/ML 1ML (SYR OR VIAL) IVP ONE (11:00)
[2022-07-22] MEDS ORDERED: ONDANSETRON 4 MG/2 ML (SDV) Z0FRAN IVP PRN (11:00)
[2022-07-22] MEDS ORDERED: fentaNYL INJ 100 MCG/2 ML AMP IVP ONE (11:00)
--- NOTE | 2022-07-22 11:42 | Diagnostic Imaging Report ---
Indication: Right breast carcinoma. Patient presents for ultrasound-guided hookwire localization. Patient brought to the sonographic suite placed on the bed in the supine position. Ultrasound imaging of the right breast was performed to evaluate appropriate entry site. The breast was then prepped and draped in usual sterile fashion. Small amount of 1% lidocaine was utilized for local anesthesia. Localizing needle was advanced through the hypoechoic nodule in the 1:00 location right breast, 2 cm from the nipple. Hookwire was deployed and the needle was removed. Hookwire was affixed to the patient's skin. Patient tolerated the procedure well and was sent for post procedure mammogram in satisfactory condition. IMPRESSION: Successful ultrasound-guided hookwire localization of right breast lesion 1:00 location, 2 cm from the nipple. Dictated by: Dictated on workstation # [id number]
--- NOTE | 2022-07-22 14:19 | Diagnostic Imaging Report ---
Indication: Right breast carcinoma. Patient status post hookwire localization using ultrasound guidance. Unilateral right 2-D CC and ML mammography was performed. A hookwire is noted in the retroareolar aspect of the right breast, status post placement by ultrasound. IMPRESSION: Hookwire localization, as described. Dictated by: Dictated on workstation # [id number]
--- NOTE | 2022-07-22 15:22 | Diagnostic Imaging Report ---
INDICATION: Right breast carcinoma. Total of 1.1 mCi technetium 99m Lymphoseek was injected in 4 separate aliquots in the right periareolar region. Imaging was performed. There was migration of activity to the right axilla. This was marked on the patient's skin. Patient tolerated procedure well. IMPRESSION: Right breast lymphoscintigraphy, as described. Dictated by: Dictated on workstation # [id number]
--- NOTE | 2022-07-22 16:19 | Diagnostic Imaging Report ---
INDICATION: Right breast carcinoma status post lumpectomy. Specimen radiograph was submitted. Within the specimen there is a hookwire as well as the marker clip. IMPRESSION: Marker clip and hook wire are located within the specimen. Dictated by: Dictated on workstation # [id number]
--- NOTE | 2022-07-23 10:06 | OPERATIVE REPORT ---
DATE OF SERVICE: 07/22/2022 PREOPERATIVE DIAGNOSIS: Infiltrating ductal carcinoma. POSTOPERATIVE DIAGNOSIS: Infiltrating ductal carcinoma. PROCEDURE: Right breast wire localized lumpectomy with sentinel node biopsy. SURGEON: Robin Beckford DO DATA ENTRY CLERK: Dr. Wheatley, who assisted in retraction, dissection, and closure. ANESTHESIA: General. ESTIMATED BLOOD LOSS: Minimal. COMPLICATIONS: None. INDICATIONS: The patient is a 71-year-old female with an infiltrating ductal carcinoma of the right breast. She understood the risks and benefits of the procedure and wished to proceed. Consent was signed and is on the chart. DESCRIPTION OF PROCEDURE: The patient was taken to the operating suite. She was prepped and draped in sterile fashion. Timeout was performed. Methylene blue was injected in 4 locations around the tumor area and massaged for 10 minutes for lymphatic distribution. The area of the breast was then reprepped and draped in a sterile fashion. Local anesthetic was infiltrated and a semi-areolar incision was made around the right breast, which then was able to be have the wire incorporated through the incision. Cautery was then used to dissect circumferentially around the wire until the specimen was able to be removed in its entirety. Hemostasis was achieved. This was then tagged with a long suture lateral, short suture superiorly and 2 long sutures deep. The wound was then irrigated with copious amounts of sterile water. Hemostasis was achieved. The subcutaneous tissues were then reapproximated using 3-0 Vicryl. The skin was then closed using 4-0 Monocryl. A new setup was then used the gamma probe to isolate the sentinel node over the [ ] area of the right axillary area. A 15 blade scalpel was used to make an incision. Cautery was used to dissect down to the subcutaneous tissues and node was identified using the gamma probe and there is also purple, in vivo was 757, ex vivo was 1075. Hemostasis was achieved. The gamma probe was then used to continue to inspect for other lymph nodes and also looking for any methylene blue dyed lymph nodes or any large palpable nodes. No other nodes were found and that were greater than 10%. The wound was then irrigated. Hemostasis was achieved. The skin was then closed using 4-0 Monocryl. The areas were then washed and dried and skin Affix was placed over the incisions. The patient tolerated the procedure well without any complications. She was taken to recovery room in stable condition. CC: Dr. Stark--requested, unable to deliver Job ID: [id number] DocumentID: [id number] Dictated Date: 07/22/2022 22:13:25 Flatwork Finisher Date: 07/23/2022 09:05:00 Dictated By: ROBIN BECKFORD DO
== END 2022-07-22 12:36 | disposition home or self-care (01) ==
LOC: CARD 05:52
PROVIDERS: ATTEND Surgery
DX: C50.911 Malignant neoplasm of unspecified site of right female breast (principal); N63.20 Unspecified lump in the left breast, unspecified quadrant; E66.9 Obesity, unspecified; Z68.35 Body mass index [BMI] 35.0-35.9, adult; E11.9 Type 2 diabetes mellitus without complications; Z79.84 Long term (current) use of oral hypoglycemic drugs
CPT/HCPCS: 19285; 19301; 38525; 76098; 77065; 78195; 82947; 87081; A4648; A9520; A9541; G0279

== ENCOUNTER → 2022-09-17 | Outpatient (RCR) | payer MEDICARE ==
[~2022-09-17] MED LIST changes: +ACHD5005 PO
== END | disposition home or self-care (01) ==
LOC: ONC 08-30 08:40
PROVIDERS: ATTEND Radiology Radiation Oncology
DX: Z51.0 Encounter for antineoplastic radiation therapy (principal); D05.12 Intraductal carcinoma in situ of left breast; D05.11 Intraductal carcinoma in situ of right breast; I10 Essential (primary) hypertension; Z85.41 Personal history of malignant neoplasm of cervix uteri
CPT/HCPCS: 77280; 77290; 77295; 77300; 77334; 77336; 77470; 99205

== ENCOUNTER 2022-10-06 09:04 | Outpatient (RCR) | payer MEDICARE | END 2022-10-17 | disposition home or self-care (01) | LOC: ONC 09:04 | PROVIDERS: ATTEND Radiology Radiation Oncology | DX: Z51.0 Encounter for antineoplastic radiation therapy (principal); C50.911 Malignant neoplasm of unspecified site of right female breast; I10 Essential (primary) hypertension; E66.9 Obesity, unspecified; Z98.890 Other specified postprocedural states; Z85.41 Personal history of malignant neoplasm of cervix uteri | CPT/HCPCS: 77307; 77334; 77336; 77417 ==

== ENCOUNTER 2022-11-18 10:14 | Outpatient (RCR) | payer MEDICARE | END 2022-12-17 | disposition home or self-care (01) | LOC: ONC 10:14 | PROVIDERS: ATTEND Radiology Radiation Oncology | DX: C50.911 Malignant neoplasm of unspecified site of right female breast (principal); I10 Essential (primary) hypertension; E66.9 Obesity, unspecified | CPT/HCPCS: 99213 ==